=== PATIENT | male | born 1975 | race Caucasian/White ===

== ENCOUNTER 2017-07-29 14:56 | Inpatient (IN) | payer OTHER ==
[2017-07-29] MEDS ORDERED: PHARMACY DOSING REQUEST MC ONE (15:32)
[2017-07-29 15:51] LABS: Hematocrit 47.3 % (42-50); Hemoglobin 15.5 gm/dl (12.5-18.0); Mean Cell Volume 87.8 fl (78-100); Mean Corpuscular Hemoglobin 28.8 pg (26-32); Mean Corpuscular Hgb Concent. 32.8 g/dl (32-36); Mean Platelet Volume 12.5 fl (6-9.5); Platelet Count 234 K/mm3 (150-450); Red Blood Count 5.39 M/mm3 (4.1-5.6); Red Cell Distribution Width 14.6 % (11.5-14.0); White Blood Count 12.6 K/mm3 (4.0-10.5)
[2017-07-29 16:13] LABS: ALBUMIN 4.5 g/dL (3.5-5.0); ALKALINE PHOSPHATASE 49 U/L (38-126); ANION GAP 17.3 MEQ/L (5-15); BLOOD UREA NITROGEN 13 mg/dL (9-20); CHLORIDE 101 mmol/L (98-107); Calcium 9.8 mg/dL (8.4-10.2); Carbon Dioxide 25 mmol/L (22-30); Creatinine 1 1.01 mg/dL (0.66-1.25); Glucose 111 mg/dL (74-106); SGOT/AST 23 U/L (17-59); SGPT/ALT 31 U/L (0-50); SODIUM 140 mmol/L (137-145); Total Protein 8.1 g/dL (6.3-8.2)
[2017-07-29] MEDS: Sodium Chloride 0.9% 1000 ML 1,000 ML IV SCH (16:14)
[2017-07-29] MEDS: FLAGYL 500 MG IVPB 500 MG/100 ML BAG IV SCH ×2 (16:15→22:58)
[2017-07-29] MEDS: MORPHINE SULFATE 4 MG INJ IV PRN ×2 (17:22→21:19)
[2017-07-29] MEDS: MERREM IV SCH ×2 (17:22→21:17)
[2017-07-29] MEDS: DEXTROSE IV SCH ×2 (17:22→21:17)
[2017-07-29] MEDS: WATER IV SCH ×2 (17:22→21:17)
[2017-07-30] MEDS: MORPHINE SULFATE 4 MG INJ IV PRN ×3 (02:55→20:42)
[2017-07-30] MEDS: Sodium Chloride 0.9% 1000 ML 1,000 ML IV SCH ×2 (04:38→19:11)
[2017-07-30] MEDS: DEXTROSE IV SCH ×3 (05:01→22:04)
[2017-07-30] MEDS: MERREM IV SCH ×3 (05:01→22:04)
[2017-07-30] MEDS: WATER IV SCH ×3 (05:01→22:04)
[2017-07-30 05:52] LABS: Hemoglobin 15.1 gm/dl (12.5-18.0); Mean Cell Volume 88.8 fl (78-100); Mean Corpuscular Hemoglobin 29.2 pg (26-32); Mean Corpuscular Hgb Concent. 32.8 g/dl (32-36); Mean Platelet Volume 12.6 fl (6-9.5); Platelet Count 213 K/mm3 (150-450); Red Blood Count 5.18 M/mm3 (4.1-5.6); Red Cell Distribution Width 14.5 % (11.5-14.0); White Blood Count 13.9 K/mm3 (4.0-10.5)
[2017-07-30] MEDS: FLAGYL 500 MG IVPB 500 MG/100 ML BAG IV SCH ×3 (06:37→23:26)
--- NOTE | 2017-07-30 09:50 | CONS ---
CONSULT DATE: 07/29/2017 HISTORY: The patient is a 41 year-old male who started having left lower quadrant pain over the past couple of weeks that was worse yesterday. He apparently went over to [facility] and had CT scan done that was read by the radiologist about 6:00 showing diverticulitis, question of microperforation, whether that was not called to the ordering physician or not but he did not see Dr. Trevino until today who referred him to the hospital for admission. PAST MEDICAL HISTORY: The patient said he has diabetes but he does not take any medications for it in a long time. Apparently history of some hypertension as well. PAST SURGICAL HISTORY: He denied any abdominal surgery. He denied any colonoscopy in the past. He did have right finger surgery in the past in 2003. MEDICATIONS: He has taken some Colace and Nexium in the past. ALLERGIES: NKDA. FAMILY HISTORY: Diabetes, heart disease, some stroke in the family. He has family history of some diverticular disease, negative for colon cancer. SOCIAL HISTORY: He denies alcohol abuse. One pack per day smoker. REVIEW OF SYSTEMS: Twelve systems reviewed per admission assessment. He denies any liver problems or hepatitis. He is overweight. No chest pain or palpitations other systems negative or noncontributory as above and per preadmission questionnaire. PHYSICAL EXAMINATION: GENERAL: No acute distress. Afebrile currently. HEENT: Sclera nonicteric. NECK: No JVD. CHEST: Equal excursion, nonlabored breathing. CVS: Regular rate and rhythm. ABDOMEN: Quite soft. He does have some tenderness in left lower quadrant. No rebound currently. EXTREMITIES: No edema. He has some tattoos. NEURO: Alert. He seems to be moving extremities grossly symmetrically. LAB DATA AND TESTS: White blood cell count 12 done this afternoon. Liver function tests fairly unremarkable. Hemoglobin 15.5, PLT count 234,000. CT scan again done yesterday apparently looked like the reading time was 6:00 by [facility] Radiologist showed some wall thickening, inflammation of sigmoid colon. Question whether acute diverticulitis or postoperative gas, question microperforation but no large collection, no mass or free air. Appendix is normal. No other acute inflammatory changes in the abdomen. He also had some renal cysts apparently. IMPRESSION: Acute left lower quadrant pain. CT findings suggestive of acute diverticulitis on CT scan done yesterday with possible microperforation. I do not feel he needs any emergent surgery now. I do feel he needs a trial of IV antibiotics, medical management, bowel rest until his pain dramatically improves. He denies any bloody stools. Again, he has not been on antibiotics the past two weeks so he needs a good trial of IV antibiotics and bowel rest. He understands though I do not think he needs emergent surgery right at this moment but if he fails to improve may need to consider follow up progress CT scan. If he significantly worsens would need to consider open laparotomy and resection possible ostomy. He prefers to try the conservative approach at this time. Again, will follow serial labs, exams, continue IV antibiotics, bowel rest for now and IV hydration. Likely one of my partners will stop by and check on him tomorrow on his way through from [facility].
--- NOTE | 2017-07-30 11:48 | PCM.NOTE ---
Date and Time: 07/30/17 114 Subjective Assessment: still c/o abdominal pain, - Review of Systems Constitutional: No Fever, No Chills Eyes: No Symptoms Ears, Nose, & Throat: No Symptoms Respiratory: No Cough, No Short Of Breath Cardiac: No Chest Pain, No Edema, No Syncope Abdominal/Gastrointestinal: Abdominal Pain, No Nausea, No Vomiting, No Diarrhea Genitourinary Symptoms: No Dysuria Musculoskeletal: No Back Pain, No Neck Pain Skin: No Rash Neurological: No Dizziness, No Focal Weakness, No Sensory Changes Psychological: No Symptoms Endocrine: No Symptoms Hematologic/Lymphatic: No Symptoms Immunological/Allergic: No Symptoms Objective Exam General Appearance: no apparent distress, alert Neurologic Exam: alert, oriented x 3, cooperative, normal mood/affect, nml cerebellar function, sensation nml, No motor deficits Skin Exam: normal color, warm, dry Eye Exam: PERRL, EOMI, eyes nml inspection Ears, Nose, Throat Exam: normal ENT inspection, pharynx normal, moist mucous membranes Neck Exam: normal inspection, non-tender, supple, full range of motion Respiratory Exam: normal breath sounds, lungs clear, No respiratory distress Cardiovascular Exam: regular rate/rhythm, normal heart sounds Gastrointestinal/Abdomen Exam: soft, tenderness (LLQ), No mass Extremity Exam: normal inspection, normal range of motion Back Exam: normal inspection, normal range of motion, No CVA tenderness, No vertebral tenderness Male Genitalia Exam: deferred Rectal Exam: deferred OBJECTIVE DATA Vital Signs: Vital Signs - 24 hr Temp Pulse Resp BP Pulse Ox 07/30/17 07:28 98.2 F 77 20 126/59 94 L 07/30/17 04:00 98.0 F 77 18 138/66 93 L 07/30/17 00:00 98.3 F 86 18 168/90 95 07/29/17 20:00 98.9 F 86 14 171/89 95 07/29/17 16:25 99.3 F 88 20 178/89 Pain Assessment - Last Documented Pain Intensity 8 Pain Scale Used 0-10 Pain Scale Intake and Output: Intake & Output 07/27/17 07/28/17 07/29/17 07/30/17 11:59 11:59 11:59 11:59 Intake Total 1222 Output Total 875 Balance 347 Weight 128.8 kg Lab Results: Lab Results-Last 24 Hours 07/29/17 07/29/17 07/30/17 Range/Units 15:48 15:48 05:28 WBC 12.6 H 13.9 H (4.0-10.5) K/mm3 RBC 5.39 5.18 (4.1-5.6) M/mm3 Hgb 15.5 15.1 (12.5-18.0) gm/dl Hct 47.3 46.0 (42-50) % MCV 87.8 88.8 (78-100) fl MCH 28.8 29.2 (26-32) pg MCHC 32.8 32.8 (32-36) g/dl RDW 14.6 H 14.5 H (11.5-14.0) % Plt Count 234 213 (150-450) K/mm3 MPV 12.5 H 12.6 H (6-9.5) fl Sodium 140 (137-145) mmol/L Potassium 4.0 (3.5-5.1) mmol/L Chloride 101 (98-107) mmol/L Carbon Dioxide 25 (22-30) mmol/L Anion Gap 17.3 H (5-15) MEQ/L BUN 13 (9-20) mg/dL Creatinine 1.01 (0.66-1.25) mg/dL Estimated GFR > 60.0 ML/MIN Glucose 111 H (74-106) mg/dL Calcium 9.8 (8.4-10.2) mg/dL Total Bilirubin 0.40 (0.2-1.3) mg/dL AST 23 (17-59) U/L ALT 31 (0-50) U/L Alkaline Phosphatase 49 (38-126) U/L Serum Total Protein 8.1 (6.3-8.2) g/dL Albumin 4.5 (3.5-5.0) g/dL Assessment/Plan (1) Abdominal pain Current Visit: Yes Status: Acute Qualifiers: Abdominal location: left lower quadrant Qualified Code(s): R10.32 - Left lower quadrant pain Code(s): R10.9 - UNSPECIFIED ABDOMINAL PAIN (2) Diverticulitis Current Visit: Yes Status: Acute Assessment & Plan: continue present management Code(s): K57.92 - DVTRCLI OF INTEST, PART UNSP, W/O PERF OR ABSCESS W/O BLEED
[2017-07-31] MEDS: DEXTROSE IV SCH ×3 (05:39→21:46)
[2017-07-31] MEDS: MERREM IV SCH ×3 (05:39→21:46)
[2017-07-31] MEDS: WATER IV SCH ×3 (05:39→21:46)
[2017-07-31 05:50] LABS: Hematocrit 45.3 % (42-50); Hemoglobin 14.6 gm/dl (12.5-18.0); Mean Corpuscular Hemoglobin 28.7 pg (26-32); Mean Corpuscular Hgb Concent. 32.2 g/dl (32-36); Mean Platelet Volume 12.5 fl (6-9.5); Platelet Count 214 K/mm3 (150-450); Red Blood Count 5.09 M/mm3 (4.1-5.6); Red Cell Distribution Width 14.5 % (11.5-14.0); White Blood Count 9.3 K/mm3 (4.0-10.5)
--- NOTE | 2017-07-31 07:49 | CONS ---
CONSULT DATE: 07/30/2017 REASON FOR CONSULT: Diverticulitis. HISTORY: He apparently presented to [facility] and had a CT scan showing diverticulitis with possible abscess. Films are not available at this time. The report is available on the chart. He presented and was admitted here at [facility]. He is feeling a little better. He has had some flatus. This is his first major episode. He has not had any colonoscopy to date. He has not had any trouble and this just started here in the last few days. He was feeling worse but he is feeling better. PHYSICAL EXAMINATION: He is a very robust gentleman. ABDOMEN: Pretty soft. There is no no rebound. There is a little bit of left lower quadrant tenderness. His CT is noted. His white count elevated. He is NPO and he has IV fluids and IV antibiotics going. IMPRESSION: Acute diverticulitis with possible extravasation abscess. We will review his films at [facility] later today.
[2017-07-31] MEDS: FLAGYL 500 MG IVPB 500 MG/100 ML BAG IV SCH ×3 (08:15→21:46)
--- NOTE | 2017-07-31 09:15 | PCM.NOTE ---
Date and Time: 07/31/17913 Subjective Assessment: still c/o abdominal pain - Review of Systems Constitutional: No Fever, No Chills Eyes: No Symptoms Ears, Nose, & Throat: No Symptoms Respiratory: No Cough, No Short Of Breath Cardiac: No Chest Pain, No Edema, No Syncope Abdominal/Gastrointestinal: Abdominal Pain, No Nausea, No Vomiting, No Diarrhea Genitourinary Symptoms: No Dysuria Musculoskeletal: No Back Pain, No Neck Pain Skin: No Rash Neurological: No Dizziness, No Focal Weakness, No Sensory Changes Psychological: No Symptoms Endocrine: No Symptoms Hematologic/Lymphatic: No Symptoms Immunological/Allergic: No Symptoms Objective Exam General Appearance: no apparent distress, alert Neurologic Exam: alert, oriented x 3, cooperative, normal mood/affect, nml cerebellar function, sensation nml, No motor deficits Skin Exam: normal color, warm, dry Eye Exam: PERRL, EOMI, eyes nml inspection Ears, Nose, Throat Exam: normal ENT inspection, pharynx normal, moist mucous membranes Neck Exam: normal inspection, non-tender, supple, full range of motion Respiratory Exam: normal breath sounds, lungs clear, No respiratory distress Cardiovascular Exam: regular rate/rhythm, normal heart sounds Gastrointestinal/Abdomen Exam: soft, tenderness (LLQ), No mass Extremity Exam: normal inspection, normal range of motion Back Exam: normal inspection, normal range of motion, No CVA tenderness, No vertebral tenderness Male Genitalia Exam: deferred Rectal Exam: deferred OBJECTIVE DATA Vital Signs: Vital Signs - 24 hr Temp Pulse Resp BP Pulse Ox 07/31/17 07:02 97.3 F 81 20 145/87 95 07/31/17 04:00 97.4 F 72 20 131/86 98 07/31/17 00:00 97.9 F 70 20 128/58 98 07/30/17 20:05 97.7 F 80 18 140/83 97 07/30/17 15:54 98.4 F 84 18 136/95 95 07/30/17 12:30 98 F 70 20 127/68 96 Pain Assessment - Last Documented Pain Intensity 3 Pain Scale Used 0-10 Pain Scale Intake and Output: Intake & Output 07/28/17 07/29/17 07/30/17 07/31/17 11:59 11:59 11:59 11:59 Intake Total 1222 1420 Output Total 596 7775 Balance 347 -355 Weight 128.8 kg Lab Results: Lab Results-Last 24 Hours 07/31/17 Range/Units 05:19 WBC 9.3 (4.0-10.5) K/mm3 RBC 5.09 (4.1-5.6) M/mm3 Hgb 14.6 (12.5-18.0) gm/dl Hct 45.3 (42-50) % MCV 89.0 (78-100) fl MCH 28.7 (26-32) pg MCHC 32.2 (32-36) g/dl RDW 14.5 H (11.5-14.0) % Plt Count 214 (150-450) K/mm3 MPV 12.5 H (6-9.5) fl Assessment/Plan (1) Abdominal pain Current Visit: Yes Status: Acute Qualifiers: Abdominal location: left lower quadrant Qualified Code(s): R10.32 - Left lower quadrant pain Code(s): R10.9 - UNSPECIFIED ABDOMINAL PAIN (2) Diverticulitis Current Visit: Yes Status: Acute Code(s): K57.92 - DVTRCLI OF INTEST, PART UNSP, W/O PERF OR ABSCESS W/O BLEED
[2017-07-31] MEDS: Sodium Chloride 0.9% 1000 ML 1,000 ML IV SCH (10:20)
[2017-08-01] MEDS: Sodium Chloride 0.9% 1000 ML 1,000 ML IV SCH (01:14)
[2017-08-01] MEDS: FLAGYL 500 MG IVPB 500 MG/100 ML BAG IV SCH (05:40)
[2017-08-01] MEDS: MORPHINE SULFATE 4 MG INJ IV PRN (05:44)
[2017-08-01] MEDS: DEXTROSE IV SCH (05:45)
[2017-08-01] MEDS: WATER IV SCH (05:45)
[2017-08-01] MEDS: MERREM IV SCH (05:45)
[2017-08-01 05:57] LABS: Hematocrit 44.6 % (42-50); Hemoglobin 14.4 gm/dl (12.5-18.0); Mean Cell Volume 88.8 fl (78-100); Mean Corpuscular Hemoglobin 28.7 pg (26-32); Mean Corpuscular Hgb Concent. 32.3 g/dl (32-36); Mean Platelet Volume 12.9 fl (6-9.5); Platelet Count 232 K/mm3 (150-450); Red Blood Count 5.02 M/mm3 (4.1-5.6); Red Cell Distribution Width 14.3 % (11.5-14.0); White Blood Count 7.3 K/mm3 (4.0-10.5)
--- NOTE | 2017-08-01 08:29 | CONS ---
HISTORY: The patient was seen yesterday in consultation for diverticulitis possible perforation and rupture. His films were reviewed at [facility] yesterday and seemed more of a phlegmon of the sigmoid, having not seen anything that could be radiologically or surgically drained at this time. He is doing better. His white count is normal. He is hungry. His abdomen is totally soft. He is a very robust gentleman with very large abdominal wall. Further films have been ordered. He will be reassessed tomorrow.
[2017-08-01 09:17] VITALS: PULSE 62; O2SAT 96
[2017-08-01 11:32] VITALS: BP 160/72
--- NOTE | 2017-08-01 11:53 | PCM.NOTE ---
Date and Time: 08/01/17 1151 Subjective Assessment: doing better, - Review of Systems Constitutional: No Fever, No Chills Eyes: No Symptoms Ears, Nose, & Throat: No Symptoms Respiratory: No Cough, No Short Of Breath Cardiac: No Chest Pain, No Edema, No Syncope Abdominal/Gastrointestinal: No Abdominal Pain, No Nausea, No Vomiting, No Diarrhea Genitourinary Symptoms: No Dysuria Musculoskeletal: No Back Pain, No Neck Pain Skin: No Rash Neurological: No Dizziness, No Focal Weakness, No Sensory Changes Psychological: No Symptoms Endocrine: No Symptoms Hematologic/Lymphatic: No Symptoms Immunological/Allergic: No Symptoms Objective Exam General Appearance: no apparent distress, alert Neurologic Exam: alert, oriented x 3, cooperative, normal mood/affect, nml cerebellar function, sensation nml, No motor deficits Skin Exam: normal color, warm, dry Eye Exam: PERRL, EOMI, eyes nml inspection Ears, Nose, Throat Exam: normal ENT inspection, pharynx normal, moist mucous membranes Neck Exam: normal inspection, non-tender, supple, full range of motion Respiratory Exam: normal breath sounds, lungs clear, No respiratory distress Cardiovascular Exam: regular rate/rhythm, normal heart sounds Gastrointestinal/Abdomen Exam: soft, No tenderness, No mass Extremity Exam: normal inspection, normal range of motion Back Exam: normal inspection, normal range of motion, No CVA tenderness, No vertebral tenderness Male Genitalia Exam: deferred Rectal Exam: deferred OBJECTIVE DATA Vital Signs: Vital Signs - 24 hr Temp Pulse Resp BP Pulse Ox 08/01/17 11:31 97.8 F 62 18 160/72 96 08/01/17 08:15 97.7 F 62 18 153/79 96 08/01/17 04:15 98.5 F 65 20 137/69 98 08/01/17 00:05 97.9 F 63 16 132/70 98 07/31/17 20:00 97.8 F 67 18 142/82 98 07/31/17 16:00 98.4 F 68 20 145/74 98 Pain Assessment - Last Documented Pain Intensity 4 Pain Scale Used 0-10 Pain Scale Intake and Output: Intake & Output 07/29/17 07/30/17 07/31/17 08/01/17 11:59 11:59 11:59 11:59 Intake Total 1222 1420 4614 Output Total 324 0605 1600 Balance 347 -355 3014 Weight 128.8 kg Lab Results: Lab Results-Last 24 Hours 08/01/17 Range/Units 05:23 WBC 7.3 (4.0-10.5) K/mm3 RBC 5.02 (4.1-5.6) M/mm3 Hgb 14.4 (12.5-18.0) gm/dl Hct 44.6 (42-50) % MCV 88.8 (78-100) fl MCH 28.7 (26-32) pg MCHC 32.3 (32-36) g/dl RDW 14.3 H (11.5-14.0) % Plt Count 232 (150-450) K/mm3 MPV 12.9 H (6-9.5) fl Assessment/Plan (1) Abdominal pain Current Visit: Yes Status: Acute Qualifiers: Abdominal location: left lower quadrant Qualified Code(s): R10.32 - Left lower quadrant pain Code(s): R10.9 - UNSPECIFIED ABDOMINAL PAIN (2) Diverticulitis Current Visit: Yes Status: Acute Code(s): K57.92 - DVTRCLI OF INTEST, PART UNSP, W/O PERF OR ABSCESS W/O BLEED
--- NOTE | 2017-08-01 13:19 | PCM.DS ---
Discharge Summary Date of Admission: 07/29/17 19:33 Admitting Physician: JEREMIAH MARTIN Consults: Consults on Case 07/29/17 15:32 Consult Surgery ROUTINE Primary Care Provider: JEREMIAH MARTIN Allergies Allergies No Known Drug Allergies Allergy (Verified 07/29/17 15:49) Hospital Summary - Hospital Course Hospital Course: Last Vital Signs Temp 97.8 F 08/01/17 11:31 Pulse 62 08/01/17 11:31 Resp 18 08/01/17 11:31 BP 160/72 08/01/17 11:31 Pulse Ox 96 08/01/17 11:31 Allergies No Known Drug Allergies Allergy (Verified 07/29/17 15:49) Active Medications Metronidazole (Flagyl 500 Mg Ivpb) 500 mg in 100 mls @ 200 mls/hr IV Q8HRT ANTIONETTE Stop: 08/28/17 15:59 Last Admin: 08/01/17 05:40 Dose: 200 mls/hr Sodium Chloride (Sodium Chloride 0.9% 1000 Ml) 1,000 mls @ 100 mls/hr IV .Q10H ANTIONETTE Stop: 08/28/17 15:44 Last Admin: 08/01/17 01:14 Dose: 100 mls/hr Meropenem 1 g/ Dextrose 100 mls @ 200 mls/hr IV Q8HT ANTIONETTE Stop: 08/28/17 16:14 Last Admin: 08/01/17 05:45 Dose: 200 mls/hr Morphine Sulfate (Morphine Sulfate 4 Mg Inj) 4 mg IV Q4H PRN PRN PRN Reason: PAIN Stop: 08/03/17 16:41 Last Admin: 08/01/17 05:44 Dose: 4 mg Intake & Output 08/01/17 08/02/17 11:59 11:59 Intake Total 4614 480 Output Total 1600 Balance 3014 480 Lab Tests 08/01/17 05:23 WBC 7.3 RBC 5.02 Hgb 14.4 Hct 44.6 MCV 88.8 MCH 28.7 MCHC 32.3 RDW 14.3 H Plt Count 232 MPV 12.9 H - Vitals & Intake/Output Vital Signs: Vital Signs Temperature 97.8 F 08/01/17 11:31 Pulse Rate 62 08/01/17 11:31 Respiratory Rate 18 08/01/17 11:31 Blood Pressure 160/72 08/01/17 11:31 O2 Sat by Pulse Oximetry 96 08/01/17 11:31 Intake & Output: Intake & Output 07/30/17 07/31/17 08/01/17 08/02/17 11:59 11:59 11:59 11:59 Intake Total 1222 1420 4614 480 Output Total 870 4355 1600 Balance 347 -855 3014 480 Weight 128.8 kg - Lab Result Diagrams: 08/01/17 05:23 07/29/17 15:48 Lab Results-Last 24 Hrs: Lab Results-Last 24 Hours 08/01/17 Range/Units 05:23 WBC 7.3 (4.0-10.5) K/mm3 RBC 5.02 (4.1-5.6) M/mm3 Hgb 14.4 (12.5-18.0) gm/dl Hct 44.6 (42-50) % MCV 88.8 (78-100) fl MCH 28.7 (26-32) pg MCHC 32.3 (32-36) g/dl RDW 14.3 H (11.5-14.0) % Plt Count 232 (150-450) K/mm3 MPV 12.9 H (6-9.5) fl - Procedures and Test Procedures and Tests throughout Hospitalization: Therapy Orders & Screens 07/29/17 17:22 Smoking Cessation Education ONCE Comment: Diagnosis: diverticulitis Smoking Status: Current every day smoker How long have you smoked: 20 years Have you smoked in the past 12 months: Yes Approximately how many cigarettes per day: pack a day Do you dip or chew tobacco: No Discharge Exam General Appearance: no apparent distress, alert Neurologic Exam: alert, oriented x 3, cooperative, normal mood/affect, nml cerebellar function, sensation nml, No motor deficits Skin Exam: normal color, warm, dry Eye Exam: PERRL, EOMI, eyes nml inspection Ears, Nose, Throat Exam: normal ENT inspection, pharynx normal, moist mucous membranes Neck Exam: normal inspection, non-tender, supple, full range of motion Respiratory Exam: normal breath sounds, lungs clear, No respiratory distress Cardiovascular Exam: regular rate/rhythm, normal heart sounds Gastrointestinal/Abdomen Exam: soft, No tenderness, No mass Extremity Exam: normal inspection, normal range of motion Back Exam: normal inspection, normal range of motion, No CVA tenderness, No vertebral tenderness Male Genitalia Exam: deferred Rectal Exam: deferred Final Diagnosis/Problem List - Final Discharge Diagnosis/Problem (1) Abdominal pain Current Visit: Yes Status: Resolved (2) Diverticulitis Current Visit: Yes Status: Resolved Assessment & Plan: will discharge home with flagyl 500 mg po tid for 7 days - Discharge Discharge Date: 08/01/17 Disposition: Home, Self-Care Condition: Stable Prescriptions: New Metronidazole 500 mg [Flagyl 500 MG] 500 mg PO TID #21 tablet Continue Esomeprazole Magnesium [Nexium] 20 mg PO BID Empagliflozin/Metformin HCl [Synjardy Xr 10-1,000 mg Tablet] 1,000 mg PO DAILY Instructions: Diverticulitis Follow up with: MARCO ANTONIO MARI [ACTIVE STAFF] - 09/04/17 1:05 pm (specialty clinic) JEREMIAH MARTIN MD [Primary Care Provider] - 1 Week
== END 2017-08-01 14:40 | disposition home or self-care (01) | DRG 392 ==
LOC: MED SURG 15:06 → OBSVTOIN 19:33 → MED SURG 19:33
PROVIDERS: ADMIT General Practice; ATTEND General Practice
DX: R10.32 Left lower quadrant pain (principal); K57.92 Diverticulitis of intestine, part unspecified, without perforation or abscess without bleeding
CPT/HCPCS: 36415; 80053; 85027; J2270

== ENCOUNTER 2017-10-02 11:22 | Day surgery (SDC) | payer OTHER ==
--- NOTE | 2017-10-01 15:27 | HP ---
DATE OF SURGERY: 10/02/2017 ANTICIPATED PROCEDURE: Colonoscopy. HISTORY OF PRESENT ILLNESS: The patient has diverticulitis about six weeks ago, presents for re-examination. PAST MEDICAL HISTORY: ALLERGIES: NONE. MEDICATIONS: Nexium. PAST SURGICAL HISTORY: Ring finger cut off on the right hand. SOCIAL HISTORY: One pack per day. ETOH negative. FAMILY HISTORY: Negative. PHYSICAL EXAMINATION: VITAL SIGNS: Normal. CHEST: Clear. COR: Regular. ABDOMEN: No palpable organomegaly or mass. IMPRESSION: Diverticulitis. PLAN: Evaluation.
[~2017-10-02 11:22] MED LIST: Lactated Ringers 1,000 ML IV SCH
[2017-10-02] MEDS ORDERED: Versed 2 MG/2 ML Injection IV ONE (11:23)
[2017-10-02] MEDS ORDERED: DIPRIVAN 200 MG/20 ML IV ONE (11:23)
[2017-10-02] MEDS ORDERED: Lactated Ringers 1,000 ML IV ONE (12:05)
--- NOTE | 2017-10-02 14:28 | OP ---
SURGERY DATE/TIME: 10/02/2017 1346 PREOPERATIVE DIAGNOSIS: Episode of diverticulitis 08/11/2017. POSTOPERATIVE DIAGNOSIS: Resolving diverticulosis. PROCEDURE: Colonoscopy complete to cecum. SURGEON: Darvin Dorman M.D. SKIVER HAND: Kleber Perez M.D. ANESTHESIA: MAC. COMPLICATIONS: None. CONDITION: Stable. INDICATION: The patient presents for evaluation. He had diverticulitis about six weeks ago. He has not had endoscopic examination to date. DESCRIPTION OF PROCEDURE: Taken to endoscopy. Left lateral decubitus position. Anal digital examination satisfactory. Scope introduced. Sigmoid was a little indurated, a little full and edematous. Descending colon normal. Splenic flexure normal. Transverse colon normal. Hepatic flexure normal. Ascending colon normal. Ileocecal valve normal. Circumferential withdrawal no mucosal lesions were noted. There was a little bit of fullness, induration and almost a semi polypoid-like nature to a little bit of the sigmoid colon. IMPRESSION: Resolving diverticulitis. PLAN: Observation.
[2017-10-02 16:08] VITALS: O2SAT 99
[2017-10-02 16:09] VITALS: BP 142/88; PULSE 76
== END 2017-10-02 15:20 | disposition home or self-care (01) ==
LOC: SDC 11:22
PROVIDERS: ATTEND Surgery
DX: K57.90 Diverticulosis of intestine, part unspecified, without perforation or abscess without bleeding (principal); Z72.0 Tobacco use; E11.9 Type 2 diabetes mellitus without complications
CPT/HCPCS: 82962; J2250; J2704

== ENCOUNTER 2019-03-14 15:57 | Emergency (ER) | payer OTHER ==
--- NOTE | 2019-03-14 16:25 | ERPHSYRPT ---
- History of Present Illness Time Seen by Provider: 03/14/19 16:24 Source: patient Exam Limitations: no limitations Patient Subjective Stated Complaint: Pt has a red, swollen, and open area on right butt cheek that is believed to be a spider bite, Triage Nursing Assessment: Pt walked into the ER, vitals wnl, pulses normal, rates pain 5/10, doesn't appear to be in any distress Physician History: The patient is a 43-year-old male with a past medical history significant for diabetes mellitus presents with a chief complaint of a wound to his right buttock that he attributes to being bitten by a spider. Of note, he did not actually witness a spider. oonset of her first 2 days ago. HEENT there is an area of induration and fluctuance to the lower aspect of his right buttocks in addition to. The drainage from the affected area over the last day. The pain is described as a throbbing pain, constant, nonradiating in mild to moderate severity and increases whenever he sits. He denies fever, chills, prior history of MRSA and reports that his tetanus prophylaxis is updated a year ago. Quality: painful Severity: mild Location: other (Right buttock) Possible Causes: other (Immunosuppressed from DM) Allergies/Adverse Reactions: hydrocodone [From [place]] Adverse Reaction (Verified 03/14/19 16:18) oxycodone [From Percocet] Adverse Reaction (Verified 03/14/19 16:18) Home Medications: Esomeprazole Magnesium [Nexium] 40 mg PO BID 09/24/17 [History] Lisinopril 5 mg PO DAILY 03/14/19 [History] Metformin HCl Xr 500 mg [Glucophage XR 500 MG] 500 mg PO DAILY 03/14/19 [ History] Naproxen 500 mg PO BID 03/14/19 [History] Hx Tetanus, Diphtheria Vaccination/Date Given: (UNKNOWN) Hx Influenza Vaccination/Date Given: No Hx Pneumococcal Vaccination/Date Given: No - Review of Systems Constitutional: No Fever, No Chills Eyes: No Symptoms Ears, Nose, & Throat: No Symptoms Respiratory: No Symptoms Cardiac: No Symptoms Skin: Other (Cutaneous abscess to R buttock) Neurological: No Dizziness - Past Medical History Pertinent Past Medical History: No Neurological History: No Pertinent History ENT History: No Pertinent History Cardiac History: No Pertinent History, Hypertension Respiratory History: No Pertinent History Endocrine Medical History: Diabetes Type II Musculoskeletal History: No Pertinent History, Fractures GI Medical History: Diverticulitis, GERD History: No Pertinent History Psycho-Social History: No Pertinent History Male Reproductive Disorders: No Pertinent History Other Medical History: dbt-diet controlled - Past Surgical History Past Surgical History: Yes Neuro Surgical History: No Pertinent History Cardiac: No Pertinent History Respiratory: No Pertinent History Gastrointestinal: No Pertinent History Genitourinary: No Pertinent History Musculoskeletal: Orthopedic Surgery Male Surgical History: No Pertinent History Other Surgical History: finger surgery, foot - Social History Smoking Status: Current every day smoker How long have you smoked: 20 years Exposure to second hand smoke: Yes Drug Use: none Patient Lives Alone: Yes - Nursing Vital Signs Nursing Vital Signs: Initial Vital Signs Temperature 99.0 F 03/14/19 16:03 Pulse Rate 94 H 03/14/19 16:03 Blood Pressure 148/82 03/14/19 16:03 O2 Sat by Pulse Oximetry 97 03/14/19 16:03 Pain Scale Pain Intensity 3 - Physical Exam General Appearance: no apparent distress Eye Exam: PERRL/EOMI Ears, Nose, Throat Exam: normal ENT inspection Neck Exam: normal inspection Respiratory Exam: normal breath sounds, lungs clear, No chest tenderness, No respiratory distress Cardiovascular Exam: regular rate/rhythm, normal heart sounds, normal peripheral pulses, capillary refill <2 sec, other (Did not check the pulse in feet), No murmur, No friction rub Gastrointestinal/Abdomen Exam: soft, No tenderness Back Exam: normal inspection Extremity Exam: other (Patient was wearing a left walking boot) Neurologic Exam: alert, oriented x 3, cooperative, normal mood/affect Skin Exam: other (2x2 cm area of induration and fluctuance noted to the inferior aspect of left buttock with scant purulent drainage and minimum surrounding cellulitis), No rash, No petechiae, No jaundice, No cyanosis, No diaphoresis SpO2 Interpretation: normal SpO2: 97 O2 Delivery: Room Air Procedures - Incision and Drainage Timeout: Performed Site: Right buttock Anesthesia: 2% Lidocaine cc's of anesthesia: 4 Blade Size: 11 I & D Procedure: betadine prep, other (1 inch iodoform guaze) Results: small amount pus - Course Nursing assessment & vital signs reviewed: Yes Ordered Tests: Active Orders 24 hr Category Date Time Status Wound Care STAT Care 03/14/19 16:33 Active CULTURE,WOUND Stat Lab 03/14/19 17:36 Received Medication Summary Discontinued Medications Generic Name Dose Route Start Last Admin Trade Name Gianni PRN Reason Stop Dose Admin Doxycycline Hyclate 100 mg 03/14/19 17:14 03/14/19 17:15 Vibramycin 100 Mg PO 03/14/19 17:15 100 mg STAT ONE Administration Doxycycline Hyclate Confirm 03/14/19 17:19 Vibramycin 100 Mg Administered 03/14/19 17:20 Dose 100 mg .ROUTE .STK-MED ONE Fentanyl Citrate 100 mcg 03/14/19 16:35 03/14/19 16:44 Sublimaze 100 Mcg/2 Ml INTRANASAL 03/14/19 16:36 100 mcg STAT ONE Administration Fentanyl Citrate Confirm 03/14/19 16:40 Sublimaze 100 Mcg/2 Ml Administered 03/14/19 16:41 Dose 100 mcg .ROUTE .STK-MED ONE Lidocaine HCl 5 ml 03/14/19 16:33 03/14/19 16:43 Xylocaine 2% Hcl 20 Ml Mdv IJ 03/14/19 16:34 5 ml STAT ONE Administration Lidocaine HCl Confirm 03/14/19 16:40 Xylocaine 2% Hcl 20 Ml Mdv Administered 03/14/19 16:41 Dose 5 ml .ROUTE .STK-MED ONE - Progress Progress: improved Counseled pt/family regarding: diagnosis, need for follow-up (Discussed he needed to f/u with his PCP in the next 48 hrs for a wound check) - Departure Departure Disposition: Home Clinical Impression: Cutaneous abscess of buttock Condition: Good Critical Care Time: No Referrals: JEREMIAH MARTIN MD [Primary Care Provider] - Instructions: Skin Abscess Additional Instructions: Please follow-up with your primary care provider in the next 48 hrs for a wound check Plan of Treatment: Nontoxic in appearance. The patient presents with what appears to be a cutaneous abscess which is likely not secondary to a spider bite given that he did not witness an actual spider. I suspect the patient's abscess is likely secondary to MRSA and therefore he'll be prescribed doxycycline (avoiding bactrim due to him taking lisinopril) take her antibiotic treatment after undergoing successful incision and drainage. The surrounding area of cellulitis was outlined with a skin marker and the wound was packed with half inch to an inch iodoform gauze. Given that the patient endorsed that he is allergic to [place] addition of Percocet he was content with taken naproxen for pain. He is also instructed to followup in 48 hours with his primary care spider for a wound check and given the return precautions for wound infection. He agreed with verbally understood the discharge plan. Prescriptions: Doxycycline Hyclate 100 mg [Vibramycin 100 MG] 100 mg PO BID #14 tab
[2019-03-14] MEDS ORDERED: XYLOCAINE 2% HCL 20 ML MDV ONE (16:40)
[2019-03-14] MEDS ORDERED: SUBLIMAZE 100 MCG/2 ML ONE (16:40)
[2019-03-14] MEDS: XYLOCAINE 2% HCL 20 ML MDV IJ ONE (16:43)
[2019-03-14] MEDS: SUBLIMAZE 100 MCG/2 ML INTRANASAL ONE (16:44)
[2019-03-14] MEDS: Vibramycin 100 MG PO ONE (17:15)
[2019-03-14 17:19] VITALS: BP 168/101; PULSE 96
[2019-03-14] MEDS ORDERED: Vibramycin 100 MG ONE (17:19)
[2019-03-14 18:42] VITALS: O2SAT 97
== END 2019-03-14 17:28 | disposition home or self-care (01) ==
LOC: ED 15:57
DX: L02.31 Cutaneous abscess of buttock (principal)
CPT/HCPCS: 87070; 87077; 87186; 96372; 99284; J3010; A9270-GY

== ENCOUNTER 2019-05-28 14:44 | Emergency (ER) | payer OTHER ==
[2019-05-28 15:01] VITALS: BP 154/95; PULSE 96; O2SAT 96
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
--- NOTE | 2019-05-28 15:42 | XRAY ---
Indication: Pain. Comparison: None 3 views of the left ankle demonstrates tiny posterior heel spur and old midfoot fracture with intact fixation plate/screws and accompanying heterotopic ossifications. No other bony, articular, or soft tissue abnormalities.
== END 2019-05-28 16:30 | disposition home or self-care (01) ==
LOC: ED 14:44
DX: M25.572 Pain in left ankle and joints of left foot (principal); Z98.890 Other specified postprocedural states
CPT/HCPCS: 73610; 99283

== ENCOUNTER 2019-07-04 12:15 | Observation (INO) | payer OTHER ==
[2019-07-04] MEDS ORDERED: Hydromorphone 1 mg/ml Ampule IV ONE (12:38)
[2019-07-04] MEDS ORDERED: Zofran 4 MG/2 ML VIAL IV ONE (12:38)
[2019-07-04] MEDS ORDERED: Sodium Chloride 0.9% 1000 ML 1,000 ML IV SCH ×3 (12:45→16:30)
[2019-07-04] MEDS ORDERED: TORAdol 30 mg Injection IV ONE (13:21)
[2019-07-04 13:22] LABS: Absolute Neutrophil Ct (ANC) 11.93 (1.4-6.9); BASOPHIL % 0.2 % (0.0-0.4); Basophil (Absolute #) 0.03 (0-0.4); Eosinophil % 0.7 % (0.00-5.0); Eosinophil (Absolute #) 0.11 (0-0.5); Hematocrit 44.6 % (42-50); Hemoglobin 14.5 gm/dl (12.5-18.0); Lymphocyte (Absolute #) 2.52 (1.0-4.6); Lymphocytes % 16.1 % (24.0-44.0); Mean Cell Volume 88.1 fl (78-100); Mean Corpuscular Hemoglobin 28.7 pg (26-32); Mean Corpuscular Hgb Concent. 32.5 g/dl (32-36); Mean Platelet Volume 11.7 fl (7.5-11.0); Monocyte (Absolute #) 1.08 (0.0-1.3); Monocytes % 6.9 % (0.0-12.0); Neutrophil % 76.1 % (36.0-66.0); Platelet Count 249 K/mm3 (150-450); Red Blood Count 5.06 M/mm3 (4.1-5.6); White Blood Count 15.7 K/mm3 (4.0-10.5)
[2019-07-04] MEDS ORDERED: Sodium Chloride 0.9% 1000 ML 1,000 ML ONE (13:23)
[2019-07-04] MEDS ORDERED: TORAdol 30 mg Injection ONE (13:23)
[2019-07-04] MEDS ORDERED: Zofran 4 MG/2 ML VIAL ONE (13:23)
[2019-07-04 13:36] LABS: ALBUMIN 4.2 g/dL (3.5-5.0); ALKALINE PHOSPHATASE 48 U/L (38-126); AMYLASE 58 U/L (30-110); ANION GAP 10.3 MEQ/L (5-15); BLOOD UREA NITROGEN 14 mg/dL (9-20); CHLORIDE 104 mmol/L (98-107); Calcium 9.3 mg/dL (8.4-10.2); Carbon Dioxide 28 mmol/L (22-30); Creatinine 1 0.98 mg/dL (0.66-1.25); Glucose 113 mg/dL (74-106); LIPASE 52 U/L (23-300); Potassium 3.9 mmol/L (3.5-5.1); SGOT/AST 23 U/L (17-59); SGPT/ALT 18 U/L (0-50); SODIUM 139 mmol/L (137-145); Total Protein 8.1 g/dL (6.3-8.2)
[2019-07-04 14:01] LABS: Appearance CLEAR (CLEAR); Bilirubin NEGATIVE (NEGATIVE); Blood NEGATIVE Ery/ul (0-5); Glucose NEGATIVE (NEGATIVE); Ketones NEGATIVE (NEGATIVE); Leukocyte Esterase NEGATIVE (NEGATIVE); Mucus SLIGHT /HPF (NEGATIVE); Nitrite NEGATIVE (NEGATIVE); Protein,Urine Dip NEGATIVE (Negative); Urobilinogen 2 mg/dL (0-1)
--- NOTE | 2019-07-04 15:19 | ERPHSYRPT ---
- History of Present Illness Time Seen by Provider: 07/04/19 12:30 Patient Subjective Stated Complaint: PT states "I am having a diverticulitis flairup. It started friday." Triage Nursing Assessment: Pt presented alert and oriented X3, skin pwd. Pt ambulates with an upright gait, slightly liimping. Physician History: Patient is a 43-year-old male with a known history of previous diverticulitis who presents with left lower quadrant pain for some day few days. Has any fever nausea vomiting Timing/Duration: yesterday (Days) Activities at Onset: none Quality: cramping, stabbing Abdominal Pain Onset Location: LLQ Pain Radiation: no radiation Severity of Pain-Max: moderate Severity of Pain-Current: moderate Modifying Factors: Improves With: nothing Associated Symptoms: denies symptoms Previous symptoms: same symptoms as today Allergies/Adverse Reactions: oxycodone [From Percocet] Adverse Reaction (Verified 05/28/19 15:03) Home Medications: Esomeprazole Magnesium [Nexium] 40 mg PO DAILY 09/24/17 [History] Metformin HCl Xr 500 mg [Glucophage XR 500 MG] 500 mg PO DAILY 03/14/19 [ History] Naproxen 500 mg PO BID 03/14/19 [History] lisinopriL [Lisinopril] 5 mg PO DAILY 03/14/19 [History] Hx Tetanus, Diphtheria Vaccination/Date Given: Yes Hx Influenza Vaccination/Date Given: No Hx Pneumococcal Vaccination/Date Given: No Immunizations Up to Date: Yes - Review of Systems Constitutional: No Fever, No Chills Eyes: No Symptoms Ears, Nose, & Throat: No Symptoms Respiratory: No Cough, No Dyspnea Cardiac: No Chest Pain, No Edema, No Syncope Abdominal/Gastrointestinal: Abdominal Pain, Diarrhea, No Nausea, No Vomiting Genitourinary Symptoms: No Dysuria Musculoskeletal: No Back Pain, No Neck Pain Skin: No Rash Neurological: No Dizziness, No Focal Weakness, No Sensory Changes Psychological: No Symptoms Endocrine: No Symptoms All Other Systems: Reviewed and Negative - Past Medical History Pertinent Past Medical History: Yes Neurological History: No Pertinent History ENT History: No Pertinent History Cardiac History: No Pertinent History, Hypertension Respiratory History: No Pertinent History Endocrine Medical History: Diabetes Type II Musculoskeletal History: No Pertinent History, Fractures GI Medical History: Diverticulitis, GERD History: No Pertinent History Psycho-Social History: No Pertinent History Male Reproductive Disorders: No Pertinent History Other Medical History: dbt-diet controlled - Past Surgical History Past Surgical History: Yes Neuro Surgical History: No Pertinent History Cardiac: No Pertinent History Respiratory: No Pertinent History Gastrointestinal: No Pertinent History Genitourinary: No Pertinent History Musculoskeletal: Orthopedic Surgery Male Surgical History: No Pertinent History Other Surgical History: finger surgery, foot - Social History Smoking Status: Current every day smoker How long have you smoked: years Exposure to second hand smoke: Yes Drug Use: none Patient Lives Alone: Yes - Nursing Vital Signs Nursing Vital Signs: Initial Vital Signs Temperature 97.8 F 07/04/19 12:22 Pulse Rate 96 H 07/04/19 12:22 Respiratory Rate 18 07/04/19 12:22 Blood Pressure 152/82 07/04/19 12:22 O2 Sat by Pulse Oximetry 97 07/04/19 12:22 Pain Scale Pain Intensity 4 - Physical Exam General Appearance: no apparent distress, alert Eye Exam: PERRL/EOMI, eyes nml inspection Ears, Nose, Throat Exam: normal ENT inspection, pharynx normal, moist mucous membranes Neck Exam: normal inspection, non-tender, supple, full range of motion Respiratory Exam: normal breath sounds, lungs clear, No respiratory distress Cardiovascular Exam: regular rate/rhythm, normal heart sounds Gastrointestinal/Abdomen Exam: normal bowel sounds, tenderness, rebound (Some rebound left lower quadrant), No mass Back Exam: normal inspection, normal range of motion, No CVA tenderness, No vertebral tenderness Extremity Exam: normal inspection, normal range of motion, pelvis stable Neurologic Exam: alert, oriented x 3, cooperative, normal mood/affect, nml cerebellar function, sensation nml, No motor deficits Skin Exam: normal color, warm, dry SpO2: 98 - CT Exams Abdomen/Pelvis CT Interpretation: Tele-radiologist Report (Teleradiology found acute diverticulitis and findings suggesting early microperforation and a rounded hyperdense 2 cm mass projecting posteriorly and laterally from the superior left kidney which has increased in size since 08/03/2017 concerning for renal malignancy) Ordered Tests: Active Orders 24 hr Category Date Time Status IV Insertion STAT Care 07/04/19 12:38 Active ABDOMEN AND PELVIS W CONTRAST [CT] Stat Exams 07/04/19 12:39 Taken AMYLASE Stat Lab 07/04/19 13:15 Completed CBC W DIFF Stat Lab 07/04/19 13:15 Completed CMP Stat Lab 07/04/19 13:15 Completed LIPASE Stat Lab 07/04/19 13:15 Completed Lactic Acid Stat Lab 07/04/19 13:15 Completed UA W/RFX UR CULTURE Stat Lab 07/04/19 13:55 Completed Medication Summary Generic Name Dose Route Start Last Admin Trade Name Freq PRN Reason Stop Dose Admin Sodium Chloride 1,000 mls @ 100 mls/hr 07/04/19 12:45 07/04/19 13:25 Sodium Chloride 0.9% 1000 Ml IV 08/03/19 12:44 100 mls/hr .Q10H ANTIONETTE Administration Discontinued Medications Generic Name Dose Route Start Last Admin Trade Name Freq PRN Reason Stop Dose Admin Hydromorphone HCl 1 mg 07/04/19 12:38 07/04/19 13:20 Hydromorphone 1 Mg/Ml Ampule IV 07/04/19 12:39 Not Given STAT ONE Ketorolac Tromethamine 30 mg 07/04/19 13:21 07/04/19 13:25 Toradol 30 Mg Injection IV 07/04/19 13:22 30 mg STAT ONE Administration Ketorolac Tromethamine Confirm 07/04/19 13:23 Toradol 30 Mg Injection Administered 07/04/19 13:24 Dose 30 mg .ROUTE .STK-MED ONE Ondansetron HCl 4 mg 07/04/19 12:38 07/04/19 13:25 Zofran 4 Mg/2 Ml Vial IV 07/04/19 12:39 4 mg STAT ONE Administration Ondansetron HCl Confirm 07/04/19 13:23 Zofran 4 Mg/2 Ml Vial Administered 07/04/19 13:24 Dose 4 mg .ROUTE .STK-MED ONE Lab/Rad Data: Laboratory Result Diagrams 07/04/19 13:15 07/04/19 13:15 Laboratory Results 07/04/19 07/04/19 07/04/19 Range/Units 13:55 13:15 13:15 WBC (4.0-10.5) K/mm3 RBC (4.1-5.6) M/mm3 Hgb (12.5-18.0) gm/dl Hct (42-50) % MCV (78-100) fl MCH (26-32) pg MCHC (32-36) g/dl RDW (11.5-14.0) % Plt Count (150-450) K/mm3 MPV (7.5-11.0) fl Gran % (36.0-66.0) % Eos # (Auto) (0-0.5) Absolute Lymphs (auto) (1.0-4.6) Absolute Monos (auto) (0.0-1.3) Lymphocytes % (24.0-44.0) % Monocytes % (0.0-12.0) % Eosinophils % (0.00-5.0) % Basophils % (0.0-0.4) % Absolute Granulocytes (1.4-6.9) Basophils # (0-0.4) Sodium 139 (137-145) mmol/L Potassium 3.9 (3.5-5.1) mmol/L Chloride 104 (98-107) mmol/L Carbon Dioxide 28 (22-30) mmol/L Anion Gap 10.3 (5-15) MEQ/L BUN 14 (9-20) mg/dL Creatinine 0.98 (0.66-1.25) mg/dL Estimated GFR > 60.0 ML/MIN Glucose 113 H (74-106) mg/dL Lactic Acid 0.9 (0.4-2.0) Calcium 9.3 (8.4-10.2) mg/dL Total Bilirubin 0.60 (0.2-1.3) mg/dL AST 23 (17-59) U/L ALT 18 (0-50) U/L Alkaline Phosphatase 48 (38-126) U/L Serum Total Protein 8.1 (6.3-8.2) g/dL Albumin 4.2 (3.5-5.0) g/dL Amylase 58 (30-110) U/L Lipase 52 (23-300) U/L Urine Color YELLOW (YELLOW) Urine Appearance CLEAR (CLEAR) Urine pH 7.0 (5-6) Ur Specific [place] 1.020 (1.005-1.025) Urine Protein NEGATIVE (Negative) Urine Ketones NEGATIVE (NEGATIVE) Urine Blood NEGATIVE (0-5) Rambo/ul Urine Nitrite NEGATIVE (NEGATIVE) Urine Bilirubin NEGATIVE (NEGATIVE) Urine Urobilinogen 2 (0-1) mg/dL Ur Leukocyte Esterase NEGATIVE (NEGATIVE) Urine WBC (Auto) NONE (0-5) /HPF Urine RBC (Auto) NONE (0-2) /HPF U Epithel Cells (Auto) NONE (FEW) /HPF Urine Bacteria (Auto) NONE (NEGATIVE) /HPF Urine Mucus (Auto) SLIGHT (NEGATIVE) /HPF Urine Culture Reflexed NO (NO) Urine Glucose NEGATIVE (NEGATIVE) mg/dL 07/04/19 Range/Units 13:15 WBC 15.7 H (4.0-10.5) K/mm3 RBC 5.06 (4.1-5.6) M/mm3 Hgb 14.5 (12.5-18.0) gm/dl Hct 44.6 (42-50) % MCV 88.1 (78-100) fl MCH 28.7 (26-32) pg MCHC 32.5 (32-36) g/dl RDW 15.0 H (11.5-14.0) % Plt Count 249 (150-450) K/mm3 MPV 11.7 H (7.5-11.0) fl Gran % 76.1 H (36.0-66.0) % Eos # (Auto) 0.11 (0-0.5) Absolute Lymphs (auto) 2.52 (1.0-4.6) Absolute Monos (auto) 1.08 (0.0-1.3) Lymphocytes % 16.1 L (24.0-44.0) % Monocytes % 6.9 (0.0-12.0) % Eosinophils % 0.7 (0.00-5.0) % Basophils % 0.2 (0.0-0.4) % Absolute Granulocytes 11.93 H (1.4-6.9) Basophils # 0.03 (0-0.4) Sodium (137-145) mmol/L Potassium (3.5-5.1) mmol/L Chloride (98-107) mmol/L Carbon Dioxide (22-30) mmol/L Anion Gap (5-15) MEQ/L BUN (9-20) mg/dL Creatinine (0.66-1.25) mg/dL Estimated GFR ML/MIN Glucose (74-106) mg/dL Lactic Acid (0.4-2.0) Calcium (8.4-10.2) mg/dL Total Bilirubin (0.2-1.3) mg/dL AST (17-59) U/L ALT (0-50) U/L Alkaline Phosphatase (38-126) U/L Serum Total Protein (6.3-8.2) g/dL Albumin (3.5-5.0) g/dL Amylase (30-110) U/L Lipase (23-300) U/L Urine Color (YELLOW) Urine Appearance (CLEAR) Urine pH (5-6) Ur Specific [place] (1.005-1.025) Urine Protein (Negative) Urine Ketones (NEGATIVE) Urine Blood (0-5) Rambo/ul Urine Nitrite (NEGATIVE) Urine Bilirubin (NEGATIVE) Urine Urobilinogen (0-1) mg/dL Ur Leukocyte Esterase (NEGATIVE) Urine WBC (Auto) (0-5) /HPF Urine RBC (Auto) (0-2) /HPF U Epithel Cells (Auto) (FEW) /HPF Urine Bacteria (Auto) (NEGATIVE) /HPF Urine Mucus (Auto) (NEGATIVE) /HPF Urine Culture Reflexed (NO) Urine Glucose (NEGATIVE) mg/dL - Progress Progress: unchanged Discussed with DrBella: Kevin - Departure Departure Disposition: Home Clinical Impression: Diverticulitis, Renal mass Condition: Fair Critical Care Time: No Referrals: JEREMIAH MARTIN MD [Primary Care Provider] -
[2019-07-04] MEDS ORDERED: SUBLIMAZE 100 MCG/2 ML IV PRN ×2 (15:24→16:34)
[2019-07-04] MEDS ORDERED: D5w 100ML Mini Bag 100 ML 100 ML IV ONE ×2 (17:29→17:30)
[2019-07-04] MEDS ORDERED: Zosyn INJ IV ONE ×2 (17:29→17:30)
[2019-07-04] MEDS: FLAGYL 500 MG IVPB 500 MG/100 ML BAG IV SCH (17:59)
[2019-07-04] MEDS ORDERED: HUMALOG SQ PRN (18:00)
[2019-07-04] MEDS ORDERED: PROTONIX 40 MG IV IV SCH (18:00)
--- NOTE | 2019-07-04 20:37 | XRAY ---
Indication: Abdomen pain. History diverticulitis. Multiple contiguous axial images obtained through the abdomen and pelvis using 80 cc Isovue-370 contrast only. Comparison: July 28, 2017 Lung bases demonstrates stable left lower lobe calcified granulomas. No infiltrate or effusion. Heart is not enlarged. Noncontrasted stomach and bowel loops appear nonobstructed. Normal appendix. Again mild scattered colonic diverticulosis. Mid to proximal sigmoid colon demonstrates bowel wall thickening with pericolonic stranding favoring diverticulitis. No free fluid/air. 3.3 cm left mid renal cyst, previously 2.4 cm. Remaining liver, gallbladder, pancreas, spleen, adrenal glands, kidneys, ureters, and bladder appear unremarkable. Mild scattered aortoiliac calcifications. No AAA or pathological retroperitoneal lymphadenopathy. Osseous structures intact. Impression: 1. Scattered colonic diverticulosis with acute sigmoid diverticulitis. No complications. 2. Enlarging left renal cyst. Comment: Preliminary interpretation was made by [facility]. No critical discrepancy.
[2019-07-04] MEDS ORDERED: Zosyn INJ 4.5 GM in D5w 100ML Mini Bag 100 ML 100 ML IV SCH (22:00)
[2019-07-04] MEDS: Zosyn INJ 4.5 GM in D5w 100ML Mini Bag 100 ML 100 ML IV SCH (22:12)
[2019-07-05] MEDS: FLAGYL 500 MG IVPB 500 MG/100 ML BAG IV SCH ×2 (01:47→06:22)
[2019-07-05] MEDS: Zosyn INJ 4.5 GM in D5w 100ML Mini Bag 100 ML 100 ML IV SCH (06:27)
[2019-07-05 06:45] VITALS: BP 160/85; PULSE 69; O2SAT 95
--- NOTE | 2019-07-12 11:23 | HP ---
CHIEF COMPLAINT: History of diverticulitis and diverticulitis flare up. HISTORY OF PRESENT ILLNESS: The patient is a 43 year-old white male who presented to the emergency room with the above complaints. A CT scan showed him to have a microperforation and the emergency room doctor began him on IV antibiotics and the patient was admitted to the hospital. However, the patient later within a couple of hours of his admission demanded to be released. He signed out AMA before I got a chance to see him. Despite our insistence from the nurses by my instructions that he could end up with a colostomy bag due to perforation if he continued to eat and to be at gut rest. His reason for leaving is he reported that his daughter was going to be induced at [facility] and he wanted to be there for that. Despite the severity of his illness, the patient signed out AMA.
== END 2019-07-05 10:40 | disposition left against medical advice (07) ==
LOC: ED 12:15 → MED SURG 16:30
PROVIDERS: ADMIT Family Medicine; ATTEND General Practice
DX: K57.32 Diverticulitis of large intestine without perforation or abscess without bleeding (principal); E11.9 Type 2 diabetes mellitus without complications; I10 Essential (primary) hypertension; Z79.899 Other long term (current) drug therapy
CPT/HCPCS: 36000; 36415; 74177; 80053; 81001; 82150; 82962; 83036; 83605; 83690; 85025; 96374; 96375; 99285; G0378; J1885; J2405; J2543

== ENCOUNTER 2019-07-14 08:38 | Day surgery (SDC) | payer OTHER ==
[2019-07-14] MEDS ORDERED: Xylocaine 1% Vial 30 ML PF IJ ONE (08:39)
[2019-07-14] MEDS ORDERED: Marcaine 0.5% SDV 10 ML IM ONE (08:39)
[2019-07-14] MEDS ORDERED: DIPRIVAN 200 MG/20 ML IV ONE (10:02)
[2019-07-14] MEDS ORDERED: Ketamine HCl 50 MG/ML ONE (10:02)
--- NOTE | 2019-07-14 10:42 | XRAY ---
Indication: Left lumbar sympathetic nerve block. Intraoperative fluoroscopy was provided for 41 seconds. 4 digital spot images submitted for interpretation demonstrates left posterior needle tip projecting just anterior to the L2 and L3 vertebral bodies. Small amount of contrast injected for needle tip placement. Correlate with intraoperative findings/report.
[2019-07-14] MEDS ORDERED: Lactated Ringers 1,000 ML IV ONE (11:47)
--- NOTE | 2019-07-14 11:56 | XRAY ---
41 seconds fluoroscopy time in surgery for left lumbar sympathetic nerve block.
== END 2019-07-14 10:50 | disposition home or self-care (01) ==
LOC: SDC-PAIN 08:38
PROVIDERS: ATTEND Psychiatry & Neurology Pain Medicine
DX: G90.522 Complex regional pain syndrome I of left lower limb (principal); E11.9 Type 2 diabetes mellitus without complications; I10 Essential (primary) hypertension; K21.9 Gastro-esophageal reflux disease without esophagitis; Z79.899 Other long term (current) drug therapy
CPT/HCPCS: 64520; 72100; 77002; 82962; J2001; J2704; Q9966

== ENCOUNTER 2019-10-11 08:09 | Day surgery (SDC) | payer OTHER ==
--- NOTE | 2019-10-11 08:14 | HP ---
AMENDED REPORT: DATE OF SURGERY: 10/11/2019 HISTORY OF PRESENT ILLNESS: The patient is a 43 year old with history of diverticulitis attack seven or eight times over past year. With history of diverticular disease will need colonoscopy prior to considering possible consideration of resection. PAST MEDICAL HISTORY: Diabetes. Hypertension. Reflux. PAST SURGICAL HISTORY: Plate and screws in the left foot in the past. MEDICATIONS: Metformin. Lisinopril. Nexium. [place]. ALLERGIES: NKDA. FAMILY HISTORY: Negative in regards to this problem. SOCIAL HISTORY: Denies alcohol abuse. REVIEW OF SYSTEMS: Fourteen systems reviewed per admission assessment. No chest pain or palpitations. Onset of the attacks over the past two years. PHYSICAL EXAMINATION: GENERAL: No acute distress. HEENT: Sclerae nonicteric. NECK: No JVD. CHEST: Equal excursion, nonlabored breathing. CVS: Regular rate and rhythm. ABDOMEN: Soft. No peritoneal signs. EXTREMITIES: No significant edema. NEURO: Alert, oriented, moving extremities symmetrically. No gross motor deficits noted. RECTAL: Deferred timed to endoscopy exam. IMPRESSION: History of chronic diverticulitis. He is in need of colonoscopy for further evaluation for possible surgical resection. General risk of colonoscopy including but not limited to bleeding or infection, risk of bowel injury or perforation possibly requiring open procedure, risk of missed or nondiagnosis or incomplete exam possibly requiring barium enema, other studies or procedures, general risk of anesthesia or sedation, risk of bowel prep but not limited to, risk of perforation possibly requiring open procedure, general risk of sedation but not limited to. He understands and agrees to the planned procedure, will proceed with outpatient colonoscopy under MAC anesthesia.
[2019-10-11] MEDS ORDERED: Lactated Ringers 1,000 ML IV SCH (08:30)
[2019-10-11] MEDS ORDERED: Lactated Ringers 1,000 ML IV ONE (08:34)
[2019-10-11] MEDS ORDERED: DIPRIVAN 200 MG/20 ML IV ONE ×2 (10:45→11:02)
[2019-10-11] MEDS ORDERED: Ketamine HCl 50 MG/ML ONE (10:45)
[2019-10-11 12:00] VITALS: BP 134/96; PULSE 73; O2SAT 98
--- NOTE | 2019-10-11 12:07 | OP ---
SURGERY DATE/TIME: 10/11/2019 1049 PREOPERATIVE DIAGNOSES: 1) Recurrent abdominal pain. 2) History of diverticulitis. POSTOPERATIVE DIAGNOSES: 1) Fair bowel prep. 2) ASA class III. 3) Rectosigmoid colon polyp. 4) Moderate diverticulosis. 5) Patchy area of inflammation versus prep irritation sigmoid colon. Withdrawal time 14 minutes. PROCEDURES: 1) Colonoscopy to terminal ileum. 2) Retrograde ileoscopy. 3) Hot biopsy removal of small raised lesion early polyp rectosigmoid with hot snare polypectomy adjacent rectosigmoid polyp. 4) Cold biopsy patchy area of inflammation sigmoid colon. SURGEON: Dr. Norris Palmer. ANESTHESIA: MAC. ESTIMATED BLOOD LOSS: Minimal. INDICATIONS: As noted above. Risks and benefits explained in detail but not limited to and consent obtained. DESCRIPTION OF PROCEDURE AND FINDINGS: The patient is taken to the endoscopy suite. MAC anesthesia introduced. After official time out and no disagreement with planned procedure, digital rectal exam did not reveal any rectal masses. He did have some small internal hemorrhoids. Video colonoscope inserted and passed up through the tortuous sigmoid, descending, transverse and ascending colon around the cecum up to the terminal ileum. Retrograde ileoscopy was performed which was grossly unremarkable. The scope is carefully withdrawn over the next 14 minutes. Prep overall was only fair with areas of liquidy semisolid stool suctioned irrigated as clear as possible just slightly limiting the exam for very tiny lesions. Scope slowly and carefully withdrawn. There were no signs of any large polyps, masses or obstructing lesions. He did have diverticulosis in the left colon, moderate to severe diverticulosis in the left colon. He had some patchy area of erythema whether this is just some prep irritation versus some mild colitis. Cold biopsy is taken. Good hemostasis noted. There was a 4 mm polyp in the rectosigmoid area removed with hot snare polypectomy brief bursts of cautery. Another couple of small, 2 mm adjacent raised lesions versus early polyps removed with hot biopsy forceps. Good hemostasis noted. Otherwise he had some small internal hemorrhoids. There were no signs of any large polyps, masses or obstructing lesions. Prep overall was fair. ASA class was III. He appeared to have some sleep apnea. Withdrawal time 14 minutes including all of the biopsies and polypectomy.
== END 2019-10-11 12:03 | disposition home or self-care (01) ==
LOC: SDC 08:09
PROVIDERS: ATTEND Surgery
DX: K57.30 Diverticulosis of large intestine without perforation or abscess without bleeding (principal); K63.5 Polyp of colon; K64.8 Other hemorrhoids; E11.9 Type 2 diabetes mellitus without complications; I10 Essential (primary) hypertension; Z79.899 Other long term (current) drug therapy
CPT/HCPCS: 82962; 88305; J2704

== ENCOUNTER 2019-10-13 07:42 | Day surgery (SDC) | payer OTHER ==
[2019-10-13] MEDS ORDERED: Xylocaine 1% Vial 30 ML PF IJ ONE (07:43)
[2019-10-13] MEDS ORDERED: Sensorcaine 0.25% 10 ML IJ ONE (07:43)
[2019-10-13] MEDS ORDERED: DIPRIVAN 200 MG/20 ML IV ONE (09:51)
[2019-10-13] MEDS ORDERED: Ketamine HCl 50 MG/ML ONE (09:51)
--- NOTE | 2019-10-13 12:26 | XRAY ---
Indication: Left lumbar sympathetic nerve block. Intraoperative fluoroscopy was provided for 24 seconds. 3 digital spot images submitted for interpretation demonstrates left posterior needle tip projecting just anterior to a mid lumbar segment, probably L3. Small amount of contrast injected for needle tip placement. Correlate with intraoperative findings/report.
--- NOTE | 2019-10-13 14:26 | XRAY ---
24 seconds of fluoroscopy was used in surgery for a left lumbar sympathetic nerve block.
[2019-10-13] MEDS ORDERED: Lactated Ringers 1,000 ML IV ONE (14:52)
== END 2019-10-13 10:12 | disposition home or self-care (01) ==
LOC: SDC-PAIN 07:42
PROVIDERS: ATTEND Psychiatry & Neurology Pain Medicine
DX: G90.522 Complex regional pain syndrome I of left lower limb (principal); E11.9 Type 2 diabetes mellitus without complications; I10 Essential (primary) hypertension; K21.9 Gastro-esophageal reflux disease without esophagitis; K57.92 Diverticulitis of intestine, part unspecified, without perforation or abscess without bleeding; Z79.899 Other long term (current) drug therapy
CPT/HCPCS: 64520; 72100; 77002; 82962; J2001; J2704; Q9966

== ENCOUNTER 2020-02-26 14:25 | Emergency (ER) | payer OTHER ==
[2020-02-26] MEDS ORDERED: Sodium Chloride 0.9% 1000 ML 1,000 ML IV STA (14:33)
[2020-02-26] MEDS ORDERED: BENADRYL 50 MG/ML IV ONE (14:33)
[2020-02-26] MEDS ORDERED: Zofran 4 MG/2 ML VIAL IV ONE (14:33)
[2020-02-26] MEDS ORDERED: TYLENOL EXTRA STRENGTH 500 MG PO STA (14:34)
[2020-02-26] MEDS ORDERED: ANTIVERT 25 MG PO ONE (14:34)
[2020-02-26] MEDS ORDERED: ANTIVERT 25 MG ONE (14:43)
[2020-02-26] MEDS ORDERED: BENADRYL 50 MG/ML ONE (14:43)
[2020-02-26] MEDS ORDERED: TYLENOL EXTRA STRENGTH 500 MG ONE ×2 (14:43→14:48)
[2020-02-26] MEDS ORDERED: Zofran 4 MG/2 ML VIAL ONE (14:43)
[2020-02-26] MEDS ORDERED: Sodium Chloride 0.9% 1000 ML 1,000 ML ONE (14:44)
[2020-02-26 14:46] LABS: Absolute Neutrophil Ct (ANC) 7.05 (1.4-6.9); BASOPHIL % 0.4 % (0.0-0.4); Basophil (Absolute #) 0.04 (0-0.4); Eosinophil % 1.4 % (0.00-5.0); Eosinophil (Absolute #) 0.15 (0-0.5); Hematocrit 44.9 % (42-50); Hemoglobin 14.5 gm/dl (12.5-18.0); Lymphocyte (Absolute #) 2.76 (1.0-4.6); Lymphocytes % 25.6 % (24.0-44.0); Mean Cell Volume 88.6 fl (78-100); Mean Corpuscular Hemoglobin 28.6 pg (26-32); Mean Corpuscular Hgb Concent. 32.3 g/dl (32-36); Mean Platelet Volume 11.9 fl (7.5-11.0); Monocytes % 7.4 % (0.0-12.0); Neutrophil % 65.2 % (36.0-66.0); Platelet Count 291 K/mm3 (150-450); Red Blood Count 5.07 M/mm3 (4.1-5.6); Red Cell Distribution Width 14.8 % (11.5-14.0); White Blood Count 10.8 K/mm3 (4.0-10.5)
[2020-02-26 14:57] LABS: ALBUMIN 4.4 g/dL (3.5-5.0); ALKALINE PHOSPHATASE 54 U/L (38-126); ANION GAP 12.9 MEQ/L (5-15); BLOOD UREA NITROGEN 13 mg/dL (9-20); CHLORIDE 105 mmol/L (98-107); Calcium 9.4 mg/dL (8.4-10.2); Carbon Dioxide 22 mmol/L (22-30); Creatinine 1 1.05 mg/dL (0.66-1.25); EST GLOMERULAR FILTRATION RATE > 60.0 ML/MIN; Glucose 159 mg/dL (74-106); Potassium 3.7 mmol/L (3.5-5.1); SGOT/AST 24 U/L (17-59); SGPT/ALT 27 U/L (0-50); SODIUM 136 mmol/L (137-145); Total Protein 7.8 g/dL (6.3-8.2)
[2020-02-26 15:07] LABS: NT PRO BNP 22.3 pg/mL (0-450)
--- NOTE | 2020-02-26 15:07 | ERPHSYRPT ---
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 states he was outside, came inside to kitchen d/t feeling like he was going to vomit and passed out in kitchen. "only way I can explain it is that I fell like i was upside down." denies CP or SOB. lungs and heart sounds clear. skin is pale, w arm, and diaphoretic. diabetic, fsbs in route WNL. Physician History: Patient states he had an episode of syncope today. States that he was outside shooting a BB gun. He walked in. He had sudden onset of vertigo, dizziness. He then passed out. He felt diaphoretic. He no preceding chest pain, shortness of breath, episode of vomiting. He does have nausea right now. However, he did not vomit at the time. States that his dizziness has mostly resolved although he still feels some feelings of vertigo. Continues to deny any chest pain or shortness of breath. Timing/Duration: today Severity: moderate Modifying Factors: Improves With: nothing Associated Symptoms: nausea, No abdominal pain, No headaches, No loss of appetite Allergies/Adverse Reactions: No Known Drug Allergies Allergy (Unverified 02/26/20 14:46) Home Medications: Esomeprazole Magnesium [Nexium] 20 mg PO DAILY 02/26/20 [History] Hydrocodone Bit/Acetaminophen [[place] 10-325 Tablet] 10 mg PO TID 02/26/20 [History] Lisinopril 40 mg PO DAILY 02/26/20 [History] Metformin HCl 500 mg PO DAILY 02/26/20 [History] Hx Tetanus, Diphtheria Vaccination/Date Given: Yes Hx Influenza Vaccination/Date Given: No Hx Pneumococcal Vaccination/Date Given: No Immunizations Up to Date: No Travel Risk - International Travel Have you traveled outside of the country in past 3 weeks: No - Coronavirus Screening Are you exhibiting any of the following symptoms?: No Close contact with a COVID-19 positive Pt in past 14-21 Days: No - Review of Systems Constitutional: No Fever, No Chills Eyes: No Symptoms Ears, Nose, & Throat: No Symptoms Respiratory: No Cough, No Dyspnea Cardiac: Syncope, Other (Diaphoresis), No Chest Pain, No Edema Abdominal/Gastrointestinal: No Abdominal Pain, No Nausea, No Vomiting, No Diarrhea Genitourinary Symptoms: No Dysuria Musculoskeletal: No Back Pain, No Neck Pain Skin: No Rash Neurological: No Dizziness, No Focal Weakness, No Sensory Changes Psychological: No Symptoms Endocrine: No Symptoms All Other Systems: Reviewed and Negative - Past Medical History Pertinent Past Medical History: Yes Cardiac History: Hypertension Respiratory History: COPD Endocrine Medical History: Diabetes Type II GI Medical History: Diverticulitis - Past Surgical History Past Surgical History: Yes Gastrointestinal: Other Musculoskeletal: Orthopedic Surgery Other Surgical History: L foot, partial intestine removed, - Social History Smoking Status: Current every day smoker How long have you smoked: years Exposure to second hand smoke: No Drug Use: none Patient Lives Alone: No - Nursing Vital Signs Nursing Vital Signs: Initial Vital Signs Pulse Rate 76 02/26/20 14:30 Respiratory Rate 25 H 02/26/20 14:30 Blood Pressure 117/60 02/26/20 14:30 O2 Sat by Pulse Oximetry 96 02/26/20 14:30 Pain Scale Pain Intensity 0 - Physical Exam General Appearance: no apparent distress, alert Eye Exam: PERRL/EOMI, eyes nml inspection Ears, Nose, Throat Exam: normal ENT inspection, TMs normal, pharynx normal, moist mucous membranes Neck Exam: normal inspection, non-tender, supple, full range of motion Respiratory Exam: normal breath sounds, lungs clear, No respiratory distress Cardiovascular Exam: regular rate/rhythm, normal heart sounds, normal peripheral pulses Gastrointestinal/Abdomen Exam: soft, normal bowel sounds, No tenderness, No mass Back Exam: normal inspection, normal range of motion, No CVA tenderness, No vertebral tenderness Extremity Exam: normal inspection, normal range of motion, pelvis stable Neurologic Exam: alert, oriented x 3, cooperative, normal mood/affect, nml cerebellar function, nml station & gait, sensation nml, No motor deficits Skin Exam: normal color, warm, dry, No rash Lymphatic Exam: No adenopathy SpO2 Interpretation: normal SpO2: 96 Comments: 02/26/20 15:08 No trismus, able to fully extend neck, normal range of motion of neck without pain. Uvula is midline, no swelling of the mouth, noraml oropharynx. No exudate, no signs of meningitis, no floor of mouth swelling, no hot potato voice on exam. No buccal swelling, no gum bleeding, no signs of tooth abscess/infection. No obvious deformity, sensation intact, 2+ capillary refill, 2 point tactile discrimination intact. 5 out of 5 strength. Full range of motion without pain. Compartments are soft, nontender. Overlying skin shows no tenting, bruising, ecchymosis. Motor: There is no pronator drift of out-stretched arms. Muscle bulk and tone are normal. Strength is full bilaterally. Reflexes: Reflexes are 2+ and symmetric at the biceps, triceps, knees, and ank les. Plantar responses are flexor. Sensory: Light touch sense are intact in bilateral upper and lower extremities. There is no sign of neglect. Coordination: Rapid alternating movements are intact. There is no dysmetria on [id number] and [id number]. There are no abnormal or extraneous movements. Romberg is absent. Gait/Stance: Posture is normal. Gait is steady with normal steps, base, arm swing, and turning. Heel and toe walking are normal. Tandem gait is normal. - Course Nursing assessment & vital signs reviewed: Yes EKG Interpreted by Me: RATE, Sinus Rhythm Ordered Tests: Active Orders 24 hr Category Date Time Status Burning Supervisor STAT Care 02/26/20 14:33 Active EKG-ER Only STAT Care 02/26/20 14:33 Active IV Insertion STAT Care 02/26/20 14:33 Active CHEST 2 VIEWS (PA AND LAT) Stat Exams 02/26/20 14:33 Taken HEAD WITHOUT CONTRAST [CT] Stat Exams 02/26/20 14:35 Taken CBC W DIFF Stat Lab 02/26/20 14:33 Completed CMP Stat Lab 02/26/20 14:46 Completed D-DIMER QUANTITATIVE Stat Lab 02/26/20 14:46 Completed NT PRO BNP Stat Lab 02/26/20 14:46 Completed POCT GLUCOSE Stat Lab 02/26/20 14:41 Completed TROPONIN Q3H Lab 02/26/20 14:46 Completed TROPONIN Q3H Lab 02/26/20 17:13 Completed TROPONIN Q3H Lab 02/26/20 20:45 Ordered TROPONIN Q3H Lab 02/26/20 23:45 Ordered TROPONIN Q3H Lab 02/27/20 01:45 Ordered Medication Summary Discontinued Medications Generic Name Dose Route Start Last Admin Trade Name Freq PRN Reason Stop Dose Admin Acetaminophen 1,000 mg 02/26/20 14:34 02/26/20 14:47 Tylenol Extra Strength 500 Mg PO 02/26/20 14:35 1,000 mg STAT STA Administration Acetaminophen Confirm 02/26/20 14:43 Tylenol Extra Strength 500 Mg Administered 02/26/20 14:44 Dose 500 mg .ROUTE .STK-MED ONE Acetaminophen Confirm 02/26/20 14:48 Tylenol Extra Strength 500 Mg Administered 02/26/20 14:49 Dose 500 mg .ROUTE .STK-MED ONE Diphenhydramine HCl 25 mg 02/26/20 14:33 02/26/20 14:47 Benadryl 50 Mg/Ml IV 02/26/20 14:34 25 mg STAT ONE Administration Diphenhydramine HCl Confirm 02/26/20 14:43 Benadryl 50 Mg/Ml Administered 02/26/20 14:44 Dose 50 mg .ROUTE .STK-MED ONE Sodium Chloride 1,000 mls @ 999 mls/hr 02/26/20 14:33 02/26/20 16:40 Sodium Chloride 0.9% 1000 Ml IV 02/26/20 15:33 Infused .Q1H1M STA Infusion Sodium Chloride Confirm 02/26/20 14:44 Sodium Chloride 0.9% 1000 Ml Administered 02/26/20 14:45 Dose 1,000 mls @ ud .ROUTE .STK-MED ONE Meclizine HCl 25 mg 02/26/20 14:34 02/26/20 14:49 Antivert 25 Mg PO 02/26/20 14:35 25 mg STAT ONE Administration Meclizine HCl Confirm 02/26/20 14:43 Antivert 25 Mg Administered 02/26/20 14:44 Dose 25 mg .ROUTE .STK-MED ONE Ondansetron HCl 8 mg 02/26/20 14:33 02/26/20 14:47 Zofran 4 Mg/2 Ml Vial IV 02/26/20 14:34 8 mg STAT ONE Administration Ondansetron HCl Confirm 02/26/20 14:43 Zofran 4 Mg/2 Ml Vial Administered 02/26/20 14:44 Dose 8 mg .ROUTE .STK-MED ONE Lab/Rad Data: Laboratory Result Diagrams 02/26/20 14:33 02/26/20 14:46 Laboratory Results 02/26/20 02/26/20 02/26/20 Range/Units 17:13 14:46 14:46 WBC (4.0-10.5) K/mm3 RBC (4.1-5.6) M/mm3 Hgb (12.5-18.0) gm/dl Hct (42-50) % MCV (78-100) fl MCH (26-32) pg MCHC (32-36) g/dl RDW (11.5-14.0) % Plt Count (150-450) K/mm3 MPV (7.5-11.0) fl Gran % (36.0-66.0) % Eos # (Auto) (0-0.5) Absolute Lymphs (auto) (1.0-4.6) Absolute Monos (auto) (0.0-1.3) Lymphocytes % (24.0-44.0) % Monocytes % (0.0-12.0) % Eosinophils % (0.00-5.0) % Basophils % (0.0-0.4) % Absolute Granulocytes (1.4-6.9) Basophils # (0-0.4) D-Dimer 441 (215-500) ng/mL Sodium (137-145) mmol/L Potassium (3.5-5.1) mmol/L Chloride (98-107) mmol/L Carbon Dioxide (22-30) mmol/L Anion Gap (5-15) MEQ/L BUN (9-20) mg/dL Creatinine (0.66-1.25) mg/dL Estimated GFR ML/MIN Glucose (74-106) mg/dL POC Glucometer (74 to 106) mg/dL Calcium (8.4-10.2) mg/dL Total Bilirubin (0.2-1.3) mg/dL AST (17-59) U/L ALT (0-50) U/L Alkaline Phosphatase (38-126) U/L Troponin I < 0.012 < 0.012 (0.000-0.034) ng/mL NT-Pro-B Natriuret Pep (0-450) pg/mL Serum Total Protein (6.3-8.2) g/dL Albumin (3.5-5.0) g/dL 1002/26/20 02/26/20 Range/Units 14:46 14:41 14:33 WBC 10.8 H (4.0-10.5) K/mm3 RBC 5.07 (4.1-5.6) M/mm3 Hgb 14.5 (12.5-18.0) gm/dl Hct 44.9 (42-50) % MCV 88.6 (78-100) fl MCH 28.6 (26-32) pg MCHC 32.3 (32-36) g/dl RDW 14.8 H (11.5-14.0) % Plt Count 291 (150-450) K/mm3 MPV 11.9 H (7.5-11.0) fl Gran % 65.2 (36.0-66.0) % Eos # (Auto) 0.15 (0-0.5) Absolute Lymphs (auto) 2.76 (1.0-4.6) Absolute Monos (auto) 0.80 (0.0-1.3) Lymphocytes % 25.6 (24.0-44.0) % Monocytes % 7.4 (0.0-12.0) % Eosinophils % 1.4 (0.00-5.0) % Basophils % 0.4 (0.0-0.4) % Absolute Granulocytes 7.05 H (1.4-6.9) Basophils # 0.04 (0-0.4) D-Dimer (215-500) ng/mL Sodium 136 L (137-145) mmol/L Potassium 3.7 (3.5-5.1) mmol/L Chloride 105 (98-107) mmol/L Carbon Dioxide 22 (22-30) mmol/L Anion Gap 12.9 (5-15) MEQ/L BUN 13 (9-20) mg/dL Creatinine 1.05 (0.66-1.25) mg/dL Estimated GFR > 60.0 ML/MIN Glucose 159 H (74-106) mg/dL POC Glucometer 152 H (74 to 106) mg/dL Calcium 9.4 (8.4-10.2) mg/dL Total Bilirubin 0.30 (0.2-1.3) mg/dL AST 24 (17-59) U/L ALT 27 (0-50) U/L Alkaline Phosphatase 54 (38-126) U/L Troponin I (0.000-0.034) ng/mL NT-Pro-B Natriuret Pep 22.3 (0-450) pg/mL Serum Total Protein 7.8 (6.3-8.2) g/dL Albumin 4.4 (3.5-5.0) g/dL - Progress Progress Note: 02/26/20 15:09 Differential diagnosis includes pulmonary embolism, infection, pneumonia, STEMI, head bleed, vertigo, vasovagal syncope - We'll obtain basic labs, fluids, EKG, troponin, chest x-ray - EKG shows no ST changes - my read. See full read below. - O2 saturations consistently greater than 95%. - CXR shows no pneumonia, pneumothorax - my read - no other obvious lab abnormalities 02/26/20 18:[address] was negative for any obvious head bleed, other cause of syncope or trauma. Patient first troponin was negative. I did feel that we need to repeat a second troponin given his risk factors. Patient is a diabetic, elevated BMI, smoker. Therefore, 2 consecutive troponins were ordered in the emergency department. These both returned negative. Throughout his hospital observation he had no further episodes of syncope, chest pain, shortness of breath, diaphoresis. At this point time he is high risk ago. Therefore, I recommend close follow-up with his PCP and eventual cardiac testing. He should return here for any new or changing symptoms. He states his understanding will follow- up as described. Plan of care was discussed with patient and patient's family: all questions answered. They are agreeable to be discharged home and both verbal and printed discharge instructi ons were provided. The patient and patient's family agreed to seek outpatient follow up as discussed. They were given strict instructions to return to the emergency department for worsening symptoms or any other emergent concerns. They verbalized understanding. - Departure Departure Disposition: Home Clinical Impression: Syncope Condition: Stable Critical Care Time: No Critical Care Time(excluding separately billable procedures): Critical 30-74 mins Referrals: JEREMIAH MARTIN MD [Primary Care Provider] - Instructions: Syncope (Fainting) (DC) Additional Instructions: See PCP for reexam in 24 hours. Return here for new or changing symptoms.
[2020-02-26 17:06] VITALS: BP 136/79
[2020-02-26 18:03] VITALS: PULSE 61
[2020-02-26 18:13] VITALS: O2SAT 96
--- NOTE | 2020-02-26 20:06 | XRAY ---
Indication: Syncope. Comparison: None PA/lateral chest demonstrates normal heart and lungs. Bony thorax intact.
--- NOTE | 2020-02-26 20:08 | XRAY ---
Indication: Frontal head and nose injury following syncopal episode. Multiple contiguous axial images obtained through the head without contrast. Comparison: None Normal appearing brain parenchyma, ventricles, and bony calvarium. There is moderate mucosal thickening of both ethmoid sinuses. Mastoid air cells are clear. Impression: Normal CT head without contrast exam. Incidental paranasal sinus disease. Comment: Preliminary interpretation was made by [facility]. No critical discrepancy.
== END 2020-02-26 18:12 | disposition home or self-care (01) ==
LOC: ED 14:25 → MERGE 14:25 → ED 18:12
DX: R55 Syncope and collapse (principal); E11.9 Type 2 diabetes mellitus without complications; I10 Essential (primary) hypertension; J44.9 Chronic obstructive pulmonary disease, unspecified
CPT/HCPCS: 36000; 36415; 70450; 71046; 80053; 82947; 83880; 84484; 85025; 85379; 93005; 93041; 96360; 96374; 96375; 99285; 99291; J1200; J2405; A9270-GY

== ENCOUNTER 2020-03-29 08:00 | Day surgery (SDC) | payer OTHER ==
[2020-03-29] MEDS ORDERED: DIPRIVAN 200 MG/20 ML IV ONE (10:04)
[2020-03-29] MEDS ORDERED: Ketamine HCl 50 MG/ML ONE (10:04)
--- NOTE | 2020-03-29 12:23 | XRAY ---
Indication: Left sympathetic nerve block. Intraoperative fluoroscopy was provided for 24 seconds. 3 digital spot images submitted for interpretation demonstrates left posterior needle tip projecting just anterior to a mid lumbar segment, probably L3. Small amount of contrast injected for needle tip placement. Correlate with intraoperative findings/report.
--- NOTE | 2020-03-29 12:28 | XRAY ---
47 seconds fluoroscopy time in surgery for left sympathetic nerve block.
[2020-03-29] MEDS ORDERED: Lactated Ringers 1,000 ML IV ONE (16:06)
== END 2020-03-29 10:38 | disposition home or self-care (01) ==
LOC: SDC-PAIN 08:00
PROVIDERS: ATTEND Psychiatry & Neurology Pain Medicine
DX: G90.50 Complex regional pain syndrome I, unspecified (principal); E11.9 Type 2 diabetes mellitus without complications; I10 Essential (primary) hypertension; K57.92 Diverticulitis of intestine, part unspecified, without perforation or abscess without bleeding; G47.30 Sleep apnea, unspecified; K21.9 Gastro-esophageal reflux disease without esophagitis; Z79.899 Other long term (current) drug therapy
CPT/HCPCS: 64520; 72100; 77002; 82947; 82962; J2704; Q9966

== ENCOUNTER 2020-06-16 07:17 | Day surgery (SDC) | payer OTHER ==
[~2020-06-16 07:17] MED LIST changes: +BUPIVACAINE 0.5% VIAL IJ ONE; +Lactated Ringers 1,000 ML IV ONE; -Lactated Ringers 1,000 ML IV SCH; +XYLOCAINE 1% HCL 20 ML MDV ONE
[2020-06-16] MEDS ORDERED: VANCOCIN 1 GM VIAL IV ONE (07:18)
[2020-06-16] MEDS ORDERED: CEFAZOLIN 2 GM-D5W BAG** 2 GM/50 ML ML IV SCH (08:00)
[2020-06-16] MEDS ORDERED: Lactated Ringers 1,000 ML IV SCH (08:00)
[2020-06-16] MEDS ORDERED: DIPRIVAN 200 MG/20 ML IV ONE (08:55)
[2020-06-16] MEDS ORDERED: Versed 2 MG/2 ML Injection ONE (08:55)
[2020-06-16] MEDS ORDERED: Zemuron 100 MG/10 ML ONE (08:55)
[2020-06-16] MEDS ORDERED: Quelicin Fliptop 200 MG/10 ML ONE (08:55)
[2020-06-16] MEDS ORDERED: SUBLIMAZE 250 MCG/5 ML ONE (08:56)
[2020-06-16] MEDS ORDERED: DILAUDID 2 MG INJECTION ONE (09:37)
[2020-06-16] MEDS ORDERED: BRIDION 200MG/2ML IV ONE (10:23)
--- NOTE | 2020-06-16 10:40 | XRAY ---
Indication: Left foot hardware removal. Intraoperative fluoroscopy provided 14 seconds. 2 digital spot images left ankle demonstrates removal of fixation plate/screws as seen on May 09, 2020 exam. Correlate with intraoperative findings/report.
[2020-06-16] MEDS ORDERED: Zofran 4 MG/2 ML VIAL ONE (10:52)
[2020-06-16] MEDS ORDERED: TRANDATE 100 MG/20 ML MDV FOR DRIP IV ONE (10:57)
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
[2020-06-16 12:18] VITALS: O2SAT 93
[2020-06-16 12:26] VITALS: BP 152/91; PULSE 80
--- NOTE | 2020-06-16 12:34 | XRAY ---
18 seconds of fluoroscopy was used in surgery for hardware removal of left foot.
== END 2020-06-16 12:00 | disposition home or self-care (01) ==
LOC: SDC 07:17
PROVIDERS: ATTEND Podiatrist Foot & Ankle Surgery
DX: T84.84XA Pain due to internal orthopedic prosthetic devices, implants and grafts, initial encounter (principal); E11.9 Type 2 diabetes mellitus without complications; I11.0 Hypertensive heart disease with heart failure; J44.9 Chronic obstructive pulmonary disease, unspecified; Z79.899 Other long term (current) drug therapy
CPT/HCPCS: 20680; 73620; 76000; 82947; 88304; J0330; J0690; J1170; J2250; J2405; J2704; J3010; J3370

== ENCOUNTER 2020-08-30 18:29 | Emergency (ER) | payer OTHER ==
[2020-08-30 18:52] LABS: Hematocrit 46.4 % (42-50); Hemoglobin 15.3 gm/dl (12.5-18.0); Mean Platelet Volume 12.4 fl (7.5-11.0); Platelet Count 311 K/mm3 (150-450); Red Blood Count 5.27 M/mm3 (4.1-5.6); Red Cell Distribution Width 14.4 % (11.5-14.0); White Blood Count 20.4 K/mm3 (4.0-10.5)
[2020-08-30 19:14] LABS: ALBUMIN 4.6 g/dL (3.5-5.0); ALKALINE PHOSPHATASE 49 U/L (38-126); ANION GAP 15.5 MEQ/L (5-15); BLOOD UREA NITROGEN 20 mg/dL (9-20); CHLORIDE 100 mmol/L (98-107); Calcium 9.7 mg/dL (8.4-10.2); Carbon Dioxide 23 mmol/L (22-30); Creatinine 1 0.97 mg/dL (0.66-1.25); EST GLOMERULAR FILTRATION RATE > 60.0 ML/MIN; Glucose 449 mg/dL (74-106); MAGNESIUM 1.9 mg/dL (1.6-2.3); NT PRO BNP 66.5 pg/mL (0-450); Potassium 4.5 mmol/L (3.5-5.1); SGOT/AST 28 U/L (17-59); SGPT/ALT 28 U/L (0-50); SODIUM 134 mmol/L (137-145); Total Protein 8.1 g/dL (6.3-8.2)
[2020-08-30 19:44] LABS: BAND 1 % (0.0-2.0); Eosinophil 1 % (0.00-3.0); Lymphocytes 16 % (24-44); Monocyte 7 % (0.0-12.0); Neutrophils 75 % (36.-66.); Platelet Estimate NORMAL (NORMAL); Total Cells Counted 100
[2020-08-30 22:16] LABS: Appearance CLEAR (CLEAR); Bilirubin NEGATIVE (NEGATIVE); Blood NEGATIVE Ery/ul (0-5); Glucose >=500 mg/dL (NEGATIVE); Ketones NEGATIVE (NEGATIVE); Leukocyte Esterase NEGATIVE (NEGATIVE); Nitrite NEGATIVE (NEGATIVE); Protein,Urine Dip NEGATIVE (Negative); Specific Gravity 1.032 (1.005-1.025); Urobilinogen NEGATIVE mg/dL (0-1)
[2020-08-30 22:28] LABS: Amphetamine,Urine NEGATIVE (NEGATIVE); Barbiturate,Urine NEGATIVE (NEGATIVE); Benzodiazepine,Urine NEGATIVE (NEGATIVE); Cocaine,Urine NEGATIVE (NEGATIVE); Methadone,Urine NEGATIVE (NEGATIVE); Opiate,Urine NEGATIVE (NEGATIVE); PCP,Urine NEGATIVE (NEGATIVE); THC,Urine NEGATIVE (NEGATIVE)
--- NOTE | 2020-08-30 22:28 | ERPHSYRPT ---
- History of Present Illness Time Seen by Provider: 08/30/20 18:50 Source: patient Exam Limitations: no limitations Patient Subjective Stated Complaint: Pt states that he has had chest pain off and on for about a week and it is severe pain today Triage Nursing Assessment: Pt drove self to the ER, hypertensive, appears to be in significant pain, bounding pulses, oxygen 100% but states he feels SOB, shaking, rates pain 10/10 in his chest and states that his right arm hurts Physician History: Patient is a 44-year-old male presents to our ED with complaints of chest pain and hypertension. Patient states he has been experiencing intermittent chest pain for the past week. The chest pain became severe today. Chest pain rated 10 out of 10. Chest pain radiates right arm. However patient appears comfortable. Patient is concerned his blood pressures has been elevated. He declined pain medication. Patient states he has been under extreme stress. He is currently going through a divorce. He has a court date tomorrow which she states he must attend. No associated nausea vomiting or diaphoresis. No history of [place]. Patient is a diabetic. Patient voices no other complaints concerns at this time. Timing/Duration: week(s) (1 week) Severity: moderate Modifying Factors: Improves With: nothing Associated Symptoms: denies symptoms Allergies/Adverse Reactions: NKA Allergy (Verified 08/30/20 18:41) Home Medications: lisinopriL [Lisinopril] 5 mg PO DAILY 03/14/19 [History] Hydrocodone Bit/Acetaminophen [[place] 10-325 Tablet] 10 mg PO TID 02/26/20 [Hist ory] Metformin HCl 500 mg PO DAILY 02/26/20 [History] Albuterol Sulfate [Albuterol Sulfate Hfa] 2 puff .ROUTE TID 06/09/20 [History] Buspirone HCl [Buspar] 5 mg PO TID PRN 06/09/20 [History] Esomeprazole Magnesium [Nexium] 40 mg PO DAILY 06/09/20 [History] Hx Tetanus, Diphtheria Vaccination/Date Given: Yes Hx Influenza Vaccination/Date Given: No Hx Pneumococcal Vaccination/Date Given: No Travel Risk - International Travel Have you traveled outside of the country in past 3 weeks: No - Coronavirus Screening Are you exhibiting any of the following symptoms?: No Close contact with a COVID-19 positive Pt in past 14-21 Days: No - Vaccine Status Have you recieved a Covid-19 vaccination: No - Review of Systems Constitutional: No Symptoms, No Fever, No Chills Eyes: No Symptoms Ears, Nose, & Throat: No Symptoms Respiratory: No Symptoms, No Cough, No Dyspnea Cardiac: No Symptoms, No Chest Pain, No Edema, No Syncope Abdominal/Gastrointestinal: No Symptoms, No Abdominal Pain, No Nausea, No Vomiting, No Diarrhea Genitourinary Symptoms: No Symptoms, No Dysuria Musculoskeletal: No Symptoms, No Back Pain, No Neck Pain Skin: No Symptoms, No Rash Neurological: No Symptoms, No Dizziness, No Focal Weakness, No Sensory Changes Psychological: No Symptoms Endocrine: No Symptoms Hematologic/Lymphatic: No Symptoms Immunological/Allergic: No Symptoms All Other Systems: Reviewed and Negative - Past Medical History Pertinent Past Medical History: Yes Neurological History: No Pertinent History ENT History: No Pertinent History Cardiac History: Hypertension Respiratory History: COPD Endocrine Medical History: Diabetes Type II Musculoskeletal History: Fractures GI Medical History: Diverticulitis, GERD History: No Pertinent History Psycho-Social History: No Pertinent History Male Reproductive Disorders: No Pertinent History Other Medical History: DIVERTICULITIS. GERD - Past Surgical History Past Surgical History: Yes Neuro Surgical History: No Pertinent History Cardiac: No Pertinent History Respiratory: No Pertinent History Gastrointestinal: No Pertinent History, Other Genitourinary: No Pertinent History Musculoskeletal: Orthopedic Surgery Male Surgical History: No Pertinent History Other Surgical History: L foot, partial intestine removed, - Social History Smoking Status: Current every day smoker How long have you smoked: years Exposure to second hand smoke: Yes Drug Use: none Patient Lives Alone: Yes - Nursing Vital Signs Nursing Vital Signs: Initial Vital Signs Temperature 97.8 F 08/30/20 18:31 Pulse Rate 107 H 08/30/20 18:31 Respiratory Rate 15 08/30/20 18:31 Blood Pressure 230/117 08/30/20 18:31 O2 Sat by Pulse Oximetry 100 08/30/20 18:31 Pain Scale Pain Intensity 0 - Physical Exam General Appearance: no apparent distress, alert Eye Exam: PERRL/EOMI, eyes nml inspection Ears, Nose, Throat Exam: normal ENT inspection, TMs normal, pharynx normal, moist mucous membranes Neck Exam: normal inspection, non-tender, supple, full range of motion Respiratory Exam: normal breath sounds, lungs clear, No respiratory distress Cardiovascular Exam: regular rate/rhythm, normal heart sounds, normal peripheral pulses Gastrointestinal/Abdomen Exam: soft, normal bowel sounds, No tenderness, No mass Back Exam: normal inspection, normal range of motion, No CVA tenderness, No vertebral tenderness Extremity Exam: normal inspection, normal range of motion, pelvis stable Neurologic Exam: alert, oriented x 3, cooperative, normal mood/affect, nml cerebellar function, sensation nml, No motor deficits Skin Exam: normal color, warm, dry, No rash Lymphatic Exam: No adenopathy SpO2 Interpretation: normal SpO2: 96 O2 Delivery: Room Air - Course Nursing assessment & vital signs reviewed: Yes EKG Interpreted by Me: RATE, Sinus Rhythm, NORMAL AXIS, NORMAL INTERVALS - Radiology Exams Chest X-ray Interpretation: Interpreted by me (Clear lung kelley, normal cardiac silhouette, intact bony thorax.) Ordered Tests: Active Orders 24 hr Category Date Time Status [employer]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 STAT Care 08/30/20 18:34 Completed EKG-ER Only STAT Care 08/30/20 18:33 Completed IV Insertion STAT Care 08/30/20 18:33 Completed Pulse Oximetry (ED) STAT Care 08/30/20 18:33 Completed CHEST 1 VIEW (PORTABLE) Stat Exams 08/30/20 18:34 Taken CBC W DIFF Stat Lab 08/30/20 18:40 Completed CMP Stat Lab 08/30/20 18:40 Completed D-DIMER QUANTITATIVE Stat Lab 08/30/20 18:40 Completed MAGNESIUM Stat Lab 08/30/20 18:40 Completed Manual Differential NC Stat Lab 08/30/20 18:40 Completed NT PRO BNP Stat Lab 08/30/20 18:40 Completed TROPONIN Q3H Lab 08/30/20 18:40 Completed TROPONIN Q3H Lab 08/30/20 21:53 Completed UA W/RFX UR CULTURE Stat Lab 08/30/20 22:06 Completed Urine Triage Profile Stat Lab 08/30/20 22:06 Completed Medication Summary Discontinued Medications Generic Name Dose Route Start Last Admin Trade Name Freq PRN Reason Stop Dose Admin Heparin Sodium (Beef Lung) Confirm 08/30/20 22:59 Heparin 5000 Units/0.5 Ml (High Risk Med) Administered 08/30/20 23:00 Dose 5,000 unit .ROUTE .STK-MED ONE Insulin Human Regular 100 unit 100 mls @ 13.608 mls/hr 08/30/20 22:37 / Sodium Chloride IV 09/29/20 22:36 .Q7H21M PRN DKA/HYPERGLYCEMIA Protocol 0.1 UNIT/KG/HR Nitroglycerin/Dextrose 250 mls @ 1.5 mls/hr 08/30/20 22:53 08/30/20 23:00 Ntg 0.2mg/Ml In D5w Glass IV 09/29/20 22:52 5 mcg/min .Q24H PRN 1.5 mls/hr CHEST PAIN Administration Protocol 5 MCG/MIN Heparin Sodium/Dextrose Confirm 08/30/20 22:59 Heparin 25,000 Units/D5w 250ml Premix Administered 08/30/20 23:00 Dose 25,000 units in 250 mls @ ud IV .STK-MED ONE Nitroglycerin/Dextrose Confirm 08/30/20 23:00 Ntg 0.2mg/Ml In D5w Glass Administered 08/30/20 23:01 Dose 250 mls @ ud IV .STK-MED ONE Insulin Human Regular 6 unit 08/30/20 22:37 08/30/20 22:44 Humulin R SQ 08/30/20 22:38 6 unit ONCE STA Administration Insulin Human Regular Confirm 08/30/20 22:42 Humulin R Administered 08/30/20 22:43 Dose 6 unit .ROUTE .STK-MED ONE Lab/Rad Data: Laboratory Result Diagrams 08/30/20 18:40 08/30/20 18:40 Laboratory Results 08/30/20 08/30/20 08/30/20 Range/Units 22:06 22:06 21:53 WBC (4.0-10.5) K/mm3 RBC (4.1-5.6) M/mm3 Hgb (12.5-18.0) gm/dl Hct (42-50) % MCV (78-100) fl MCH (26-32) pg MCHC (32-36) g/dl RDW (11.5-14.0) % Plt Count (150-450) K/mm3 MPV (7.5-11.0) fl Segmented Neutrophils (36.-66.) % Band Neutrophils (0.0-2.0) % Lymphocytes (Manual) (24-44) % Monocytes (Manual) (0.0-12.0) % Eosinophils (Manual) (0.00-3.0) % Platelet Estimate (NORMAL) RBC Morphology D-Dimer (215-500) ng/mL Sodium (137-145) mmol/L Potassium (3.5-5.1) mmol/L Chloride (98-107) mmol/L Carbon Dioxide (22-30) mmol/L Anion Gap (5-15) MEQ/L BUN (9-20) mg/dL Creatinine (0.66-1.25) mg/dL Estimated GFR ML/MIN Glucose (74-106) mg/dL Calcium (8.4-10.2) mg/dL Magnesium (1.6-2.3) mg/dL Total Bilirubin (0.2-1.3) mg/dL AST (17-59) U/L ALT (0-50) U/L Alkaline Phosphatase (38-126) U/L Troponin I 0.099 H* (0.000-0.034) ng/mL NT-Pro-B Natriuret Pep (0-450) pg/mL Serum Total Protein (6.3-8.2) g/dL Albumin (3.5-5.0) g/dL Urine Color STRAW (YELLOW) Urine Appearance CLEAR (CLEAR) Urine pH 5.0 (5-6) Ur Specific [place] 1.032 (1.005-1.025) Urine Protein NEGATIVE (Negative) Urine Ketones NEGATIVE (NEGATIVE) Urine Blood NEGATIVE (0-5) Rambo/ul Urine Nitrite NEGATIVE (NEGATIVE) Urine Bilirubin NEGATIVE (NEGATIVE) Urine Urobilinogen NEGATIVE (0-1) mg/dL Ur Leukocyte Esterase NEGATIVE (NEGATIVE) Urine WBC (Auto) NONE (0-5) /HPF Urine RBC (Auto) NONE (0-2) /HPF U Epithel Cells (Auto) NONE (FEW) /HPF Urine Bacteria (Auto) NONE (NEGATIVE) /HPF Urine Culture Reflexed NO (NO) Urine Glucose >=500 (NEGATIVE) mg/dL Urine Opiates Level NEGATIVE (NEGATIVE) Ur Methadone NEGATIVE (NEGATIVE) Urine Barbiturates NEGATIVE (NEGATIVE) Ur Phencyclidine (PCP) NEGATIVE (NEGATIVE) Urine Amphetamine NEGATIVE (NEGATIVE) U Benzodiazepine Level NEGATIVE (NEGATIVE) Urine Cocaine NEGATIVE (NEGATIVE) Urine Marijuana (THC) NEGATIVE (NEGATIVE) 08/30/20 08/30/20 08/30/20 Range/Units 18:40 18:40 18:40 WBC (4.0-10.5) K/mm3 RBC (4.1-5.6) M/mm3 Hgb (12.5-18.0) gm/dl Hct (42-50) % MCV (78-100) fl MCH (26-32) pg MCHC (32-36) g/dl RDW (11.5-14.0) % Plt Count (150-450) K/mm3 MPV (7.5-11.0) fl Segmented Neutrophils (36.-66.) % Band Neutrophils (0.0-2.0) % Lymphocytes (Manual) (24-44) % Monocytes (Manual) (0.0-12.0) % Eosinophils (Manual) (0.00-3.0) % Platelet Estimate (NORMAL) RBC Morphology D-Dimer 228 (215-500) ng/mL Sodium 134 L (137-145) mmol/L Potassium 4.5 (3.5-5.1) mmol/L Chloride 100 (98-107) mmol/L Carbon Dioxide 23 (22-30) mmol/L Anion Gap 15.5 H (5-15) MEQ/L BUN 20 (9-20) mg/dL Creatinine 0.97 (0.66-1.25) mg/dL Estimated GFR > 60.0 ML/MIN Glucose 449 H (74-106) mg/dL Calcium 9.7 (8.4-10.2) mg/dL Magnesium 1.9 (1.6-2.3) mg/dL Total Bilirubin 0.50 (0.2-1.3) mg/dL AST 28 (17-59) U/L ALT 28 (0-50) U/L Alkaline Phosphatase 49 (38-126) U/L Troponin I 0.020 (0.000-0.034) ng/mL NT-Pro-B Natriuret Pep 66.5 (0-450) pg/mL Serum Total Protein 8.1 (6.3-8.2) g/dL Albumin 4.6 (3.5-5.0) g/dL Urine Color (YELLOW) Urine Appearance (CLEAR) Urine pH (5-6) Ur Specific [place] (1.005-1.025) Urine Protein (Negative) Urine Ketones (NEGATIVE) Urine Blood (0-5) Rambo/ul Urine Nitrite (NEGATIVE) Urine Bilirubin (NEGATIVE) Urine Urobilinogen (0-1) mg/dL Ur Leukocyte Esterase (NEGATIVE) Urine WBC (Auto) (0-5) /HPF Urine RBC (Auto) (0-2) /HPF U Epithel Cells (Auto) (FEW) /HPF Urine Bacteria (Auto) (NEGATIVE) /HPF Urine Culture Reflexed (NO) Urine Glucose (NEGATIVE) mg/dL Urine Opiates Level (NEGATIVE) Ur Methadone (NEGATIVE) Urine Barbiturates (NEGATIVE) Ur Phencyclidine (PCP) (NEGATIVE) Urine Amphetamine (NEGATIVE) U Benzodiazepine Level (NEGATIVE) Urine Cocaine (NEGATIVE) Urine Marijuana (THC) (NEGATIVE) 08/30/20 Range/Units 18:40 WBC 20.4 H (4.0-10.5) K/mm3 RBC 5.27 (4.1-5.6) M/mm3 Hgb 15.3 (12.5-18.0) gm/dl Hct 46.4 (42-50) % MCV 88.0 (78-100) fl MCH 29.0 (26-32) pg MCHC 33.0 (32-36) g/dl RDW 14.4 H (11.5-14.0) % Plt Count 311 (150-450) K/mm3 MPV 12.4 H (7.5-11.0) fl Segmented Neutrophils 75 H (36.-66.) % Band Neutrophils 1 (0.0-2.0) % Lymphocytes (Manual) 16 L (24-44) % Monocytes (Manual) 7 (0.0-12.0) % Eosinophils (Manual) 1 (0.00-3.0) % Platelet Estimate NORMAL (NORMAL) RBC Morphology NORMAL D-Dimer (215-500) ng/mL Sodium (137-145) mmol/L Potassium (3.5-5.1) mmol/L Chloride (98-107) mmol/L Carbon Dioxide (22-30) mmol/L Anion Gap (5-15) MEQ/L BUN (9-20) mg/dL Creatinine (0.66-1.25) mg/dL Estimated GFR ML/MIN Glucose (74-106) mg/dL Calcium (8.4-10.2) mg/dL Magnesium (1.6-2.3) mg/dL Total Bilirubin (0.2-1.3) mg/dL AST (17-59) U/L ALT (0-50) U/L Alkaline Phosphatase (38-126) U/L Troponin I (0.000-0.034) ng/mL NT-Pro-B Natriuret Pep (0-450) pg/mL Serum Total Protein (6.3-8.2) g/dL Albumin (3.5-5.0) g/dL Urine Color (YELLOW) Urine Appearance (CLEAR) Urine pH (5-6) Ur Specific [place] (1.005-1.025) Urine Protein (Negative) Urine Ketones (NEGATIVE) Urine Blood (0-5) Rambo/ul Urine Nitrite (NEGATIVE) Urine Bilirubin (NEGATIVE) Urine Urobilinogen (0-1) mg/dL Ur Leukocyte Esterase (NEGATIVE) Urine WBC (Auto) (0-5) /HPF Urine RBC (Auto) (0-2) /HPF U Epithel Cells (Auto) (FEW) /HPF Urine Bacteria (Auto) (NEGATIVE) /HPF Urine Culture Reflexed (NO) Urine Glucose (NEGATIVE) mg/dL Urine Opiates Level (NEGATIVE) Ur Methadone (NEGATIVE) Urine Barbiturates (NEGATIVE) Ur Phencyclidine (PCP) (NEGATIVE) Urine Amphetamine (NEGATIVE) U Benzodiazepine Level (NEGATIVE) Urine Cocaine (NEGATIVE) Urine Marijuana (THC) (NEGATIVE) - Progress Progress: improved Progress Note: Patient reassessed. He is resting comfortably. Blood pressure improved. Initial troponin slightly elevated. 0.020. Second troponin is 0.099. Heparin drip initiated. Nitroglycerin drip initiated. Patient resting comfortably. Patient concerned that he has a court date tomorrow. Patient initially wanted to leave AGAINST MEDICAL ADVICE but after discussing the seriousness of his condition he decided to stay. Due to elevated troponin patient be transferred to [facility] for further evaluation and treatment. Case discussed with ED physician at [facility] who accepts transfer. Plan of care discussed with patient. He agrees to transfer to [facility] for further evaluation and treatment. He voices no other complaints concerns at this time. 08/31/20 06:58 Counseled pt/family regarding: lab results, diagnosis, rad results - Departure Departure Disposition: Transfer Clinical Impression: ACS (acute coronary syndrome), Chest pain, STEMI (ST elevation myocardial infarction), Hypertension Condition: Stable Critical Care Time: No Referrals: JEREMIAH MARTIN MD [Primary Care Provider] -
[2020-08-30] MEDS ORDERED: HUMULIN R 100 UNIT in Sodium Chloride 0.9% 100 ML BAG 100 ML IV PRN (22:37)
[2020-08-30] MEDS ORDERED: HUMULIN R SQ STA (22:37)
[2020-08-30] MEDS ORDERED: HUMULIN R ONE (22:42)
[2020-08-30] MEDS ORDERED: Ntg 0.2MG/Ml in D5W GLASS*** 250 ML IV PRN (22:53)
[2020-08-30] MEDS ORDERED: Heparin 25,000 units/D5W 250ML PREMIX 25,000 UNITS/250 ML BAG IV ONE (22:59)
[2020-08-30] MEDS ORDERED: Heparin 5000 UNITS/0.5 ML (HIGH RISK MED) ONE (22:59)
[2020-08-30] MEDS ORDERED: Ntg 0.2MG/Ml in D5W GLASS*** 250 ML IV ONE (23:00)
[2020-08-31 00:29] VITALS: BP 163/88; PULSE 82; O2SAT 96
--- NOTE | 2020-08-31 08:40 | XRAY ---
Indication: Chest pain. Comparison: February 26, 2020. Portable apical lordotic chest again demonstrates normal heart, lungs, and bony thorax.
== END 2020-08-31 00:41 | disposition short-term general hospital (02) ==
LOC: ED 18:29
DX: I24.9 Acute ischemic heart disease, unspecified (principal); R07.9 Chest pain, unspecified; I21.3 ST elevation (STEMI) myocardial infarction of unspecified site
CPT/HCPCS: 36000; 36415; 71045; 80053; 80307; 81001; 83735; 83880; 84484; 85025; 85379; 93005; 93041; 94760; 96365; 96366; 96372; 99285; J1644; J1815

== ENCOUNTER 2020-11-06 19:10 | Emergency (ER) | payer OTHER ==
--- NOTE | 2020-11-06 20:06 | ERPHSYRPT ---
- History of Present Illness Patient Subjective Stated Complaint: Patient stated " I was walking out od Cardiac Triage Nursing Assessment: . Allergies/Adverse Reactions: NKA Allergy (Verified 11/06/20 19:31) Home Medications: lisinopriL [Lisinopril] 10 mg PO DAILY 03/14/19 [History] Hydrocodone Bit/Acetaminophen [[place] 10-325 Tablet] 10 mg PO TID 02/26/20 [History] Metformin HCl 500 mg PO DAILY 02/26/20 [History] Albuterol Sulfate [Albuterol Sulfate Hfa] 2 puff .ROUTE TID 06/09/20 [History] Esomeprazole Magnesium [Nexium] 40 mg PO DAILY 06/09/20 [History] Aspirin [Aspirin EC] 81 mg PO DAILY 11/06/20 [History] Atorvastatin Calcium 40 mg PO HS 11/06/20 [History] Chlorthalidone 25 mg PO DAILY 11/06/20 [History] Insulin Glargine,Hum.rec.anlog [Semglee Pen] 100 unit SQ DAILY 11/06/20 [History] Isosorbide Mononitrate 30 mg [Imdur 30 MG] 30 mg PO DAILY 11/06/20 [History] Metoprolol Tartrate 25 mg [Lopressor 25MG Tab] 25 mg PO DAILY 11/06/20 [History] Ticagrelor [Brilinta] 90 mg PO BID 11/06/20 [History] Hx Tetanus, Diphtheria Vaccination/Date Given: Yes Hx Influenza Vaccination/Date Given: No Hx Pneumococcal Vaccination/Date Given: No Immunizations Up to Date: Yes Travel Risk - International Travel Have you traveled outside of the country in past 3 weeks: No - Coronavirus Screening Are you exhibiting any of the following symptoms?: No - Vaccine Status Have you recieved a Covid-19 vaccination: No - Review of Systems Constitutional: No Symptoms, No Fever, No Chills Eyes: No Symptoms Ears, Nose, & Throat: No Symptoms Respiratory: No Symptoms, No Cough, No Dyspnea Cardiac: No Symptoms, No Chest Pain, No Edema, No Syncope Abdominal/Gastrointestinal: No Symptoms, No Abdominal Pain, No Nausea, No Vomiting, No Diarrhea Genitourinary Symptoms: No Symptoms, No Dysuria Musculoskeletal: No Symptoms, No Back Pain, No Neck Pain Skin: No Symptoms, No Rash Neurological: No Symptoms, No Dizziness, No Focal Weakness, No Sensory Changes Psychological: No Symptoms Endocrine: No Symptoms Hematologic/Lymphatic: No Symptoms Immunological/Allergic: No Symptoms All Other Systems: Reviewed and Negative - Past Medical History Pertinent Past Medical History: Yes Neurological History: No Pertinent History ENT History: No Pertinent History Cardiac History: High Cholesterol, Hypertension, Myocardial Infarction ([place]) Respiratory History: COPD Endocrine Medical History: Diabetes Type II Musculoskeletal History: Fractures GI Medical History: Diverticulitis, GERD History: No Pertinent History Psycho-Social History: No Pertinent History Male Reproductive Disorders: No Pertinent History Other Medical History: DIVERTICULITIS. GERD - Past Surgical History Past Surgical History: Yes Neuro Surgical History: No Pertinent History Cardiac: No Pertinent History Respiratory: No Pertinent History Gastrointestinal: No Pertinent History, Other Genitourinary: No Pertinent History Musculoskeletal: Orthopedic Surgery Male Surgical History: No Pertinent History Other Surgical History: L foot, partial intestine removed, - Social History Smoking Status: Former smoker How long have you smoked: years Exposure to second hand smoke: Yes Drug Use: none Patient Lives Alone: Yes - Nursing Vital Signs Nursing Vital Signs: Initial Vital Signs Temperature 98.1 F 11/06/20 19:30 Pulse Rate 99 H 11/06/20 19:30 Respiratory Rate 20 11/06/20 19:30 Blood Pressure 159/101 11/06/20 19:30 O2 Sat by Pulse Oximetry 96 11/06/20 19:30 Pain Scale Pain Intensity 8 - Physical Exam General Appearance: no apparent distress, alert Eyes, Ears, Nose, Throat Exam: moist mucous membranes Neck Exam: non-tender, supple Cardiovascular/Respiratory Exam: chest non-tender, normal breath sounds, regular rate/rhythm, no respiratory distress Gastrointestinal/Abdominal Exam: non-tender, guarding Back Exam: normal inspection, No vertebral tenderness Hips Exam: bilateral: non-tender, normal inspection, normal range of motion, no evidence of injury Legs Exam: bilateral leg: non-tender, normal inspection, normal range of motion, no evidence of injury Knees Exam: bilateral knee: non-tender, normal inspection, normal range of motion, no evidence of injury Ankle Exam: right ankle: non-tender, normal inspection, normal range of motion, no evidence of injury, left ankle: pain, soft tissue tenderness, swelling, other (Tenderness palpation and swelling at the left ankle. Overlying soft tissue intact. No signs of trauma. Extremities neurovascular intact distally.) Foot Exam: bilateral foot: non-tender, normal inspection, normal range of motion, no evidence of injury Neuro/Tendon Exam: normal sensation, normal motor functions Mental Status Exam: alert, oriented x 3, cooperative Skin Exam: normal color, warm, dry SpO2 Interpretation: normal SpO2: 96 O2 Delivery: Room Air - Course Nursing assessment & vital signs reviewed: Yes - Radiology Exams Ankle X-ray Interpretation: Interpreted by me (Evidence of previous foot surgery. No acute fractures or dislocations. No soft tissue abnormalities. Other than soft tissue swelling.) Ordered Tests: Active Orders 24 hr Category Date Time Status ANKLE (3 VIEWS) Stat Exams 11/06/20 19:30 Taken - Progress Progress: improved Progress Note: Patient claimed pain medication. He is currently on [place] at home. X-rays negative for acute fracture dislocation. Patient declined crutches. Ortho referral made. Patient agrees to follow-up as discussed. He voices no other complaints or concerns at this time. Will discharge home. 11/06/20 20:07 Counseled pt/family regarding: diagnosis, need for follow-up, rad results - Departure Departure Disposition: Home Clinical Impression: Ankle sprain Condition: Stable Critical Care Time: No Referrals: JEREMIAH MARTIN MD [Primary Care Provider] - Additional Instructions: Discharge/Care Plan [place] LINK was seen on 11/06/20 in the Emergency Room. The patient was counseled regarding Diagnosis,Lab results, Imaging studies, need for follow up and when to return to the Emergency Room. Prescriptions given: Discharge Note I have spoken with the patient and/or caregivers. I have explained the patient's condition, diagnosis and treatment plan based on the information available to me at this time. I have answered the patient's and/or caregiver's questions and addressed any concerns. The patient and/or caregivers have as good understanding of the patient's diagnosis, condition and treatment plan as can be expected at this point. The vital signs have been stable. The patient's condition is stable and appropriate for discharge from the emergency department. The patient will pursue further outpatient evaluation with the primary care physician or other designated or consulting physician as outlined in the discharge instructions. The patient and/or caregivers are agreeable to this plan of care and follow-up instructions have been explained in detail. The patient and/or caregivers have received these instruction. The patient/and or caregivers are aware that any significant change in condition or worsening of symptoms should prompt an immediate return to this or the closest emergency department or call 911. Outpatient Orders: Ortho Referral Time Frame: 1 Day, Facility: [facility], Location: ORTHO CLINIC
[2020-11-06 20:24] VITALS: BP 127/79; PULSE 93; O2SAT 98
--- NOTE | 2020-11-08 10:48 | XRAY ---
Exam: 3 views of the left ankle from 11/06/2020. Comparison: 3 views of the left ankle from 08/29/2020. Indication: Patient states that he felt a "pop" in his left ankle while walking; two prior surgeries on left ankle, per patient. Findings: AP, oblique, and lateral radiographs of the left ankle were obtained. I again see postsurgical changes along the dorsal aspect of the hindfoot near the talonavicular joint. Multiple overlying heterotopic soft tissue calcifications are seen at this site. The tarsal navicular bone appears somewhat collapsed and dense on the oblique view representing no change. Correlate clinically. I again note moderate soft tissue prominence/swelling overlying the medial malleolus and mild soft tissue prominence/swelling overlying the lateral malleolus. The left ankle mortise is well-preserved and appears uniform. The distal left tibia and fibula are intact. The base of the left fifth metatarsal is intact. A minimal posterior calcaneal enthesophyte is seen. The plantar arch appears unremarkable. Impression: 1. I again see postsurgical changes overlying the dorsal aspect of the left hindfoot near the talonavicular junction. Heterotopic soft tissue calcifications are again seen in this projection. 2. There is no acute fracture or dislocation of the left ankle. The left ankle joint space remains unremarkable. 3. Soft tissue swelling about the left ankle, as discussed above, persists. 4. Minimal posterior left calcaneal enthesophyte.
== END 2020-11-06 20:32 | disposition home or self-care (01) ==
LOC: ED 19:10
DX: S93.402A Sprain of unspecified ligament of left ankle, initial encounter (principal); Z79.899 Other long term (current) drug therapy
CPT/HCPCS: 73610; 99283

== ENCOUNTER 2021-09-12 10:51 | Emergency (ER) | payer OTHER ==
[2021-09-12 10:56] VITALS: O2SAT 98
--- NOTE | 2021-09-12 10:57 | ERPHSYRPT ---
- History of Present Illness Time Seen by Provider: 09/12/21 10:56 Source: patient Exam Limitations: no limitations Patient Subjective Stated Complaint: Pt states "I am short of breath. I have been on and off for a few days." Triage Nursing Assessment: Pt presented alert and oriented X 3, skin pwd. Pt ambulates with an upright steady gait, able to speak in clear full sentences. PT in no apaprent respiratory distress at this time. Physician History: This is a 45-year-old overweight white male patient of Dr. Martin who presents with approximately 3-day history of intermittent shortness of breath that was worse today than usual. His room air oxygenation on arrival to the emergency department is 98%. He denies chest pain. He denies fever. He denies cough. He has had no nausea vomiting or diarrhea. Patient does have a history of hypertension, COPD that is not oxygen dependent, ono-[id number] diabetes, myocardial infarction/coronary artery disease on Brilinta, elevated cholesterol and gastroesophageal reflux disease. He denies calf pain. He denies myalgias and arthralgias. Timing/Duration: day(s) (3) Activities at Onset: none Severity of Dyspnea-Max: moderate Severity of Dyspnea-Current: moderate Possible Cause: occasional episodes (But do not typically last this long.) Modifying Factors: Improves With: activity (Worse), albuterol inhaler (Removed), albuterol nebulizer (Improved improved) Associated Symptoms: intermittent, weakness, No chest pain/discomfort Allergies/Adverse Reactions: NKA Allergy (Verified 11/06/20 19:31) Home Medications: lisinopriL [Lisinopril] 10 mg PO DAILY 03/14/19 [History] Hydrocodone/Acetaminophen [[place] 10-325 Tablet] 10 mg PO TID 02/26/20 [History] Metformin HCl 500 mg PO DAILY 02/26/20 [History] Albuterol Sulfate [Albuterol Sulfate Hfa] 2 puff .ROUTE TID 06/09/20 [History] Esomeprazole Magnesium [Nexium] 40 mg PO DAILY 06/09/20 [History] Aspirin [Aspirin EC] 81 mg PO DAILY 11/06/20 [History] Atorvastatin Calcium 40 mg PO HS 11/06/20 [History] Chlorthalidone 25 mg PO DAILY 11/06/20 [History] Insulin Glargine,Hum.rec.anlog [Semglee Pen] 100 unit SQ DAILY 11/06/20 [History] Isosorbide Mononitrate 30 mg [Imdur 30 MG] 30 mg PO DAILY 11/06/20 [History] Metoprolol Tartrate 25 mg [Lopressor 25MG Tab] 25 mg PO DAILY 11/06/20 [History] Ticagrelor [Brilinta] 90 mg PO BID 11/06/20 [History] Hx Tetanus, Diphtheria Vaccination/Date Given: Yes Hx Influenza Vaccination/Date Given: No Hx Pneumococcal Vaccination/Date Given: No Immunizations Up to Date: Yes Travel Risk - International Travel Have you traveled outside of the country in past 3 weeks: No - Coronavirus Screening Are you exhibiting any of the following symptoms?: Yes Symptoms: Cough: New Onset, Shortness of Breath - Vaccine Status Have you recieved a Covid-19 vaccination: No - Review of Systems Constitutional: Weakness Eyes: No Symptoms Ears, Nose, & Throat: No Symptoms Respiratory: Dyspnea Cardiac: No Symptoms, No Chest Pain Abdominal/Gastrointestinal: No Symptoms Genitourinary Symptoms: No Symptoms Musculoskeletal: No Symptoms Skin: No Symptoms Neurological: No Symptoms Psychological: No Symptoms Endocrine: No Symptoms Hematologic/Lymphatic: No Symptoms Immunological/Allergic: No Symptoms All Other Systems: Reviewed and Negative - Past Medical History Pertinent Past Medical History: Yes Neurological History: No Pertinent History ENT History: No Pertinent History Cardiac History: High Cholesterol, Hypertension, Myocardial Infarction ([place]) Respiratory History: COPD Endocrine Medical History: Diabetes Type II Musculoskeletal History: Fractures GI Medical History: Diverticulitis, GERD History: No Pertinent History Psycho-Social History: No Pertinent History Male Reproductive Disorders: No Pertinent History Other Medical History: DIVERTICULITIS. GERD - Past Surgical History Past Surgical History: Yes Neuro Surgical History: No Pertinent History Cardiac: No Pertinent History Respiratory: No Pertinent History Gastrointestinal: No Pertinent History, Other Genitourinary: No Pertinent History Musculoskeletal: Orthopedic Surgery Male Surgical History: No Pertinent History Other Surgical History: L foot, partial intestine removed, - Social History Smoking Status: Former smoker How long have you smoked: years Exposure to second hand smoke: Yes Drug Use: none Patient Lives Alone: Yes - Nursing Vital Signs Nursing Vital Signs: Initial Vital Signs Temperature 98.3 F 09/12/21 10:52 Pulse Rate 70 09/12/21 10:52 Respiratory Rate 24 09/12/21 10:52 Blood Pressure 137/74 09/12/21 10:52 O2 Sat by Pulse Oximetry 98 09/12/21 10:52 Pain Scale Pain Intensity 0 - Physical Exam General Appearance: no apparent distress, alert, anxiety Eye Exam: PERRL/EOMI, eyes nml inspection Ears, Nose, Throat Exam: hearing grossly normal, normal ENT inspection, normal pharynx Neck Exam: normal inspection, non-tender, supple, full range of motion Respiratory Exam: normal breath sounds, lungs clear, airway intact, No chest tenderness, No respiratory distress Cardiovascular/Chest Exam: normal heart sounds, regular rate/rhythm, normal peripheral pulses Abdominal/Gastrointestinal Exam: soft, normal bowel sounds, No tenderness Rectal Exam: not done Extremity Exam: non-tender, normal range of motion, normal capillary refill, no calf tenderness, no pedal edema, pelvis stable, No normal inspection Neurologic Exam: alert, oriented x 3, cooperative, concept artist II-XII nml as tested, normal mood/affect, nml cerebellar function, nml station & gait, sensation nml Skin Exam: normal color, warm, dry Lymphatic Exam: No adenopathy SpO2 Interpretation: normal SpO2: 98 O2 Delivery: Room Air - Course Nursing assessment & vital signs reviewed: Yes EKG Interpreted by Me: RATE (72), Sinus Rhythm, NORMAL AXIS, NORMAL INTERVALS, NORMAL QRS, NORMAL ST-T, Other (No acute ischemic changes) Ordered Tests: Active Orders 24 hr Category Date Time Status Pre Sales Network Engineer STAT Care 09/12/21 10:58 Active EKG-ER Only STAT Care 09/12/21 10:57 Active IV Insertion STAT Care 09/12/21 10:57 Active Pulse Oximetry (ED) STAT Care 09/12/21 10:57 Active CHEST 1 VIEW (PORTABLE) Stat Exams 09/12/21 10:58 Completed CBC W DIFF Stat Lab 09/12/21 11:00 Completed CMP Stat Lab 09/12/21 11:00 Completed CULTURE,SPUTUM Stat Lab 09/12/21 11:54 Ordered D-DIMER QUANTITATIVE Stat Lab 09/12/21 11:00 Completed NT PRO BNP Stat Lab 09/12/21 11:00 Completed TROPONIN Q3H Lab 09/12/21 11:20 Completed TROPONIN Q3H Lab 09/12/21 14:00 Ordered TROPONIN Q3H Lab 09/12/21 17:00 Ordered TROPONIN Q3H Lab 09/12/21 20:00 Ordered TROPONIN Q3H Lab 09/12/21 23:00 Ordered Medication Summary Generic Name Dose Route Start Last Admin Trade Name Gianni PRN Reason Stop Dose Admin Ceftriaxone Sodium/Dextrose 1 g in 50 mls @ 100 mls/hr 09/12/21 11:55 09/12/21 11:58 Rocephin 1 Gm-D5w 50 Ml Bag IV 09/12/21 12:24 100 mls/hr STAT STA 100 mls/hr Administration Discontinued Medications Generic Name Dose Route Start Last Admin Trade Name Gianni PRN Reason Stop Dose Admin Methylprednisolone Sodium 0 mg 09/12/21 11:15 09/12/21 11:20 Succinate 125 mg/ Sterile IV 09/12/21 11:16 125 mg Water 2 ml STAT ONE Administration Methylprednisolone Sodium Succinate Confirm 09/12/21 11:19 Methylprednis Sod Succ 125 Mg/2 Ml Vial Administered 09/12/21 11:20 Dose 125 mg .ROUTE .STK-MED ONE Sterile Water Confirm 09/12/21 11:19 Water For Injection,Sterile 10 Ml Vial Administered 09/12/21 11:20 Dose 10 ml IJ .STK-MED ONE Lab/Rad Data: Laboratory Result Diagrams 09/12/21 11:00 09/12/21 11:00 Laboratory Results 09/12/21 09/12/21 09/12/21 Range/Units 11:20 11:00 11:00 WBC (4.0-10.5) x10^3/uL RBC (4.1-5.6) x10^6/uL Hgb (12.5-18.0) g/dL Hct (42-50) % MCV (78-100) fL MCH (26-32) pg MCHC (32-36) g/dL RDW (11.5-14.0) % Plt Count (150-450) x10^3/uL MPV (7.5-11.0) fL Gran % (36.0-66.0) % Immature Gran % (Auto) (0.00-0.4) % Nucleat RBC Rel Count (0.00-0.1) % Eos # (Auto) (0-0.5) x10^3/uL Immature Gran # (Auto) (0.00-0.03) x10^3u/L Absolute Lymphs (auto) (1.0-4.6) x10^3/uL Absolute Monos (auto) (0.0-1.3) x10^3/uL Absolute Nucleated RBC (0.00-0.01) x10^3u/L Lymphocytes % (24.0-44.0) % Monocytes % (0.0-12.0) % Eosinophils % (0.00-5.0) % Basophils % (0.0-0.4) % Absolute Granulocytes (1.4-6.9) x10^3/uL Basophils # (0-0.4) x10^3/uL D-Dimer 0.28 (0.0-0.50) ng/mL Sodium 140 (137-145) mmol/L Potassium 4.7 (3.5-5.1) mmol/L Chloride 104 (98-107) mmol/L Carbon Dioxide 26 (22-30) mmol/L Anion Gap 15.6 H (5-15) MEQ/L BUN 20 (9-20) mg/dL Creatinine 1.05 (0.66-1.25) mg/dL Estimated GFR > 60.0 ML/MIN Glucose 165 H (74-106) mg/dL Calcium 9.6 (8.4-10.2) mg/dL Total Bilirubin 0.40 (0.2-1.3) mg/dL AST 21 (17-59) U/L ALT 27 (0-50) U/L Alkaline Phosphatase 41 (38-126) U/L Troponin I < 0.012 (0.000-0.034) ng/mL NT-Pro-B Natriuret Pep 38.1 (0-450) pg/mL Serum Total Protein 7.2 (6.3-8.2) g/dL Albumin 4.3 (3.5-5.0) g/dL 09/12/21 Range/Units 11:00 WBC 12.0 H (4.0-10.5) x10^3/uL RBC 5.30 (4.1-5.6) x10^6/uL Hgb 15.2 (12.5-18.0) g/dL Hct 47.7 (42-50) % MCV 90.0 (78-100) fL MCH 28.7 (26-32) pg MCHC 31.9 L (32-36) g/dL RDW 13.6 (11.5-14.0) % Plt Count 266 (150-450) x10^3/uL MPV 11.7 H (7.5-11.0) fL Gran % 69.4 H (36.0-66.0) % Immature Gran % (Auto) 0.3 (0.00-0.4) % Nucleat RBC Rel Count 0.0 (0.00-0.1) % Eos # (Auto) 0.15 (0-0.5) x10^3/uL Immature Gran # (Auto) 0.04 H (0.00-0.03) x10^3u/L Absolute Lymphs (auto) 2.74 (1.0-4.6) x10^3/uL Absolute Monos (auto) 0.70 (0.0-1.3) x10^3/uL Absolute Nucleated RBC 0.00 (0.00-0.01) x10^3u/L Lymphocytes % 22.9 L (24.0-44.0) % Monocytes % 5.8 (0.0-12.0) % Eosinophils % 1.3 (0.00-5.0) % Basophils % 0.3 (0.0-0.4) % Absolute Granulocytes 8.32 H (1.4-6.9) x10^3/uL Basophils # 0.04 (0-0.4) x10^3/uL D-Dimer (0.0-0.50) ng/mL Sodium (137-145) mmol/L Potassium (3.5-5.1) mmol/L Chloride (98-107) mmol/L Carbon Dioxide (22-30) mmol/L Anion Gap (5-15) MEQ/L BUN (9-20) mg/dL Creatinine (0.66-1.25) mg/dL Estimated GFR ML/MIN Glucose (74-106) mg/dL Calcium (8.4-10.2) mg/dL Total Bilirubin (0.2-1.3) mg/dL AST (17-59) U/L ALT (0-50) U/L Alkaline Phosphatase (38-126) U/L Troponin I (0.000-0.034) ng/mL NT-Pro-B Natriuret Pep (0-450) pg/mL Serum Total Protein (6.3-8.2) g/dL Albumin (3.5-5.0) g/dL - Progress Air Movement: good Progress Note: 09/12/21 11:26 Patient is refusing viral infection work-up. He does not want us to check for mono, strep, COVID, influenza a or B he is certain that he does not have a viral infection. 09/12/21 11:51 Chest x-ray shows no acute cardiopulmonary process Blood Culture(s) Obtained: No Counseled pt/family regarding: lab results, diagnosis, need for follow-up, rad results - Departure Departure Disposition: Home Clinical Impression: COPD exacerbation, Leukocytosis, Candidiasis of mouth Condition: Stable Critical Care Time: No Referrals: JEREMIAH MARTIN MD [Primary Care Provider] - Follow up/PCP as directed Instructions: Chronic Obstructive Pulmonary Disease Additional Instructions: Drink plenty of fluids. Avoid exposure to any type of smoke. Use your nebulizer treatment as discussed every 4 hours while awake. Continue your other medication as prescribed. Take your antibiotics as prescribed. Follow-up with your primary care physician for further evaluation and management. Keep your appointment with your primary care physician that scheduled tomorrow Prescriptions: Prednisone 10 mg [Deltasone 10 mg] 10 mg PO TID #12 tablet Azithromycin 250 mg [Zithromax 250 MG TABLET] 250 mg PO ZPACK #6 tablet
[2021-09-12 11:18] LABS: Absolute Neutrophil Ct (ANC) 8.32 x10^3/uL (1.4-6.9); Basophil (Absolute #) 0.04 x10^3/uL (0-0.4); Eosinophil % 1.3 % (0.00-5.0); Eosinophil (Absolute #) 0.15 x10^3/uL (0-0.5); Hematocrit 47.7 % (42-50); Hemoglobin 15.2 g/dL (12.5-18.0); Lymphocyte (Absolute #) 2.74 x10^3/uL (1.0-4.6); Lymphocytes % 22.9 % (24.0-44.0); Mean Corpuscular Hemoglobin 28.7 pg (26-32); Mean Corpuscular Hgb Concent. 31.9 g/dL (32-36); Mean Platelet Volume 11.7 fL (7.5-11.0); Monocytes % 5.8 % (0.0-12.0); Neutrophil % 69.4 % (36.0-66.0); Platelet Count 266 x10^3/uL (150-450); Red Cell Distribution Width 13.6 % (11.5-14.0)
[2021-09-12] MEDS ORDERED: solu-MEDROL ONE (11:19)
[2021-09-12] MEDS ORDERED: Sterile H2O 10 ml IJ ONE (11:19)
[2021-09-12] MEDS: solu-MEDROL 125 MG, Sterile H2O 10 ml 2 ML IV ONE ×2 (11:20)
--- NOTE | 2021-09-12 11:37 | XRAY ---
Indication: Short of breath. COPD. Comparison: August 30, 2020. Portable chest again demonstrates normal heart, lungs, and bony thorax.
[2021-09-12 11:38] LABS: ALBUMIN 4.3 g/dL (3.5-5.0); ALKALINE PHOSPHATASE 41 U/L (38-126); ANION GAP 15.6 MEQ/L (5-15); BLOOD UREA NITROGEN 20 mg/dL (9-20); CHLORIDE 104 mmol/L (98-107); Calcium 9.6 mg/dL (8.4-10.2); Carbon Dioxide 26 mmol/L (22-30); Creatinine 1 1.05 mg/dL (0.66-1.25); EST GLOMERULAR FILTRATION RATE > 60.0 ML/MIN; Glucose 165 mg/dL (74-106); NT PRO BNP 38.1 pg/mL (0-450); Potassium 4.7 mmol/L (3.5-5.1); SGOT/AST 21 U/L (17-59); SGPT/ALT 27 U/L (0-50); SODIUM 140 mmol/L (137-145); Total Protein 7.2 g/dL (6.3-8.2)
[2021-09-12] MEDS ORDERED: ROCEPHIN 1 Gm-D5w 50 ml Bag** 1 G/50 ML IVPB IV ONE (11:57)
[2021-09-12] MEDS: ROCEPHIN 1 Gm-D5w 50 ml Bag** 1 G/50 ML IVPB IV STA (11:58)
[2021-09-12 12:18] VITALS: BP 120/76; PULSE 70
[2021-09-12] MEDS: DIFLUCAN PO ONE (12:19)
== END 2021-09-12 12:25 | disposition home or self-care (01) ==
LOC: ED 10:51
DX: J44.1 Chronic obstructive pulmonary disease with (acute) exacerbation (principal); B37.0 Candidal stomatitis; D72.829 Elevated white blood cell count, unspecified; R06.02 Shortness of breath; I10 Essential (primary) hypertension; E11.9 Type 2 diabetes mellitus without complications; E78.5 Hyperlipidemia, unspecified; Z79.4 Long term (current) use of insulin; Z79.891 Long term (current) use of opiate analgesic; Z79.52 Long term (current) use of systemic steroids; Z79.899 Other long term (current) drug therapy
CPT/HCPCS: 36000; 36415; 71045; 80053; 83880; 84484; 85025; 85379; 93005; 93041; 94760; 96365; 96374; 99284; J0696; J2930; A9270-GY

== ENCOUNTER 2021-09-13 03:08 | Emergency (ER) | payer OTHER ==
[2021-09-13] MEDS ORDERED: BABY ASPIRIN 81 MG CHEW PO ONE (03:13)
[2021-09-13] MEDS ORDERED: Pepcid 20 MG VIAL IV ONE ×2 (03:15→03:44)
[2021-09-13] MEDS ORDERED: LOPRESSOR INJECTION IV ONE ×2 (03:15→03:44)
[2021-09-13] MEDS ORDERED: Sodium Chloride 0.9% 1000 ML 1,000 ML IV STA (03:15)
[2021-09-13] MEDS ORDERED: MORPHINE SULFATE 4 MG INJ IV ONE (03:15)
--- NOTE | 2021-09-13 03:20 | ERPHSYRPT ---
- History of Present Illness Time Seen by Provider: 09/13/21 03:10 Historian: patient Exam Limitations: no limitations Physician History: Patient seen on 09/12/2021 for shortness of breath, treated with steroids and for COPD and discharged home at that time. He comes in due to having chest pain that occurred at approximately midnight while he was lying down at rest. He tried to sublingual nitroglycerin which helped his symptoms and tried 1 [place] but his pain was still present so he came in for evaluation due to his past cardiac history. Timing/Duration: hour(s) (3) Activities at Onset: none Quality: stabbing Location: substernal Chest Pain Radiation: arm Severity of Pain-Max: severe Severity of Pain-Current: moderate Modifying Factors: Improves With: nothing Associated Symptoms: No nausea, No vomiting, No palpitations, No heartburn, No abdominal pain, No shortness of breath, No cough, No hurts to breathe, No diaphoresis, No chills, No weakness, No syncope, No rash, No headache, No dizziness, No edema, No back pain Prior Chest Pain/Cardiac Workup: heart attack, recently seen/treated Nitro Today/Relief: 0.4 mg x 2, provided at home, complete relief Aspirin Treatment Today: no aspirin today Allergies/Adverse Reactions: NKA Allergy (Verified 09/13/21 03:10) Home Medications: lisinopriL [Lisinopril] 40 mg PO DAILY 03/14/19 [History] Hydrocodone/Acetaminophen [[place] 10-325 Tablet] 10 mg PO QID PRN 02/26/20 [History] Metformin HCl 1,000 mg PO BID 02/26/20 [History] Albuterol Sulfate [Albuterol Sulfate Hfa] 2 puff .ROUTE TID 06/09/20 [History] Esomeprazole Magnesium [Nexium] 40 mg PO DAILY 06/09/20 [History] Aspirin [Aspirin EC] 81 mg PO DAILY 11/06/20 [History] Chlorthalidone 12.5 mg PO DAILY 11/06/20 [History] Isosorbide Mononitrate 30 mg [Imdur 30 MG] 60 mg PO DAILY 11/06/20 [Hist ory] Metoprolol Tartrate 25 mg [Lopressor 25MG Tab] 100 mg PO DAILY 11/06/20 [History] Ticagrelor [Brilinta] 90 mg PO BID 11/06/20 [History] Budesonide/Formoterol Fumarate [Budesonide-Formoterol 160-4.5] 1 puff PO Q4- 6HPRN PRN 09/13/21 [History] Ezetimibe 10 mg [Zetia 10 MG] 1 tab PO DAILY 09/13/21 [History] Insulin Glargine,Hum.rec.anlog [Basaglar Kwikpen U-100] 60 units SQ DAILY [History] Rosuvastatin Calcium 1 tab PO DAILY 09/13/21 [History] Hx Tetanus, Diphtheria Vaccination/Date Given: Yes Hx Influenza Vaccination/Date Given: No Hx Pneumococcal Vaccination/Date Given: No Travel Risk - Vaccine Status Have you recieved a Covid-19 vaccination: No - Review of Systems Constitutional: No Fever, No Chills Eyes: No Symptoms, No Eye Pain, No Eye Redness Ears, Nose, & Throat: No Symptoms, No Ear Pain, No Nose Congestion, No Mouth Pain Respiratory: No Cough, No Dyspnea Cardiac: Chest Pain, No Edema, No Syncope Abdominal/Gastrointestinal: No Abdominal Pain, No Nausea, No Vomiting, No Diarrhea Genitourinary Symptoms: No Dysuria, No Hematuria, No Flank Pain Musculoskeletal: No Back Pain, No Neck Pain Skin: No Rash Neurological: No Dizziness, No Focal Weakness, No Sensory Changes Psychological: No Symptoms Endocrine: No Symptoms All Other Systems: Reviewed and Negative - Past Medical History Pertinent Past Medical History: Yes Neurological History: No Pertinent History ENT History: No Pertinent History Cardiac History: High Cholesterol, Hypertension, Myocardial Infarction (NH) Respiratory History: COPD Endocrine Medical History: Diabetes Type II Musculoskeletal History: Fractures GI Medical History: Diverticulitis, GERD History: No Pertinent History Psycho-Social History: No Pertinent History Male Reproductive Disorders: No Pertinent History Other Medical History: DIVERTICULITIS. GERD - Past Surgical History Past Surgical History: Yes Neuro Surgical History: No Pertinent History Cardiac: No Pertinent History Respiratory: No Pertinent History Gastrointestinal: No Pertinent History, Other Genitourinary: No Pertinent History Musculoskeletal: Orthopedic Surgery Male Surgical History: No Pertinent History Other Surgical History: L foot, partial intestine removed, - Social History Smoking Status: Former smoker How long have you smoked: years Exposure to second hand smoke: Yes Drug Use: none Patient Lives Alone: Yes - Nursing Vital Signs Nursing Vital Signs: Initial Vital Signs Temperature 98 F 09/13/21 03:11 Pulse Rate 95 H 09/13/21 03:11 Respiratory Rate 24 09/13/21 03:11 Blood Pressure 204/94 09/13/21 03:11 O2 Sat by Pulse Oximetry 97 09/13/21 03:11 Pain Scale Pain Intensity 0 - Physical Exam General Appearance: no apparent distress, alert Eye Exam: PERRL/EOMI, eyes nml inspection Ears, Nose, Throat Exam: normal ENT inspection, moist mucous membranes Neck Exam: normal inspection, non-tender, supple, full range of motion, No JVD Respiratory Exam: normal breath sounds, lungs clear, No respiratory distress Cardiovascular Exam: regular rate/rhythm, normal heart sounds Gastrointestinal/Abdomen Exam: soft, normal bowel sounds, No tenderness, No mass, No guarding, No rebound Back Exam: normal inspection, No CVA tenderness, No vertebral tenderness Extremity Exam: normal inspection, normal range of motion Neurologic Exam: alert, oriented x 3, cooperative, roper operator II-XII nml as tested, normal mood/affect, sensation nml, No motor deficits Skin Exam: normal color, warm, dry, No petechiae, No jaundice, No cyanosis SpO2 Interpretation: normal O2 Delivery: Room Air - Course Nursing assessment & vital signs reviewed: Yes EKG Interpreted by Me: RATE (96), Sinus Rhythm, NORMAL AXIS, NORMAL INTERVALS, NORMAL QRS, Q-wave (Only lead III), NORMAL ST-T - Radiology Exams Chest X-ray Interpretation: Interpreted by me, Reviewed by me, Negative, No Pneumonia, No Pneumothorax, Nml Alignment, Nml Heart Size, No Infiltrates, Nml Mediastinum Ordered Tests: Active Orders 24 hr Category Date Time Status Sas Clinical Programmer STAT Care 09/13/21 03:10 Active Clean Catch Urine Specimen STAT Care 09/13/21 03:15 Active EKG-ER Only STAT Care 09/13/21 03:09 Active IV Insertion STAT Care 09/13/21 03:09 Active Pulse Oximetry (ED) STAT Care 09/13/21 03:15 Active CHEST 1 VIEW (PORTABLE) Stat Exams 09/13/21 03:09 Taken CBC W DIFF Stat Lab 09/13/21 03:25 Completed CK-Creatinine Phosphokinase Stat Lab 09/13/21 03:25 Completed CMP Stat Lab 09/13/21 03:25 Completed D-DIMER QUANTITATIVE Stat Lab 09/13/21 03:25 Completed LIPASE Stat Lab 09/13/21 03:25 Completed NT PRO BNP Stat Lab 09/13/21 03:25 Completed PROTIME WITH INR Stat Lab 09/13/21 03:25 Completed TROPONIN Q3H Lab 09/13/21 03:25 Completed TROPONIN Q3H Lab 09/13/21 06:02 Received TROPONIN Q3H Lab 09/13/21 09:15 Ordered TROPONIN Q3H Lab 09/13/21 12:15 Ordered TROPONIN Q3H Lab 09/13/21 15:15 Ordered Urine Triage Profile Stat Lab 09/13/21 05:07 Ordered Medication Summary Discontinued Medications Generic Name Dose Route Start Last Admin Trade Name Freq PRN Reason Stop Dose Admin Aspirin 324 mg 09/13/21 03:13 09/13/21 03:14 Aspirin 81 Mg Tab.Chew PO 09/13/21 03:14 324 mg STAT ONE Administration Famotidine 20 mg 09/13/21 03:15 09/13/21 05:06 Famotidine 20 Mg/1 Vial IV 09/13/21 03:16 Not Given STAT ONE Famotidine Confirm 09/13/21 03:44 Famotidine 20 Mg/1 Vial Administered 09/13/21 03:45 Dose 20 mg IV .STK-MED ONE Sodium Chloride 1,000 mls @ 999 mls/hr 09/13/21 03:15 09/13/21 05:06 Sodium Chloride 0.9% 1000 Ml IV 09/13/21 04:15 Infused .Q1H1M STA Infusion Sodium Chloride Confirm 09/13/21 03:45 Sodium Chloride 0.9% 1000 Ml Administered 09/13/21 03:46 Dose 1,000 mls @ ud .ROUTE .STK-MED ONE Metoprolol Tartrate 5 mg 09/13/21 03:15 09/13/21 05:05 Metoprolol Tartrate 5 Mg/5 Ml Injection IV 09/13/21 03:16 Not Given STAT ONE Metoprolol Tartrate Confirm 09/13/21 03:44 Metoprolol Tartrate 5 Mg/5 Ml Injection Administered 09/13/21 03:45 Dose 5 mg IV .STK-MED ONE Morphine Sulfate 4 mg 09/13/21 03:15 09/13/21 05:05 Morphine Sulfate 4 Mg/Ml Injection IV 09/13/21 03:16 Not Given STAT ONE Morphine Sulfate Confirm 09/13/21 03:44 Morphine Sulfate 4 Mg/Ml Injection Administered 09/13/21 03:45 Dose 4 mg .ROUTE .STK-MED ONE Lab/Rad Data: Laboratory Result Diagrams 09/13/21 03:25 09/13/21 03:25 Laboratory Results 09/13/21 09/13/21 09/13/21 Range/Units 03:25 03:25 03:25 WBC (4.0-10.5) x10^3/uL RBC (4.1-5.6) x10^6/uL Hgb (12.5-18.0) g/dL Hct (42-50) % MCV (78-100) fL MCH (26-32) pg MCHC (32-36) g/dL RDW (11.5-14.0) % Plt Count (150-450) x10^3/uL MPV (7.5-11.0) fL Gran % (36.0-66.0) % Immature Gran % (Auto) (0.00-0.4) % Nucleat RBC Rel Count (0.00-0.1) % Eos # (Auto) (0-0.5) x10^3/uL Immature Gran # (Auto) (0.00-0.03) x10^3u/L Absolute Lymphs (auto) (1.0-4.6) x10^3/uL Absolute Monos (auto) (0.0-1.3) x10^3/uL Absolute Nucleated RBC (0.00-0.01) x10^3u/L Lymphocytes % (24.0-44.0) % Monocytes % (0.0-12.0) % Eosinophils % (0.00-5.0) % Basophils % (0.0-0.4) % Absolute Granulocytes (1.4-6.9) x10^3/uL Basophils # (0-0.4) x10^3/uL PT 10.3 (9.4-12.5) SECONDS INR 0.97 (0.8-3.0) D-Dimer 0.27 (0.0-0.50) ng/mL Sodium 137 (137-145) mmol/L Potassium 4.3 (3.5-5.1) mmol/L Chloride 101 (98-107) mmol/L Carbon Dioxide 22 (22-30) mmol/L Anion Gap 17.7 H (5-15) MEQ/L BUN 27 H (9-20) mg/dL Creatinine 1.06 (0.66-1.25) mg/dL Estimated GFR > 60.0 ML/MIN Glucose 382 H (74-106) mg/dL Calcium 9.1 (8.4-10.2) mg/dL Total Bilirubin 0.30 (0.2-1.3) mg/dL AST 23 (17-59) U/L ALT 34 (0-50) U/L Alkaline Phosphatase 64 (38-126) U/L Creatine Kinase 96 (55-170) U/L Troponin I < 0.012 (0.000-0.034) ng/mL NT-Pro-B Natriuret Pep 91.6 (0-450) pg/mL Serum Total Protein 6.9 (6.3-8.2) g/dL Albumin 4.3 (3.5-5.0) g/dL Lipase 158 (23-300) U/L 09/13/21 Range/Units 03:25 WBC 16.9 H (4.0-10.5) x10^3/uL RBC 5.01 (4.1-5.6) x10^6/uL Hgb 14.4 (12.5-18.0) g/dL Hct 45.2 (42-50) % MCV 90.2 (78-100) fL MCH 28.7 (26-32) pg MCHC 31.9 L (32-36) g/dL RDW 13.9 (11.5-14.0) % Plt Count 262 (150-450) x10^3/uL MPV 11.9 H (7.5-11.0) fL Gran % 83.7 H (36.0-66.0) % Immature Gran % (Auto) 0.5 H (0.00-0.4) % Nucleat RBC Rel Count 0.0 (0.00-0.1) % Eos # (Auto) 0 (0-0.5) x10^3/uL Immature Gran # (Auto) 0.08 H (0.00-0.03) x10^3u/L Absolute Lymphs (auto) 1.64 (1.0-4.6) x10^3/uL Absolute Monos (auto) 1.02 (0.0-1.3) x10^3/uL Absolute Nucleated RBC 0.00 (0.00-0.01) x10^3u/L Lymphocytes % 9.7 L (24.0-44.0) % Monocytes % 6.0 (0.0-12.0) % Eosinophils % 0.0 (0.00-5.0) % Basophils % 0.1 (0.0-0.4) % Absolute Granulocytes 14.13 H (1.4-6.9) x10^3/uL Basophils # 0.01 (0-0.4) x10^3/uL PT (9.4-12.5) SECONDS INR (0.8-3.0) D-Dimer (0.0-0.50) ng/mL Sodium (137-145) mmol/L Potassium (3.5-5.1) mmol/L Chloride (98-107) mmol/L Carbon Dioxide (22-30) mmol/L Anion Gap (5-15) MEQ/L BUN (9-20) mg/dL Creatinine (0.66-1.25) mg/dL Estimated GFR ML/MIN Glucose (74-106) mg/dL Calcium (8.4-10.2) mg/dL Total Bilirubin (0.2-1.3) mg/dL AST (17-59) U/L ALT (0-50) U/L Alkaline Phosphatase (38-126) U/L Creatine Kinase (55-170) U/L Troponin I (0.000-0.034) ng/mL NT-Pro-B Natriuret Pep (0-450) pg/mL Serum Total Protein (6.3-8.2) g/dL Albumin (3.5-5.0) g/dL Lipase (23-300) U/L - Progress Progress: improved Air Movement: good Progress Note: 09/13/21 06:51 Patient has no active chest pain currently and is clear to auscultation on repeat evaluation; reviewed with him that we will be checking a second troponin and when that result comes back negative, patient can be discharged home to follow-up with his primary care physician later in the the morning of 09/13/2021 09/13/21 06:55 HEART score: 3, low risk of MACE in the next 30 days With patient having no active chest pain, low HEART score, and no obvious signs of any acute cardiac, vascular, infectious, metabolic or referred pain from the upper gastrointestinal tract, patient can be discharged home to follow-up with his primary care physician on 09/13/2021 to continue evaluation of his symptoms and modifying his risk factors. Patient has significant provement in his blood pressure since has been here in the emergency department. Patient return immediately back to the nearest emergency department if he has any worsening chest pain or any other concerning signs or symptoms for immediate reevaluation in the nearest emergency department. Blood Culture(s) Obtained: No Antibiotics given: No Counseled pt/family regarding: lab results, diagnosis, rad results - Departure Departure Disposition: Home Clinical Impression: Chest pain, Hypertension Condition: Good Critical Care Time: No Referrals: JEREMIAH MARTIN MD [Primary Care Provider] - Follow up/PCP as directed Instructions: Chest Pain (DC), High Blood Pressure Emergencies Additional Instructions: Follow-up with your doctor today to continue evaluating your symptoms and modifying your risk factors accordingly. Return to the nearest emergency department if you have any worsening chest pain, new shortness of breath, new productive cough, any fever, new abdominal pain, new back pain or any other concerning signs or symptoms that were not present at today's emergency room visit for immediate reevaluation in the nearest emergency department
[2021-09-13 03:32] LABS: Absolute Neutrophil Ct (ANC) 14.13 x10^3/uL (1.4-6.9); Basophil (Absolute #) 0.01 x10^3/uL (0-0.4); Eosinophil (Absolute #) 0 x10^3/uL (0-0.5); Hematocrit 45.2 % (42-50); Hemoglobin 14.4 g/dL (12.5-18.0); Lymphocyte (Absolute #) 1.64 x10^3/uL (1.0-4.6); Lymphocytes % 9.7 % (24.0-44.0); Mean Cell Volume 90.2 fL (78-100); Mean Corpuscular Hemoglobin 28.7 pg (26-32); Mean Corpuscular Hgb Concent. 31.9 g/dL (32-36); Mean Platelet Volume 11.9 fL (7.5-11.0); Monocyte (Absolute #) 1.02 x10^3/uL (0.0-1.3); Neutrophil % 83.7 % (36.0-66.0); Platelet Count 262 x10^3/uL (150-450); Red Blood Count 5.01 x10^6/uL (4.1-5.6); Red Cell Distribution Width 13.9 % (11.5-14.0); White Blood Count 16.9 x10^3/uL (4.0-10.5)
[2021-09-13 03:41] LABS: D-DIMER QUANTITATIVE 0.27 ng/mL (0.0-0.50); INR 0.97 (0.8-3.0); PROTIME 10.3 SECONDS (9.4-12.5)
[2021-09-13] MEDS ORDERED: MORPHINE SULFATE 4 MG INJ ONE (03:44)
[2021-09-13] MEDS ORDERED: Sodium Chloride 0.9% 1000 ML 1,000 ML ONE (03:45)
[2021-09-13 03:50] LABS: SGPT/ALT 34 U/L (0-50)
[2021-09-13 03:52] LABS: ALBUMIN 4.3 g/dL (3.5-5.0); ALKALINE PHOSPHATASE 64 U/L (38-126); ANION GAP 17.7 MEQ/L (5-15); BLOOD UREA NITROGEN 27 mg/dL (9-20); CHLORIDE 101 mmol/L (98-107); CK-Creatinine Phosphokinase 96 U/L (55-170); Calcium 9.1 mg/dL (8.4-10.2); Carbon Dioxide 22 mmol/L (22-30); Creatinine 1 1.06 mg/dL (0.66-1.25); EST GLOMERULAR FILTRATION RATE > 60.0 ML/MIN; Glucose 382 mg/dL (74-106); LIPASE 158 U/L (23-300); NT PRO BNP 91.6 pg/mL (0-450); Potassium 4.3 mmol/L (3.5-5.1); SGOT/AST 23 U/L (17-59); SODIUM 137 mmol/L (137-145); Total Protein 6.9 g/dL (6.3-8.2)
[2021-09-13 07:09] LABS: Amphetamine,Urine NEGATIVE (NEGATIVE); Barbiturate,Urine NEGATIVE (NEGATIVE); Benzodiazepine,Urine NEGATIVE (NEGATIVE); Cocaine,Urine NEGATIVE (NEGATIVE); Methadone,Urine NEGATIVE (NEGATIVE); Opiate,Urine POSITIVE (NEGATIVE); PCP,Urine NEGATIVE (NEGATIVE); THC,Urine NEGATIVE (NEGATIVE)
[2021-09-13 07:44] VITALS: BP 149/76; PULSE 78; O2SAT 99
--- NOTE | 2021-09-13 09:00 | XRAY ---
Indication: Chest pain. Comparison: One day earlier. Portable chest continues to demonstrate normal heart, lungs, and bony thorax.
== END 2021-09-13 07:41 | disposition home or self-care (01) ==
LOC: ED 03:08
DX: R07.9 Chest pain, unspecified (principal); I10 Essential (primary) hypertension; E78.5 Hyperlipidemia, unspecified; I25.2 Old myocardial infarction; E11.9 Type 2 diabetes mellitus without complications; K21.9 Gastro-esophageal reflux disease without esophagitis; Z79.4 Long term (current) use of insulin; Z79.891 Long term (current) use of opiate analgesic; Z79.899 Other long term (current) drug therapy
CPT/HCPCS: 36000; 36415; 71045; 80053; 80307; 82550; 83690; 83880; 84484; 85025; 85379; 85610; 93005; 93041; 94760; 99284; J2270; A9270-GY

== ENCOUNTER 2021-12-21 06:46 | Day surgery (SDC) | payer OTHER ==
[~2021-12-21 06:46] MED LIST changes: -BUPIVACAINE 0.5% VIAL IJ ONE; +Marcaine Mpf 0.5% Vial 30 Ml ONE
[2021-12-21] MEDS ORDERED: Versed 2 MG/2 ML Injection IV PRN (07:04)
[2021-12-21] MEDS ORDERED: Pepcid 20 MG VIAL IV ONE ×2 (07:04→07:08)
[2021-12-21] MEDS ORDERED: Xopenex 1.25 MG/0.5 ML UD NEBULE IH ONE ×2 (07:04→07:57)
[2021-12-21] MEDS ORDERED: Reglan 10 MG/2 ML IV ONE (07:04)
[2021-12-21] MEDS ORDERED: Reglan 10 MG/2 ML ONE (07:08)
[2021-12-21] MEDS ORDERED: Lactated Ringers 1,000 ML IV ONE (07:08)
[2021-12-21] MEDS ORDERED: CEFAZOLIN 2 GM-D5W BAG** 2 GM/50 ML ML IV ONE (07:08)
[2021-12-21] MEDS ORDERED: Versed 2 MG/2 ML Injection ONE ×2 (07:08→10:04)
[2021-12-21] MEDS ORDERED: Lactated Ringers 1,000 ML IV SCH (07:30)
[2021-12-21] MEDS ORDERED: CEFAZOLIN 2 GM-D5W BAG** 2 GM/50 ML ML IV SCH (07:30)
[2021-12-21 07:51] LABS: ALBUMIN 4.3 g/dL (3.5-5.0); ALKALINE PHOSPHATASE 40 U/L (38-126); ANION GAP 12.1 MEQ/L (5-15); BLOOD UREA NITROGEN 15 mg/dL (9-20); CHLORIDE 104 mmol/L (98-107); Calcium 9.5 mg/dL (8.4-10.2); Carbon Dioxide 27 mmol/L (22-30); Creatinine 1 0.91 mg/dL (0.66-1.25); EST GLOMERULAR FILTRATION RATE > 60.0 ML/MIN; Glucose 115 mg/dL (74-106); SGOT/AST 31 U/L (17-59); SGPT/ALT 32 U/L (0-50); SODIUM 139 mmol/L (137-145); Total Protein 6.6 g/dL (6.3-8.2)
[2021-12-21] MEDS ORDERED: Sodium Chloride 3 ML UD NEBULES IH ONE (07:58)
[2021-12-21] MEDS ORDERED: DIPRIVAN 200 MG/20 ML IV ONE (10:04)
[2021-12-21] MEDS ORDERED: Zemuron 100 MG/10 ML ONE (10:04)
[2021-12-21] MEDS ORDERED: Epinephrine Preservative Free 1 MG/ML ONE (10:49)
[2021-12-21] MEDS ORDERED: Naropin 0.5% 30 ML VIAL ONE (13:01)
[2021-12-21] MEDS ORDERED: Marcaine 0.5%/Epinephrine 10 ML ONE (13:01)
[2021-12-21] MEDS ORDERED: BRIDION 200MG/2ML IV ONE (13:02)
--- NOTE | 2021-12-21 13:18 | XRAY ---
Indication: Left ankle subtalar arthrodesis. Intraoperative fluoroscopy provided for 2 minutes and 20 seconds. 17 digital spot images ultimately demonstrates talocalcaneal fusion with 2 fixation screws traversing. Correlate with intraoperative findings/report.
[2021-12-21 13:34] LABS: Mucus SLIGHT /HPF (NEGATIVE); RBC 0-2 /HPF (0-2)
[2021-12-21 13:36] LABS: Appearance CLEAR (CLEAR); Bilirubin NEGATIVE (NEGATIVE); Dipstick done @ ? MAIN LAB; Glucose NEGATIVE (NEGATIVE); Ketones NEGATIVE (NEGATIVE); Nitrite NEGATIVE (NEGATIVE); Protein,Urine Dip NEGATIVE (Negative); RBC NEGATIVE Ery/ul (0-5); Specific Gravity 1.025 (1.005-1.025); Urobilinogen 0.2 mg/dL (0-1)
--- NOTE | 2021-12-21 13:38 | XRAY ---
2 minutes and 20 seconds fluoroscopy time in surgery for left ankle arthrodesis.
[2021-12-21] MEDS ORDERED: Compazine 10 MG/2 ML ONE (13:45)
[2021-12-21] MEDS ORDERED: Hydromorphone 1 mg/ml Injection ONE ×2 (13:48→14:08)
[2021-12-21] MEDS ORDERED: SUBLIMAZE 100 MCG/2 ML ONE (13:48)
[2021-12-21] MEDS ORDERED: TORAdol 30 mg Injection ONE (14:08)
[2021-12-21 15:36] VITALS: BP 152/72; PULSE 88; O2SAT 94
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
== END 2021-12-21 16:10 | disposition home or self-care (01) ==
LOC: SDC 06:46
PROVIDERS: ATTEND Podiatrist Foot & Ankle Surgery
DX: M21.6X2 Other acquired deformities of left foot (principal); M19.072 Primary osteoarthritis, left ankle and foot; M25.572 Pain in left ankle and joints of left foot; M24.672 Ankylosis, left ankle; M25.872 Other specified joint disorders, left ankle and foot; E11.9 Type 2 diabetes mellitus without complications
CPT/HCPCS: 36415; 64450; 73610; 76000; 76937; 76942; 80053; 81001; 82947; 87086; 93005; 94640; J0171; J0690; J1170; J1885; J2250; J2704; J2795; J3010; A9270-GY

== ENCOUNTER 2022-04-29 09:15 | Day surgery (SDC) | payer OTHER ==
--- NOTE | 2022-04-22 08:08 | HP ---
DATE OF SURGERY: 04/29/2022 HISTORY OF PRESENT ILLNESS: The patient is a 46-year-old had diverticulitis, nonsensation. No prior EGD. Question whether he had some reflux. PAST MEDICAL HISTORY: Hypertension. Heart disease. Diabetes. PAST SURGICAL HISTORY: Ankle/foot surgery in the past, two other foot surgeries. Finger surgery in the past. He had laparoscopic-assisted partial colectomy in the past. Heart cath in the past. MEDICATIONS: Includes Crestor, Nexium, aspirin, Chlorthalidone, Diovan, metoprolol, metformin, hydrocodone, Nitrostat PRN. Brilinta in the past, Basaglar, Zetia, Ozempic. ALLERGIES: SULFAMETHOXAZOLE. TRIMETHOPRIM (BACTRIM). FAMILY HISTORY: Negative for esophageal cancer. SOCIAL HISTORY: Half pack per day smoker, denies alcohol abuse. REVIEW OF SYSTEMS: Fourteen systems reviewed pertinent for as noted above. PHYSICAL EXAMINATION: GENERAL: No acute distress. HEENT: Sclerae nonicteric. NECK: No JVD. CHEST: Equal excursion. CVS: Regular rate and rhythm. ABDOMEN: Soft. No peritoneal signs. EXTREMITIES: No significant edema. NEURO: Alert, oriented, moving extremities symmetrically. PSYCH: Appropriate mood and affect. IMPRESSION: Question of reflux. I feel the patient will benefit from upper endoscopy possible biopsy to evaluate for esophagitis, gastritis, peptic ulcer disease or other etiology. General risk of bleeding or infection, risk of bowel injury or perforation possibly requiring open procedure, risk of missed or nondiagnosis or incomplete exam possibly requiring barium swallow, other studies or procedures. General risk of anesthesia or sedation, risk of missed or no diagnosis or possible need for other procedures. He understands and agrees to the planned procedure and will proceed with EGD with possible biopsy as an outpatient.
[2022-04-29] MEDS ORDERED: Lactated Ringers 1,000 ML IV SCH (09:30)
[2022-04-29] MEDS ORDERED: DUONEB 0.5-3 MG/3 ml Neb IH ONE ×2 (10:35→10:41)
[2022-04-29] MEDS ORDERED: Versed 2 MG/2 ML Injection ONE (13:07)
[2022-04-29] MEDS ORDERED: DIPRIVAN 200 MG/20 ML IV ONE ×2 (13:07→13:20)
[2022-04-29 14:24] VITALS: BP 145/96; PULSE 70; O2SAT 95
--- NOTE | 2022-04-30 07:57 | OP ---
SURGERY DATE/TIME: 04/29/2022 1310 PREOPERATIVE DIAGNOSIS: History of some increased reflux, need for upper endoscopy to evaluate for esophagitis, peptic ulcer disease, gastritis or other etiology. POSTOPERATIVE DIAGNOSES: 1) ASA Class 3. 2) Minimal to mild gastritis. PROCEDURES: 1) EGD with cold biopsy of small bowel to evaluate for celiac sprue. 2) Cold biopsy of inflammation of gastric body to evaluate for histology. 3) Cold biopsy of distal mid esophagus to evaluate for eosinophilic esophagitis. SURGEON: Dr. Norris Palmer. ANESTHESIA: MAC. ESTIMATED BLOOD LOSS: Minimal. INDICATIONS: As noted above. Risks and benefits explained in detail and not limited to and consent obtained. DESCRIPTION OF PROCEDURE AND FINDINGS: The patient is taken to the endoscopy room. MAC anesthesia introduced. After official time out and no disagreement with planned procedure, a bite block positioned. Video gastroscope easily passed down the esophagus through the pylorus to the third and fourth portion of duodenum. Third, second and first portion of duodenum grossly unremarkable. No signs of any ulcers, masses, lesions or significant inflammation. Cold biopsy is taken to evaluate for celiac sprue and to rule out other causes of his symptoms. The scope pulled back into the stomach some minimal to mild gastric erythema and the antrum and the gastric body were biopsied to evaluate for Helicobacter pylori. Good hemostasis noted. The scope was then carefully retroflexed. There were no signs of any significant hiatal hernia on retroflex. The scope is pulled back. Gastroesophageal junction 41 cm. There is just a 1 mm part of the salmon-pink mucosa increasing up on the esophageal side whether this is just a normal variation or not, some cold biopsies are taken of this area for further evaluation but there was no evidence of any long segments of Marcus's. There were no signs of any erosions. No signs of any significant inflammation on the esophagus side. Good hemostasis noted with the biopsies of this area in the distal esophagus. The scope is pulled back up into the esophagus, some random cold biopsies taken to evaluate for eosinophilic esophagitis and to rule out other causes of his symptoms. Otherwise, the scope is carefully withdrawn. No signs of any obvious masses, ulcers or lesions. The scope is withdrawn. There were no immediate complications. There was no family here to discuss the findings with. I will see him back in the office in a week or two to go over the results.
== END 2022-04-29 14:25 | disposition home or self-care (01) ==
LOC: SDC 09:15
PROVIDERS: ATTEND Surgery
DX: K29.70 Gastritis, unspecified, without bleeding (principal); K21.9 Gastro-esophageal reflux disease without esophagitis; E11.9 Type 2 diabetes mellitus without complications
CPT/HCPCS: 82947; 88305; 94640; J2250; J2704; A9270-GY

== ENCOUNTER 2022-05-08 13:20 | Emergency (ER) | payer OTHER ==
--- NOTE | 2022-05-08 14:27 | ERPHSYRPT ---
- History of Present Illness Time Seen by Provider: 05/08/22 14:27 Historian: patient Exam Limitations: no limitations Physician History: This is an obese 46-year-old white male who has had diverticulitis in the past requiring bowel resection. He presents with initially having diarrhea for the first few days of his symptoms and now in the last few days he has had cons tipation with a feeling of fullness and mild infraumbilical bilateral lower quadrant discomfort. Patient has a history of insulin-dependent diabetes, gastroesophageal reflux disease, hyperlipidemia and hypertension. Patient did use a stool softener and milk of magnesia without benefit. He denies chest pain. He denies shortness of breath. He has not had any fevers. He has not had any vomiting Activities at Onset: none Quality: pressure Abdominal Pain Onset Location: RLQ, LLQ, other Pain Radiation: no radiation (Infraumbilical) Severity of Pain-Max: mild Severity of Pain-Current: none Associated Symptoms: other (The patient) Previous symptoms: no prior history Allergies/Adverse Reactions: sulfamethoxazole [From Bactrim] Adverse Reaction (Verified 05/08/22 14:33) thrush trimethoprim [From Bactrim] Adverse Reaction (Verified 05/08/22 14:33) thrush Home Medications: Hydrocodone/Acetaminophen [Frost 10-325 Tablet] 10 mg PO QID PRN 02/26/20 [History] Metformin HCl 500 mg PO BID 02/26/20 [History] Esomeprazole Magnesium [Nexium] 40 mg PO DAILY 06/09/20 [History] Chlorthalidone 12.5 mg PO DAILY 11/06/20 [History] Isosorbide Mononitrate 30 mg [Imdur 30 MG] 60 mg PO DAILY 11/06/20 [History] Metoprolol Tartrate 25 mg [Lopressor 25MG Tab] 25 mg PO BID 11/06/20 [History] Insulin Glargine,Hum.rec.anlog [Basaglar Kwikpen U-100] 30 units SQ DAILY 09/13/21 [History] Valsartan 80 mg PO DAILY 12/06/21 [History] Ezetimibe 10 mg [Zetia 10 MG] 10 mg PO DAILY 04/12/22 [History] Rosuvastatin Calcium 40 mg PO DAILY 04/12/22 [History] Semaglutide [Ozempic] 0.25 mg SQ WEEKLY 04/12/22 [History] Hx Tetanus, Diphtheria Vaccination/Date Given: Yes Hx Influenza Vaccination/Date Given: No Hx Pneumococcal Vaccination/Date Given: No Travel Risk - International Travel Have you traveled outside of the country in past 3 weeks: No - Coronavirus Screening Are you exhibiting any of the following symptoms?: No Close contact with a COVID-19 positive Pt in past 14-21 Days: No - Vaccine Status Have you recieved a Covid-19 vaccination: No - Review of Systems Constitutional: No Symptoms Eyes: No Symptoms Ears, Nose, & Throat: No Symptoms Respiratory: No Symptoms Cardiac: No Symptoms Abdominal/Gastrointestinal: Abdominal Pain, Constipation, No Nausea, No Vomiting, No Diarrhea Genitourinary Symptoms: No Symptoms Musculoskeletal: No Symptoms Skin: No Symptoms Neurological: No Symptoms Psychological: No Symptoms Endocrine: No Symptoms Hematologic/Lymphatic: No Symptoms Immunological/Allergic: No Symptoms All Other Systems: Reviewed and Negative - Past Medical History Pertinent Past Medical History: Yes Neurological History: No Pertinent History ENT History: No Pertinent History Cardiac History: Hypertension, Myocardial Infarction (NH) Respiratory History: COPD Endocrine Medical History: Diabetes Type II Musculoskeletal History: Osteoarthritis GI Medical History: Diverticulitis, GERD History: No Pertinent History Psycho-Social History: Anxiety, Depression Male Reproductive Disorders: No Pertinent History Other Medical History: PAST FUSION OF L ANKLE IN 2018, METAL REMOVED IN May. MOST RECENT FUSION . - Past Surgical History Past Surgical History: Yes Neuro Surgical History: No Pertinent History Cardiac: No Pertinent History Respiratory: No Pertinent History Gastrointestinal: Bowel Surgery, Other Genitourinary: No Pertinent History Musculoskeletal: Orthopedic Surgery Male Surgical History: No Pertinent History Other Surgical History: L foot, partial intestine removed, right ring finger - Social History Smoking Status: Current every day smoker How long have you smoked: age 15 Exposure to second hand smoke: No Drug Use: none Patient Lives Alone: Yes - Nursing Vital Signs Nursing Vital Signs: Initial Vital Signs Temperature 97.7 F 05/08/22 14:19 Pulse Rate 87 05/08/22 14:19 Blood Pressure 137/72 05/08/22 14:19 O2 Sat by Pulse Oximetry 99 05/08/22 14:19 Pain Scale Pain Intensity 2 - Physical Exam General Appearance: no apparent distress, alert, anxiety, obese Eye Exam: PERRL/EOMI, eyes nml inspection Ears, Nose, Throat Exam: normal ENT inspection, moist mucous membranes Neck Exam: normal inspection, non-tender, supple, full range of motion Respiratory Exam: normal breath sounds, lungs clear, airway intact, No chest tenderness, No respiratory distress Cardiovascular Exam: regular rate/rhythm, normal heart sounds, normal peripheral pulses Gastrointestinal/Abdomen Exam: soft, normal bowel sounds, tenderness (Very mild to palpation infraumbilical bilateral lower quadrants), guarding, No rebound Rectal Exam: not done Back Exam: normal inspection, normal range of motion, No CVA tenderness, No vertebral tenderness Extremity Exam: normal inspection, normal range of motion, pelvis stable Neurologic Exam: alert, oriented x 3, cooperative, 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 II-XII nml as tested, normal mood/affect, nml cerebellar function, nml station & gait, sensation nml Skin Exam: normal color, warm, dry Lymphatic Exam: No adenopathy SpO2 Interpretation: normal O2 Delivery: Room Air - Course Nursing assessment & vital signs reviewed: Yes Ordered Tests: Active Orders 24 hr Category Date Time Status IV Insertion STAT Care 05/08/22 15:22 Active ABDOMEN AND PELVIS W/0 CONTRAS [CT] Stat Exams 05/08/22 15:22 Completed AMYLASE Stat Lab 05/08/22 15:55 Completed CBC W DIFF Stat Lab 05/08/22 15:55 Completed CMP Stat Lab 05/08/22 15:55 Completed LIPASE Stat Lab 05/08/22 15:55 Completed Lactic Acid Stat Lab 05/08/22 15:22 Completed UA W/RFX UR CULTURE Stat Lab 05/08/22 16:26 Completed Medication Summary Discontinued Medications Generic Name Dose Route Start Last Admin Trade Name Freq PRN Reason Stop Dose Admin Hydromorphone HCl 1 mg 05/08/22 15:22 Hydromorphone 1 Mg/1ml Inj 1 Mg/Ml Syringe IV 05/08/22 15:23 STAT ONE Sodium Chloride 1,000 mls @ 999 mls/hr 05/08/22 15:22 Sodium Chloride 0.9% 1000 Ml IV 05/08/22 16:22 .Q1H1M STA Ondansetron HCl 4 mg 05/08/22 15:22 Ondansetron Hcl 4 Mg/2 Ml Vial IV 05/08/22 15:23 STAT ONE Lab/Rad Data: Laboratory Result Diagrams 05/08/22 15:55 05/08/22 15:55 Laboratory Results 05/08/22 05/08/22 05/08/22 Range/Units 16:26 15:55 15:55 WBC 12.2 H (4.0-10.5) x10^3/uL RBC 5.67 H (4.1-5.6) x10^6/uL Hgb 15.7 (12.5-18.0) g/dL Hct 49.0 (42-50) % MCV 86.4 (78-100) fL MCH 27.7 (26-32) pg MCHC 32.0 (32-36) g/dL RDW 14.6 H (11.5-14.0) % Plt Count 269 (150-450) x10^3/uL MPV 12.1 H (7.5-11.0) fL Gran % 65.5 (36.0-66.0) % Immature Gran % (Auto) 0.2 (0.00-0.4) % Nucleat RBC Rel Count 0.0 (0.00-0.1) % Eos # (Auto) 0.18 (0-0.5) x10^3/uL Immature Gran # (Auto) 0.03 (0.00-0.03) x10^3u/L Absolute Lymphs (auto) 3.27 (1.0-4.6) x10^3/uL Absolute Monos (auto) 0.71 (0.0-1.3) x10^3/uL Absolute Nucleated RBC 0.00 (0.00-0.01) x10^3u/L Lymphocytes % 26.7 (24.0-44.0) % Monocytes % 5.8 (0.0-12.0) % Eosinophils % 1.5 (0.00-5.0) % Basophils % 0.3 (0.0-0.4) % Absolute Granulocytes 8.01 H (1.4-6.9) x10^3/uL Basophils # 0.04 (0-0.4) x10^3/uL Sodium 139 (137-145) mmol/L Potassium 4.2 (3.5-5.1) mmol/L Chloride 101 (98-107) mmol/L Carbon Dioxide 30 (22-30) mmol/L Anion Gap 12.3 (5-15) MEQ/L BUN 12 (9-20) mg/dL Creatinine 0.88 (0.66-1.25) mg/dL Estimated GFR > 60.0 ML/MIN Glucose 92 (74-106) mg/dL Lactic Acid (0.4-2.0) Calcium 9.4 (8.4-10.2) mg/dL Total Bilirubin 0.40 (0.2-1.3) mg/dL AST 26 (17-59) U/L ALT 30 (0-50) U/L Alkaline Phosphatase 45 (38-126) U/L Serum Total Protein 7.9 (6.3-8.2) g/dL Albumin 4.6 (3.5-5.0) g/dL Amylase 79 (30-110) U/L Lipase 69 (23-300) U/L Urine Color Yellow (Yellow) Urine Appearance Clear (Clear) Urine pH 7.5 (4.6-8.0) Ur Specific Paia 1.020 (1.005-1.030) Urine Protein Negative (Negative) Urine Glucose (UA) Negative (Negative) mg/dL Urine Ketones Negative (Negative) Urine Blood Negative (Negative) Urine Nitrite Negative (Negative) Urine Bilirubin Negative (Negative) Urine Urobilinogen 0.2 (0.2) mg/dL Ur Leukocyte Esterase Negative (Negative) U Hyaline Cast (Auto) None Seen (0-2) /LPF Urine Microscopic RBC 0-2 (0-5) /HPF Urine Microscopic WBC 0-2 (0-5) /HPF Ur Epithelial Cells None Seen (None Seen) /HPF Urine Bacteria None Seen (None Seen) /HPF Urine Culture Reflexed NO (NO) 05/08/22 Range/Units 15:22 WBC (4.0-10.5) x10^3/uL RBC (4.1-5.6) x10^6/uL Hgb (12.5-18.0) g/dL Hct (42-50) % MCV (78-100) fL MCH (26-32) pg MCHC (32-36) g/dL RDW (11.5-14.0) % Plt Count (150-450) x10^3/uL MPV (7.5-11.0) fL Gran % (36.0-66.0) % Immature Gran % (Auto) (0.00-0.4) % Nucleat RBC Rel Count (0.00-0.1) % Eos # (Auto) (0-0.5) x10^3/uL Immature Gran # (Auto) (0.00-0.03) x10^3u/L Absolute Lymphs (auto) (1.0-4.6) x10^3/uL Absolute Monos (auto) (0.0-1.3) x10^3/uL Absolute Nucleated RBC (0.00-0.01) x10^3u/L Lymphocytes % (24.0-44.0) % Monocytes % (0.0-12.0) % Eosinophils % (0.00-5.0) % Basophils % (0.0-0.4) % Absolute Granulocytes (1.4-6.9) x10^3/uL Basophils # (0-0.4) x10^3/uL Sodium (137-145) mmol/L Potassium (3.5-5.1) mmol/L Chloride (98-107) mmol/L Carbon Dioxide (22-30) mmol/L Anion Gap (5-15) MEQ/L BUN (9-20) mg/dL Creatinine (0.66-1.25) mg/dL Estimated GFR ML/MIN Glucose (74-106) mg/dL Lactic Acid 1.1 (0.4-2.0) Calcium (8.4-10.2) mg/dL Total Bilirubin (0.2-1.3) mg/dL AST (17-59) U/L ALT (0-50) U/L Alkaline Phosphatase (38-126) U/L Serum Total Protein (6.3-8.2) g/dL Albumin (3.5-5.0) g/dL Amylase (30-110) U/L Lipase (23-300) U/L Urine Color (Yellow) Urine Appearance (Clear) Urine pH (4.6-8.0) Ur Specific Paia (1.005-1.030) Urine Protein (Negative) Urine Glucose (UA) (Negative) mg/dL Urine Ketones (Negative) Urine Blood (Negative) Urine Nitrite (Negative) Urine Bilirubin (Negative) Urine Urobilinogen (0.2) mg/dL Ur Leukocyte Esterase (Negative) U Hyaline Cast (Auto) (0-2) /LPF Urine Microscopic RBC (0-5) /HPF Urine Microscopic WBC (0-5) /HPF Ur Epithelial Cells (None Seen) /HPF Urine Bacteria (None Seen) /HPF Urine Culture Reflexed (NO) - Progress Progress: improved, pain not gone completely, re-examined Progress Note: 05/08/22 17:01 CT scan of the abdomen pelvis without contrast comparison film 08/13/2021. There is no evidence of bowel obstruction. There is no evidence of any inflammatory process of the bowels. There is a slowly enlarging left mid renal cyst and the left upper renal hypodense exophytic mass. These findings were discussed with the patient. 05/08/22 18:18 Medical decision making: This patient has history of diverticulitis requiring bowel resection. He started out early portion of his most recent symptoms with diarrhea and now has constipation. Patient does have leukocytosis with a white count greater than 12,000 with a left shift. I do not think it is unreasonable to place this patient on Cipro and Flagyl given his history of diverticulitis, his current symptoms and the evidence of leukocytosis on his lab work. I did review the CT scan results with the patient he will follow-up with his primary care provider. Counseled pt/family regarding: lab results, diagnosis, need for follow-up, rad results - Departure Departure Disposition: Home Clinical Impression: Renal cyst, left, Left renal mass, Abdominal pain Condition: Stable Critical Care Time: No Referrals: JACKIE ROMERO [facility] [Primary Care Provider] - Follow up/PCP as directed Additional Instructions: Drink plenty of fluids. Advance your diet slowly to your usual diet. Take your antibiotics as prescribed. Prescriptions: Ciprofloxacin [Cipro 500 MG] 500 mg PO BID #14 tablet Metronidazole 500 mg [Flagyl 500 MG] 500 mg PO TID #21 tablet
[2022-05-08 14:33] VITALS: PULSE 87; O2SAT 99
[2022-05-08] MEDS ORDERED: Sodium Chloride 0.9% 1000 ML 1,000 ML IV STA (15:22)
[2022-05-08] MEDS ORDERED: Zofran 4 MG/2 ML VIAL IV ONE (15:22)
[2022-05-08] MEDS ORDERED: Hydromorphone 1 mg/ml Injection IV ONE (15:22)
[2022-05-08 16:04] LABS: Absolute Neutrophil Ct (ANC) 8.01 x10^3/uL (1.4-6.9); Basophil (Absolute #) 0.04 x10^3/uL (0-0.4); Eosinophil % 1.5 % (0.00-5.0); Eosinophil (Absolute #) 0.18 x10^3/uL (0-0.5); Hemoglobin 15.7 g/dL (12.5-18.0); Lymphocyte (Absolute #) 3.27 x10^3/uL (1.0-4.6); Lymphocytes % 26.7 % (24.0-44.0); Mean Cell Volume 86.4 fL (78-100); Mean Corpuscular Hemoglobin 27.7 pg (26-32); Mean Platelet Volume 12.1 fL (7.5-11.0); Monocyte (Absolute #) 0.71 x10^3/uL (0.0-1.3); Monocytes % 5.8 % (0.0-12.0); Neutrophil % 65.5 % (36.0-66.0); Platelet Count 269 x10^3/uL (150-450); Red Blood Count 5.67 x10^6/uL (4.1-5.6); Red Cell Distribution Width 14.6 % (11.5-14.0); White Blood Count 12.2 x10^3/uL (4.0-10.5)
[2022-05-08 16:17] LABS: ALBUMIN 4.6 g/dL (3.5-5.0); ALKALINE PHOSPHATASE 45 U/L (38-126); AMYLASE 79 U/L (30-110); ANION GAP 12.3 MEQ/L (5-15); BLOOD UREA NITROGEN 12 mg/dL (9-20); CHLORIDE 101 mmol/L (98-107); Calcium 9.4 mg/dL (8.4-10.2); Carbon Dioxide 30 mmol/L (22-30); Creatinine 1 0.88 mg/dL (0.66-1.25); EST GLOMERULAR FILTRATION RATE > 60.0 ML/MIN; Glucose 92 mg/dL (74-106); LIPASE 69 U/L (23-300); Potassium 4.2 mmol/L (3.5-5.1); SGOT/AST 26 U/L (17-59); SGPT/ALT 30 U/L (0-50); SODIUM 139 mmol/L (137-145); Total Protein 7.9 g/dL (6.3-8.2)
--- NOTE | 2022-05-08 16:28 | XRAY ---
Indication: Abdomen pain. History diverticulitis. Multiple contiguous axial images obtained through the abdomen and pelvis without contrast. Comparison: July 04, 2019 Lung bases again demonstrates a few tiny left base calcified granulomas. Heart not enlarged. Noncontrasted stomach and bowel loops nonobstructed again with normal appendix. Pelvic small bowel loops and sigmoid colon demonstrates interval resection with intact anastomosis. No free fluid/air. Left mid kidney demonstrates 4.8 cm cyst, previously 3.3 cm. Left upper kidney demonstrates 3.3 cm well-circumscribed hyperdense exophytic renal mass, previously 2.8 cm. Remaining liver, gallbladder, pancreas, spleen, adrenal glands, kidneys, ureters, and bladder are unremarkable for noncontrast exam. Again mild aortoiliac calcifications without AAA. Osseous structures intact again with lower lumbar degenerative changes. Impression: 1. Interval small and large bowel resection without complications. 2. Enlarging left mid renal cyst and left upper renal hyperdense exophytic mass with measurements above. Both have slowly enlarged since first exam July 28, 2017. MRI with contrast may yield further information. 3. Again chronic findings including arteriosclerotic disease, degenerative spondylosis, and old granulomatous disease. 4. Remaining CT abdomen/pelvis without contrast exam is negative.
[2022-05-08 17:45] LABS: Appearance Clear (Clear); Bacteria None Seen /HPF (None Seen); Bilirubin Negative (Negative); Blood Negative (Negative); Epithelial Cells None Seen /HPF (None Seen); Glucose, Urine Negative (Negative); Ketones Negative (Negative); Leukocyte Esterase Negative (Negative); Nitrite Negative (Negative); Ph 7.5 (4.6-8.0); Protein,Urine Dip Negative (Negative); RBC 0-2 /HPF (0-5); Urobilinogen 0.2 mg/dL (0.2); WBC 0-2 /HPF (0-5)
[2022-05-08 17:46] LABS: ADD URINE CULTURE? NO (NO); Hyaline Casts None Seen /LPF (0-2)
[2022-05-08] MEDS ORDERED: Flagyl 500 MG PO ONE (18:21)
[2022-05-08] MEDS ORDERED: Levofloxacin 500 MG Tablet PO ONE (18:21)
[2022-05-08 18:37] VITALS: BP 135/78
[2022-05-08] MEDS ORDERED: Flagyl 500 MG ONE (18:39)
[2022-05-08] MEDS ORDERED: Levofloxacin 500 MG Tablet ONE (18:39)
== END 2022-05-08 18:46 | disposition home or self-care (01) ==
LOC: ED 13:20
DX: N28.1 Cyst of kidney, acquired (principal); N28.89 Other specified disorders of kidney and ureter; R10.31 Right lower quadrant pain; R10.32 Left lower quadrant pain; K59.00 Constipation, unspecified; E11.9 Type 2 diabetes mellitus without complications; E78.5 Hyperlipidemia, unspecified; I10 Essential (primary) hypertension; Z79.84 Long term (current) use of oral hypoglycemic drugs; Z79.4 Long term (current) use of insulin; Z79.85 Long-term (current) use of injectable non-insulin antidiabetic drugs; Z79.899 Other long term (current) drug therapy; Z28.310 Unvaccinated for COVID-19; Z72.0 Tobacco use
CPT/HCPCS: 36415; 74176; 80053; 81001; 82150; 83605; 83690; 85025; 99284; A9270-GY

== ENCOUNTER 2023-02-24 07:24 | Day surgery (SDC) | payer OTHER ==
[2023-02-24] MEDS ORDERED: Lactated Ringers 1,000 ML IV ONE ×2 (07:25→08:38)
[2023-02-24] MEDS ORDERED: Lactated Ringers 1,000 ML IV SCH (08:30)
[2023-02-24 08:32] VITALS: RESP 16; TEMP 98
--- NOTE | 2023-02-24 09:17 | HP ---
DATE OF SURGERY: 02/24/2023 HISTORY OF PRESENT ILLNESS: The patient is a 47-year-old who is on Ozempic, had some loose stools, change in color. Ozempic stopped now. No bloody stools. No new pain. Family history of colon cancer. PAST MEDICAL HISTORY: Myocardial infarction, reflux, depression, diabetes mellitus type II, anxiety, diverticulitis, gastroesophageal reflux disease, hypertension, arthritis. PAST SURGICAL HISTORY: Left ankle fusion. MEDICATIONS: Diovan, isosorbide mononitrate, metoprolol, hydrochlorothiazide, Brilinta, atorvastatin, Chlorthalidone, aspirin, Pristiq, Nexium, Metformin. ALLERGIES: BACTRIM. FAMILY HISTORY: Stroke and heart disease. SOCIAL HISTORY: Smoker. REVIEW OF SYSTEMS: Fourteen systems reviewed. No chest pain or palpitations. Other systems negative or noncontributory as above and per preadmission questionnaire. PHYSICAL EXAMINATION: Height 6'1". BMI 37. GENERAL: No acute distress. HEENT: Sclerae nonicteric. EOMI. Oral mucous membranes moist. NECK: No JVD. CHEST: Equal excursion, nonlabored breathing. CVS: Regular rate and rhythm. ABDOMEN: Soft. No peritoneal signs. EXTREMITIES: No significant edema. NEURO: Alert, oriented, moving extremities symmetrically. RECTAL: Deferred timed to endoscopy exam. PSYCH: Appropriate mood and affect. SKIN: Dry. IMPRESSION: Change in bowel habits. He is in need of colonoscopy for further evaluation to evaluate for colitis or other etiology. Risk of bleeding or infection, risk of bowel injury or perforation, possibly requiring other procedure, risk of missed or nondiagnosis or incomplete exam possibly requiring other procedure or referral, risk of sedation, risk of bowel prep but not limited to. He understands all of the above. Continue medications for hypertension, heart disease, diabetes, anxiety, arthritis and reflux. Otherwise will proceed with outpatient colonoscopy under MAC anesthesia.
[2023-02-24] MEDS ORDERED: DIPRIVAN 200 MG/20 ML IV ONE ×2 (10:29→11:07)
[2023-02-24] MEDS ORDERED: Xylocaine-Mpf 2% 5 Ml Vial ONE (10:29)
[2023-02-24] MEDS ORDERED: Versed 2 MG/2 ML Injection ONE (10:29)
[2023-02-24] MEDS ORDERED: ROBINUL ONE (10:43)
[2023-02-24 11:36] VITALS: BP 125/77; PULSE 67; O2SAT 94
--- NOTE | 2023-02-24 15:13 | OP ---
SURGERY DATE/TIME: 02/24/2023 1104 PREOPERATIVE DIAGNOSIS: History of change in bowel habits, prior history of resection, partial colectomy in the past. POSTOPERATIVE DIAGNOSES: 1) Withdrawal time approximately nine minutes. 2) Diverticulosis left colon. 3) Fair but limited bowel prep. 4) Small early polyp versus hyperplastic lesion distal descending colon with the above prior anastomotic site. 5) ASA Class III. PROCEDURES: 1) Colonoscopy to terminal ileum. 2) Retrograde ileoscopy. 3) Random cold biopsy of ileum to evaluate for microscopic ileitis. 4) Random cold biopsy of colon to evaluate for microscopic colitis. 5) Hot biopsy polypectomy small early polyp versus hyperplastic lesion descending colon x2. SURGEON: Dr. Norris Palmer. ANESTHESIA: MAC. ESTIMATED BLOOD LOSS: Minimal. INDICATIONS: As noted above. Risks and benefits explained in detail but not limited to and consent was obtained. DESCRIPTION OF PROCEDURE AND FINDINGS: The patient is taken to the endoscopy room. MAC anesthesia induced. After official time out and no disagreement with planned procedure, digital rectal exam did not reveal any rectal masses. Video colonoscope inserted and passed up through the tortuous sigmoid, descending, transverse and ascending colon around to the cecum. Up through the terminal ileum retrograde ileoscopy was grossly unremarkable. Given his change in bowel habits, random cold biopsy taken in the ileum to evaluate for microscopic ileitis. Photo documented the appendiceal orifice and ileocecal valve. Prep overall was on the limited side. There was fair amount of liquidy semisolid stool and solid stool chunks limiting the exam for small lesions this is suctioned irrigated out as clear as possible but did slightly limit the exam. The scope is carefully withdrawn over the next nine minutes. No signs of any large polyps, masses or obstructing lesions. Some random cold biopsies taken in the colon to evaluate for microscopic colitis. Scope pulled back up. Just on the descending colon side apparent anastomosis, a couple small early polyps versus hyperplastic lesion removed with hot biopsy forceps hot biopsy polypectomy. Good hemostasis was noted. Otherwise no signs of any large polyps, masses or obstructing lesions. The scope is withdrawn. The patient tolerated the procedure well. There were no immediate complications.
== END 2023-02-24 11:40 | disposition home or self-care (01) ==
LOC: SDC 07:24
PROVIDERS: ATTEND Surgery
DX: K63.5 Polyp of colon (principal); R19.4 Change in bowel habit; Z90.49 Acquired absence of other specified parts of digestive tract; Z80.0 Family history of malignant neoplasm of digestive organs; E11.9 Type 2 diabetes mellitus without complications; K57.30 Diverticulosis of large intestine without perforation or abscess without bleeding
CPT/HCPCS: 82947; J2250; J2704

== ENCOUNTER 2023-02-28 21:56 | Emergency (ER) | payer OTHER ==
[2023-02-28] MEDS ORDERED: CLONIDINE 0.1 MG TABLET PO ONE (22:07)
[2023-02-28] MEDS ORDERED: Nitrostat 0.4 MG (ED) SL ONE ×2 (22:07→22:22)
[2023-02-28] MEDS ORDERED: BABY ASPIRIN 81 MG CHEW PO ONE (22:07)
[2023-02-28] MEDS ORDERED: NORVASC 5 MG PO ONE (22:07)
[2023-02-28] MEDS ORDERED: Sodium Chloride 0.9% 1000 ML 1,000 ML IV SCH (22:15)
[2023-02-28] MEDS ORDERED: BABY ASPIRIN 81 MG CHEW ONE (22:22)
[2023-02-28] MEDS ORDERED: CLONIDINE 0.1 MG TABLET ONE (22:23)
[2023-02-28] MEDS ORDERED: NORVASC 5 MG ONE (22:23)
[2023-02-28] MEDS ORDERED: Sodium Chloride 0.9% 1000 ML 1,000 ML ONE (22:23)
[2023-02-28 22:31] VITALS: TEMP 97.9
[2023-02-28 22:36] LABS: Absolute Neutrophil Ct (ANC) 5.09 x10^3/uL (1.4-6.9); BASOPHIL % 0.5 % (0.0-0.4); Basophil (Absolute #) 0.05 x10^3/uL (0-0.4); Eosinophil % 2.9 % (0.00-5.0); Eosinophil (Absolute #) 0.28 x10^3/uL (0-0.5); Hematocrit 45.6 % (42-50); Hemoglobin 14.7 g/dL (12.5-18.0); IMMATURE GRAN # 0.02 x10^3u/L (0.00-0.03); IMMATURE GRAN % 0.2 % (0.00-0.4); Lymphocytes % 33.3 % (24.0-44.0); Mean Cell Volume 89.2 fL (78-100); Mean Corpuscular Hemoglobin 28.8 pg (26-32); Mean Corpuscular Hgb Concent. 32.2 g/dL (32-36); Monocyte (Absolute #) 0.97 x10^3/uL (0.0-1.3); Monocytes % 10.1 % (0.0-12.0); Platelet Count 236 x10^3/uL (150-450); Red Blood Count 5.11 x10^6/uL (4.1-5.6); Red Cell Distribution Width 13.7 % (11.5-14.0); White Blood Count 9.6 x10^3/uL (4.0-10.5)
[2023-02-28 22:49] LABS: D-DIMER QUANTITATIVE 0.31 mg/L (0.0-0.50); INR 0.89 (0.8-3.0); PROTIME 9.8 SECONDS (9.4-12.5); PTT 29.3 SECONDS (25.1-36.5)
[2023-02-28 22:55] LABS: ALBUMIN 4.3 g/dL (3.5-5.0); ANION GAP 15.9 MEQ/L (5-15); BILIRUBIN,TOTAL 0.2 mg/dL (0.2-1.3); Calcium 9.3 mg/dL (8.4-10.2); Creatinine 1 1.1 mg/dL (0.66-1.25); EST GLOMERULAR FILTRATION RATE 83.8 ML/MIN; MAGNESIUM 1.9 mg/dL (1.6-2.3); NT PRO BNPII 26.7 pg/mL (<300); Potassium 4.5 mmol/L (3.5-5.1); Total Protein 7.3 g/dL (6.3-8.2)
[2023-02-28 23:05] VITALS: O2SAT 95
--- NOTE | 2023-03-01 00:44 | ERPHSYRPT ---
- History of Present Illness Time Seen by Provider: 02/28/23 22:25 Historian: patient Exam Limitations: no limitations Patient Subjective Stated Complaint: pt states he was walking to the bathroom when I began to feel funny. pt states he checked his blood pressure and it was 180/114. Triage Nursing Assessment: pt ambulated into the er; pt is axo x4; c/o hypertension; c/o chest pain; pt states sharp pain to middle of chest; pt denies pain that radiates; clear apical heart tone; clear lung sounds in all lobes; no respiratory distress present; skin PDW; hypertensive Physician History: Patient is a 47-year-old white male who presents with a complaint of elevated blood pressure to 189/89 at home he also complained of chest pain when walking to the bathroom or the bedroom. He also was short of breath with walking he had no nausea vomiting diaphoresis he did suffer a heart attack in August 2020. He has taken no aspirin or nitroglycerin today. His aspirin is being held because he recently had a colonoscopy and he has no nitroglycerin prescribed. Timing/Duration: today Activities at Onset: rest Quality: pressure, tightness Location: substernal Chest Pain Radiation: no radiation Severity of Pain-Max: moderate Severity of Pain-Current: mild Modifying Factors: Improves With: movement, rest Associated Symptoms: shortness of breath, No nausea, No vomiting, No palpitations, No diaphoresis Prior Chest Pain/Cardiac Workup: heart attack Nitro Today/Relief: no nitro taken today Aspirin Treatment Today: no aspirin today Allergies/Adverse Reactions: sulfamethoxazole [From Bactrim] Adverse Reaction (Verified 02/28/23 22:05) thrush trimethoprim [From Bactrim] Adverse Reaction (Verified 02/28/23 22:05) thrush Home Medications: Hydrocodone/Acetaminophen [[place] 10-325 Tablet] 10 mg PO QID PRN 02/26/20 [History] Metformin HCl 500 mg PO BID 02/26/20 [History] Esomeprazole Magnesium [Nexium] 40 mg PO DAILY 06/09/20 [History] Isosorbide Mononitrate 30 mg [Imdur 30 MG] 60 mg PO DAILY 11/06/20 [History] Metoprolol Tartrate 25 mg [Lopressor 25MG Tab] 25 mg PO BID 11/06/20 [History] Insulin Glargine,Hum.rec.anlog [Basaglar Kwikpen U-100] 30 units SQ DAILY 09/13/21 [History] Ezetimibe 10 mg [Zetia 10 MG] 10 mg PO DAILY 04/12/22 [History] Atorvastatin Calcium [Lipitor] 80 mg PO DAILY 02/17/23 [History] Desvenlafaxine Succinate [Pristiq] 50 mg PO DAILY 02/17/23 [History] Valsartan [Diovan] 160 mg PO DAILY 02/24/23 [History] Hx Tetanus, Diphtheria Vaccination/Date Given: No Hx Influenza Vaccination/Date Given: No Hx Pneumococcal Vaccination/Date Given: No Travel Risk - International Travel Have you traveled outside of the country in past 3 weeks: No - Coronavirus Screening Are you exhibiting any of the following symptoms?: No Close contact with a COVID-19 positive Pt in past 14-21 Days: No - Vaccine Status Have you recieved a Covid-19 vaccination: No - Review of Systems Constitutional: No Fever, No Chills Eyes: No Symptoms Ears, Nose, & Throat: No Symptoms Respiratory: Dyspnea, No Cough Cardiac: Chest Pain, No Edema, No Syncope Abdominal/Gastrointestinal: No Abdominal Pain, No Nausea, No Vomiting, No Diarrhea Genitourinary Symptoms: No Dysuria Musculoskeletal: No Back Pain, No Neck Pain Skin: No Rash Neurological: No Dizziness, No Focal Weakness, No Sensory Changes Psychological: No Symptoms Endocrine: No Symptoms All Other Systems: Reviewed and Negative - Past Medical History Pertinent Past Medical History: Yes Neurological History: No Pertinent History ENT History: No Pertinent History Cardiac History: Coronary Artery Disease, Hypertension, Myocardial Infarction ([place]) Respiratory History: COPD Endocrine Medical History: Diabetes Type II Musculoskeletal History: Osteoarthritis GI Medical History: Diverticulitis, GERD History: No Pertinent History Psycho-Social History: Anxiety, Depression Male Reproductive Disorders: No Pertinent History Other Medical History: PAST FUSION OF L ANKLE IN 2018, METAL REMOVED IN May. MOST RECENT FUSION . - Past Surgical History Past Surgical History: Yes Neuro Surgical History: No Pertinent History Cardiac: Cardiac Catheterization Respiratory: No Pertinent History Gastrointestinal: Bowel Surgery, Other Genitourinary: No Pertinent History Musculoskeletal: Orthopedic Surgery Male Surgical History: No Pertinent History Other Surgical History: L foot, partial intestine removed, right ring finger reattached - Social History Smoking Status: Current every day smoker How long have you smoked: age 15 Exposure to second hand smoke: No Drug Use: none Patient Lives Alone: No - Nursing Vital Signs Nursing Vital Signs: Initial Vital Signs Temperature 97.9 F 02/28/23 22:11 Pulse Rate 75 02/28/23 22:11 Respiratory Rate 10 L 02/28/23 22:11 Blood Pressure 189/89 02/28/23 22:11 O2 Sat by Pulse Oximetry 97 02/28/23 22:11 Pain Scale Pain Intensity 0 - Physical Exam General Appearance: mild distress, alert Eye Exam: PERRL/EOMI, eyes nml inspection Ears, Nose, Throat Exam: normal ENT inspection, moist mucous membranes Neck Exam: normal inspection, non-tender, supple, full range of motion Respiratory Exam: normal breath sounds, lungs clear, No respiratory distress Cardiovascular Exam: regular rate/rhythm, normal heart sounds Gastrointestinal/Abdomen Exam: soft, No tenderness, No mass Back Exam: normal inspection, No CVA tenderness, No vertebral tenderness Extremity Exam: normal inspection, normal range of motion Neurologic Exam: alert, oriented x 3, cooperative, normal mood/affect, sensation nml, No motor deficits Skin Exam: normal color, warm, dry SpO2 Interpretation: normal SpO2: 95 O2 Delivery: Room Air - Course Nursing assessment & vital signs reviewed: Yes EKG Interpreted by Me: RATE, Sinus Rhythm, NORMAL AXIS, NORMAL QRS, Non-specific ST Changes - Radiology Exams Chest X-ray Interpretation: Reviewed by me, Negative Ordered Tests: Active Orders 24 hr Category Date Time Status EKG-ER Only STAT Care 02/28/23 22:07 Active IV Insertion STAT Care 02/28/23 22:07 Active CHEST 1 VIEW (PORTABLE) Stat Exams 02/28/23 22:08 Taken AMYLASE Stat Lab 02/28/23 22:37 Completed CBC W DIFF Stat Lab 02/28/23 22:37 Completed CMP Stat Lab 02/28/23 22:37 Completed D-DIMER QUANTITATIVE Stat Lab 02/28/23 22:37 Completed LIPASE Stat Lab 02/28/23 22:37 Completed Lactic Acid Stat Lab 02/28/23 22:07 Completed MAGNESIUM Stat Lab 02/28/23 22:37 Completed NT PRO BNPII Stat Lab 02/28/23 22:37 Completed PROTIME WITH INR Stat Lab 02/28/23 22:37 Completed PTT Stat Lab 02/28/23 22:37 Completed TROPONIN Q4H Lab 02/28/23 22:37 Completed TROPONIN Q4H Lab 03/01/23 00:01 Completed TROPONIN Q4H Lab 03/01/23 06:15 Ordered UA W/RFX UR CULTURE Stat Lab 02/28/23 22:08 Ordered Urine Triage Profile Stat Lab 02/28/23 22:08 Ordered Medication Summary Generic Name Dose Route Start Last Admin Trade Name Gianni PRN Reason Stop Dose Admin Sodium Chloride 1,000 mls @ 100 mls/hr 02/28/23 22:15 02/28/23 22:30 Sodium Chloride 0.9% 1000 Ml IV 03/30/23 22:14 100 mls/hr .Q10H ANTIONETTE Administration Discontinued Medications Generic Name Dose Route Start Last Admin Trade Name Gianni PRN Reason Stop Dose Admin Amlodipine Besylate 10 mg 02/28/23 22:07 02/28/23 22:29 Amlodipine Besylate 5 Mg Tablet PO 02/28/23 22:08 10 mg STAT ONE Administration Amlodipine Besylate Confirm 02/28/23 22:23 Amlodipine Besylate 5 Mg Tablet Administered 02/28/23 22:24 Dose 10 mg .ROUTE .STK-MED ONE Aspirin 81 mg 02/28/23 22:07 02/28/23 22:27 Aspirin 81 Mg Tab.Chew PO 02/28/23 22:08 81 mg STAT ONE Administration Aspirin Confirm 02/28/23 22:22 Aspirin 81 Mg Tab.Chew Administered 02/28/23 22:23 Dose 81 mg .ROUTE .STK-MED ONE Clonidine 0.1 mg 02/28/23 22:07 02/28/23 22:29 Clonidine Hcl 0.1 Mg Tablet PO 02/28/23 22:08 0.1 mg STAT ONE Administration Clonidine Confirm 02/28/23 22:23 Clonidine Hcl 0.1 Mg Tablet Administered 02/28/23 22:24 Dose 0.1 mg .ROUTE .STK-MED ONE Nitroglycerin 0.4 mg 02/28/23 22:07 02/28/23 22:27 Nitroglycerin 0.4 Mg (Ed) 0.4 Mg Tab.Subl SL 02/28/23 22:08 0.4 mg STAT ONE Administration Nitroglycerin Confirm 02/28/23 22:22 Nitroglycerin 0.4 Mg (Ed) 0.4 Mg Tab.Subl Administered 02/28/23 22:23 Dose 0.4 mg SL .STK-MED ONE Lab/Rad Data: Laboratory Result Diagrams 02/28/23 22:37 02/28/23 22:37 Laboratory Results 03/01/23 02/28/23 02/28/23 Range/Units 00:01 22:37 22:37 WBC (4.0-10.5) x10^3/uL RBC (4.1-5.6) x10^6/uL Hgb (12.5-18.0) g/dL Hct (42-50) % MCV (78-100) fL MCH (26-32) pg MCHC (32-36) g/dL RDW (11.5-14.0) % Plt Count (150-450) x10^3/uL MPV (7.5-11.0) fL Gran % (36.0-66.0) % Immature Gran % (Auto) (0.00-0.4) % Nucleat RBC Rel Count (0.00-0.1) % Eos # (Auto) (0-0.5) x10^3/uL Immature Gran # (Auto) (0.00-0.03) x10^3u/L Absolute Lymphs (auto) (1.0-4.6) x10^3/uL Absolute Monos (auto) (0.0-1.3) x10^3/uL Absolute Nucleated RBC (0.00-0.01) x10^3u/L Lymphocytes % (24.0-44.0) % Monocytes % (0.0-12.0) % Eosinophils % (0.00-5.0) % Basophils % (0.0-0.4) % Absolute Granulocytes (1.4-6.9) x10^3/uL Basophils # (0-0.4) x10^3/uL PT 9.8 (9.4-12.5) SECONDS INR 0.89 (0.8-3.0) APTT 29.3 (25.1-36.5) SECONDS D-Dimer 0.31 (0.0-0.50) mg/L Sodium (137-145) mmol/L Potassium (3.5-5.1) mmol/L Chloride (98-107) mmol/L Carbon Dioxide (22-30) mmol/L Anion Gap (5-15) MEQ/L BUN (9-20) mg/dL Creatinine (0.66-1.25) mg/dL Estimated GFR ML/MIN Glucose (74-106) mg/dL Lactic Acid (0.4-2.0) Calcium (8.4-10.2) mg/dL Magnesium (1.6-2.3) mg/dL Total Bilirubin (0.2-1.3) mg/dL AST (17-59) U/L ALT (0-50) U/L Alkaline Phosphatase (38-126) U/L Troponin I < 0.012 < 0.012 (0.000-0.034) ng/mL NT-Pro-B Natriuret Pep (<300) pg/mL Serum Total Protein (6.3-8.2) g/dL Albumin (3.5-5.0) g/dL Amylase (30-110) U/L Lipase (23-300) U/L 02/28/23 02/28/23 02/28/23 Range/Units 22:37 22:37 22:07 WBC 9.6 (4.0-10.5) x10^3/uL RBC 5.11 (4.1-5.6) x10^6/uL Hgb 14.7 (12.5-18.0) g/dL Hct 45.6 (42-50) % MCV 89.2 (78-100) fL MCH 28.8 (26-32) pg MCHC 32.2 (32-36) g/dL RDW 13.7 (11.5-14.0) % Plt Count 236 (150-450) x10^3/uL MPV 12.0 H (7.5-11.0) fL Gran % 53.0 (36.0-66.0) % Immature Gran % (Auto) 0.2 (0.00-0.4) % Nucleat RBC Rel Count 0.0 (0.00-0.1) % Eos # (Auto) 0.28 (0-0.5) x10^3/uL Immature Gran # (Auto) 0.02 (0.00-0.03) x10^3u/L Absolute Lymphs (auto) 3.20 (1.0-4.6) x10^3/uL Absolute Monos (auto) 0.97 (0.0-1.3) x10^3/uL Absolute Nucleated RBC 0.00 (0.00-0.01) x10^3u/L Lymphocytes % 33.3 (24.0-44.0) % Monocytes % 10.1 (0.0-12.0) % Eosinophils % 2.9 (0.00-5.0) % Basophils % 0.5 (0.0-0.4) % Absolute Granulocytes 5.09 (1.4-6.9) x10^3/uL Basophils # 0.05 (0-0.4) x10^3/uL PT (9.4-12.5) SECONDS INR (0.8-3.0) APTT (25.1-36.5) SECONDS D-Dimer (0.0-0.50) mg/L Sodium 140 (137-145) mmol/L Potassium 4.5 (3.5-5.1) mmol/L Chloride 104 (98-107) mmol/L Carbon Dioxide 25 (22-30) mmol/L Anion Gap 15.9 H (5-15) MEQ/L BUN 18 (9-20) mg/dL Creatinine 1.10 (0.66-1.25) mg/dL Estimated GFR 83.8 ML/MIN Glucose 148 H (74-106) mg/dL Lactic Acid 0.9 (0.4-2.0) Calcium 9.3 (8.4-10.2) mg/dL Magnesium 1.9 (1.6-2.3) mg/dL Total Bilirubin 0.20 (0.2-1.3) mg/dL AST 19 (17-59) U/L ALT 27 (0-50) U/L Alkaline Phosphatase 66 (38-126) U/L Troponin I (0.000-0.034) ng/mL NT-Pro-B Natriuret Pep 26.7 (<300) pg/mL Serum Total Protein 7.3 (6.3-8.2) g/dL Albumin 4.3 (3.5-5.0) g/dL Amylase 77 (30-110) U/L Lipase 119 (23-300) U/L - Progress Progress: improved Air Movement: good Blood Culture(s) Obtained: No Antibiotics given: No Medical Desision Making - Diagnostic Testing Diagnostic test were ordered, analyzed, and reviewed by me: Yes Radiological Interpretation: Interpreted by me - Risk of complications The pt has a mod risk of morbidity or mortality based on: Need for prescription drug management - Departure Departure Disposition: Home Clinical Impression: Chest pain Condition: Stable Critical Care Time: No Referrals: JACKIE ROMERO [employer] [Primary Care Provider] - Follow up/PCP as directed Instructions: Malignant Hypertension (DC), Chest Pain (DC)
[2023-03-01 00:49] VITALS: BP 130/68; PULSE 70; RESP 12
--- NOTE | 2023-03-01 09:09 | XRAY ---
Indication: Pain. Comparison: February 10, 2023 Portable apical lordotic chest again hyperinflated and clear. Heart not enlarged. Bony thorax intact. No new/acute findings.
== END 2023-03-01 00:55 | disposition home or self-care (01) ==
LOC: ED 21:56
DX: R07.9 Chest pain, unspecified (principal); R06.02 Shortness of breath; I10 Essential (primary) hypertension; E11.9 Type 2 diabetes mellitus without complications; Z79.4 Long term (current) use of insulin; Z79.84 Long term (current) use of oral hypoglycemic drugs; Z79.899 Other long term (current) drug therapy; Z28.310 Unvaccinated for COVID-19; Z72.0 Tobacco use
CPT/HCPCS: 36000; 36415; 71045; 80053; 82150; 83605; 83690; 83735; 83880; 84484; 85025; 85379; 85610; 85730; 93005; 99284; A9270-GY

== ENCOUNTER 2023-04-28 09:37 | Emergency (ER) | payer OTHER ==
[2023-04-28 09:50] VITALS: PULSE 65; TEMP 97.8
--- NOTE | 2023-04-28 10:09 | ERPHSYRPT ---
- History of Present Illness Time Seen by Provider: 04/28/23 09:59 Source: patient Exam Limitations: no limitations Patient Subjective Stated Complaint: pts tongue began swelling yesterday Triage Nursing Assessment: Pt brought self to the ER, hypertensive, rates pain as 06/07, swelling began yesterday and he thought he would just come in today, no difficulty in swallowing or breathing, denies being sick recently, denies N&V, doesn't appear to be in any distress, playing his switch Physician History: Pt states he finished flagyl 3 days ago for diverticulitis and the next day his tongue became sore and started swelling; denies shortness of air, chest pain, abdominal pain, fever, chills. Allergies/Adverse Reactions: sulfamethoxazole [From Bactrim] Adverse Reaction (Verified 04/28/23 09:50) thrush trimethoprim [From Bactrim] Adverse Reaction (Verified 02/28/23 22:05) thrush Home Medications: Hydrocodone/Acetaminophen [[place] 10-325 Tablet] 10 mg PO QID PRN 02/26/20 [History] Metformin HCl 500 mg PO BID 02/26/20 [History] Esomeprazole Magnesium [Nexium] 40 mg PO DAILY 06/09/20 [History] Isosorbide Mononitrate 30 mg [Imdur 30 MG] 60 mg PO DAILY 11/06/20 [History] Metoprolol Tartrate 25 mg [Lopressor 25MG Tab] 25 mg PO BID 11/06/20 [History] Insulin Glargine,Hum.rec.anlog [Basaglar Ralphpen U-100] 30 units SQ DAILY 09/13/21 [History] Ezetimibe 10 mg [Zetia 10 MG] 10 mg PO DAILY 04/12/22 [History] Atorvastatin Calcium [Lipitor] 80 mg PO DAILY 02/17/23 [History] Desvenlafaxine Succinate [Pristiq] 50 mg PO DAILY 02/17/23 [History] Valsartan [Diovan] 160 mg PO DAILY 02/24/23 [History] Hx Tetanus, Diphtheria Vaccination/Date Given: No Hx Influenza Vaccination/Date Given: No Hx Pneumococcal Vaccination/Date Given: No Travel Risk - International Travel Have you traveled outside of the country in past 3 weeks: No - Coronavirus Screening Are you exhibiting any of the following symptoms?: No Close contact with a COVID-19 positive Pt in past 14-21 Days: No - Vaccine Status Have you recieved a Covid-19 vaccination: No - Review of Systems Constitutional: No Fever, No Chills Ears, Nose, & Throat: Other (tongue swelling and soreness for the past 2 days.) Respiratory: No Dyspnea Cardiac: No Chest Pain Abdominal/Gastrointestinal: No Abdominal Pain Neurological: No Headache - Past Medical History Pertinent Past Medical History: Yes Neurological History: No Pertinent History ENT History: No Pertinent History Cardiac History: Coronary Artery Disease, Hypertension, Myocardial Infarction ([place]) Respiratory History: COPD Endocrine Medical History: Diabetes Type II Musculoskeletal History: Osteoarthritis GI Medical History: Diverticulitis, GERD History: No Pertinent History Psycho-Social History: Anxiety, Depression Male Reproductive Disorders: No Pertinent History Other Medical History: PAST FUSION OF L ANKLE IN 2018, METAL REMOVED IN May. MOST RECENT FUSION . - Past Surgical History Past Surgical History: Yes Neuro Surgical History: No Pertinent History Cardiac: Cardiac Catheterization Respiratory: No Pertinent History Gastrointestinal: Bowel Surgery, Other Genitourinary: No Pertinent History Musculoskeletal: Orthopedic Surgery Male Surgical History: No Pertinent History Other Surgical History: L foot, partial intestine removed, right ring finger reattached - Social History Smoking Status: Current every day smoker How long have you smoked: age 15 Exposure to second hand smoke: Yes Drug Use: none Patient Lives Alone: Yes - Nursing Vital Signs Nursing Vital Signs: Initial Vital Signs Temperature 97.8 F 04/28/23 09:44 Pulse Rate 65 04/28/23 09:44 Blood Pressure 174/96 04/28/23 09:44 O2 Sat by Pulse Oximetry 99 04/28/23 09:44 Pain Scale Pain Intensity 2 - Physical Exam Eye Exam: bilateral eye: PERRL Ear Exam: bilateral ear: TM normal Nasal Exam: normal inspection Throat Exam: tongue swollen (minimal), No pharynx swelling (pharyngeal erythema) Neck Exam: normal inspection Cardiovascular/Respiratory Exam: normal breath sounds, heart sounds normal Abdominal Exam: soft (B.S. normal) Neurologic Exam: alert, cooperative Skin Exam: warm, dry SpO2 Interpretation: normal SpO2: 99 O2 Delivery: Room Air - Course Nursing assessment & vital signs reviewed: Yes Ordered Tests: Medication Summary Discontinued Medications Generic Name Dose Route Start Last Admin Trade Name Gianni PRN Reason Stop Dose Admin Dexamethasone Sodium Phosphate 10 mg 04/28/23 10:08 04/28/23 10:35 Dexamethasone Sod Phosphate 10 Mg/Ml IM 04/28/23 10:09 10 mg STAT ONE Administration Dexamethasone Sodium Phosphate Confirm 04/28/23 10:32 Dexamethasone Sod Phosphate 10 Mg/Ml Administered 04/28/23 10:33 Dose 10 mg .ROUTE .STK-MED ONE Lab/Rad Data: Laboratory Results 04/28/23 Range/Units 10:16 Influenza Type A Ag NEGATIVE (NEGATIVE) Influenza Type B Ag NEGATIVE (NEGATIVE) RSV (PCR) NEGATIVE (NEGATIVE) SARS-CoV-2 (PCR) NEGATIVE (NEGATIVE) Group A Strep Antibody NOT DETECTED (NEGATIVE) - Progress Progress: improved Counseled pt/family regarding: lab results, diagnosis, need for follow-up - Departure Departure Disposition: Home Clinical Impression: Angioedema of tongue, pharyngitis - non-strep Condition: Stable Critical Care Time: No Referrals: JACKIE ROMERO [employer] [Primary Care Provider] - Follow up/PCP as directed Additional Instructions: Do not take flagyl. Follow up with private doctor tomorrow. Prescriptions: Methylprednisolone Packet [Medrol Dosepack] 4 mg PO UD #30 packet
[2023-04-28] MEDS ORDERED: DECADRON 10MG INJ. ONE (10:32)
[2023-04-28] MEDS: DECADRON 10MG INJ. IM ONE (10:35)
[2023-04-28 10:43] LABS: Group A Strep NOT DETECTED (NEGATIVE)
[2023-04-28 10:54] LABS: INFLUENZA A NEGATIVE (NEGATIVE); INFLUENZA B NEGATIVE (NEGATIVE); RESPIRATORY SYNCTIAL VIRUS NEGATIVE (NEGATIVE); SARS-CoV-2 Xpert Express NEGATIVE (NEGATIVE)
[2023-04-28 10:57] VITALS: RESP 18
[2023-04-28 11:59] VITALS: O2SAT 99
[2023-04-28 12:02] VITALS: BP 148/83
== END 2023-04-28 12:05 | disposition home or self-care (01) ==
LOC: ED 09:37
DX: T78.3XXA Angioneurotic edema, initial encounter (principal); J02.9 Acute pharyngitis, unspecified; K14.6 Glossodynia; I10 Essential (primary) hypertension; E11.9 Type 2 diabetes mellitus without complications; Z79.52 Long term (current) use of systemic steroids; Z79.84 Long term (current) use of oral hypoglycemic drugs; Z79.4 Long term (current) use of insulin; Z79.899 Other long term (current) drug therapy; Z28.310 Unvaccinated for COVID-19; Z72.0 Tobacco use
CPT/HCPCS: 0241U; 87651; 96372; 99283; J1100